=== PATIENT | male | born 1950 | race Caucasian/White ===

== ENCOUNTER 2019-12-18 10:17 | Outpatient (CLI) | payer MEDICARE, SELFPAY ==
[2019-12-18 10:37] LABS: Basophils Absolute Auto 0.04 K/mm3 (0.00-0.10); Basophils Percent Auto 0.6 % (0.0-1.0); Eosinophils Absolute Auto 0.19 K/mm3 (0.02-0.50); Eosinophils Percent Auto 2.9 % (1.0-6.0); Hemoglobin 15.1 g/dL (12.4-15.3); Immature Granulocyte Absolute 0.02 K/mm3 (0.00-0.00); Immature Granulocyte Percent A 0.3 % (0.0-0.0); Lymphocytes Absolute Auto 1.57 K/mm3 (1.10-4.50); Lymphocytes Percent Auto 23.9 % (18.0-42.0); Mean Corpuscular HGB Conc 32.1 g/dL (32.0-36.0); Mean Corpuscular Hemoglobin 28.7 pg (27.0-31.0); Mean Corpuscular Volume 89.4 fL (78.0-102.0); Mean Platelet Volume 9.9 fl (8.7-11.0); Monocytes Absolute Auto 0.43 K/mm3 (0.10-0.90); Monocytes Percent Auto 6.5 % (2.0-11.0); Neutrophils Absolute Auto 4.3 K/mm3 (1.7-7.2); Neutrophils Percent Auto 65.8 % (50.0-70.0); Platelet Count Result 201 K/mm3 (150-420); Red Blood Count 5.26 M/mm3 (4.70-6.10); Red Cell Distribution Width 13.5 % (11.6-14.4); White Blood Count 6.6 K/mm3 (4.8-10.8)
[2019-12-18 11:52] LABS: Alanine Aminotransferase 70 U/L (16-63); Albumin Level 3.4 g/dL (3.4-5.0); Alkaline Phosphatase 58 U/L (46-116); Aspartate Amino Transferase 35 U/L (15-37); Bilirubin Direct 0.2 mg/dL (0-0.2); Bilirubin,Total 0.3 mg/dL (0.00-1.00)
[2019-12-21 20:13] LABS: Vitamin D 25 Hydroxy 47 ng/mL (30-100)
[2019-12-23 05:35] LABS: Immunoglobulin A 375 mg/dL (70-320); Immunoglobulin G 1014 mg/dL (600-1540); Immunoglobulin M 75 mg/dL (50-300)
== END 2019-12-18 10:18 | disposition home or self-care (01) ==
PROVIDERS: PCP Nurse Practitioner Family
DX: G35 Multiple sclerosis (principal); Z79.899 Other long term (current) drug therapy
CPT/HCPCS: 36415; 80076; 82306; 82784; 85025; 86355

== ENCOUNTER 2019-12-27 10:41 | Emergency (ER) | payer MEDICARE, OTHER, SELFPAY ==
--- NOTE | ~2019-12-27 | XR_ITS ---
EXAMINATION: XR abdomen/kub 1V INDICATION: Abdominal cramping TECHNIQUE: Supine views of the abdomen were obtained on 2 radiographs. COMPARISON: None FINDINGS: The bowel gas pattern. No dilated there is no evidence of free gas the visualized lung base s are there is moderate osteoarthritis is IMPRESSION: 1. Unremarkable abdominal radiographs. Reviewed, dictated and finalized at location A.
--- NOTE | 2019-12-27 10:53 | ECG_ITS ---
Measurements Intervals [place] Rate: 71 P: 41 WV: 200 QRS: 12 QRSD: 114 T: 39 QT: 405 QTc: 442 Interpretive Statements SINUS RHYTHM BORDERLINE AV CONDUCTION DELAY INTRAVENTRICULAR CONDUCTION DELAY BASELINE WANDER- V6 BORDERLINE ECG Electronically Signed On 12-28-2019 7:07:20 CDT by Giovanny Lino D.O.
--- NOTE | 2019-12-27 11:03 | ED.ABDPAIN ---
HPI - Abdominal Pain General Chief Complaint: Chest Pain Stated Complaint: 69YO male w/ known h.o MS here c/o muscle spasm/cramping that started in his abd this morning. Patient admits to 5 episodes of cramping. HE called EMS and is transported into ED by EMS. Patient is currently asymptomatic. Denies N/V/D. Related Data Home Medications Medication Instructions Recorded Confirmed finasteride 5 mg tablet 5 mg PO DAILY 03/09/19 12/27/19 tamsulosin 0.4 mg capsule 0.4 mg PO DAILY 03/09/19 12/27/19 apixaban 10 mg PO BID 05/21/19 12/27/19 clonazepam 1 mg PO DIRECTED 05/21/19 12/27/19 metoprolol tartrate 25 mg PO BID 05/21/19 12/27/19 allopurinol 300 mg PO DAILY 12/27/19 12/27/19 amlodipine 10 mg PO DAILY 12/27/19 12/27/19 lisinopril 40 mg PO DAILY 12/27/19 12/27/19 Allergies Allergy/AdvReac Type Severity Reaction Status Date / Time diclofenac [Cataflam] Allergy Intermediate hypertensio Verified 10/13/19 13:03 n oseltamivir [Tamiflu] Allergy Intermediate Delusions Verified 10/13/19 13:03 Review of Systems Review of Systems: All systems reviewed & are unremarkable except as noted in HPI and below Constitutional: Constitutional: Reports as per HPI, Reports no additional constitutional complaints, Denies chills, Denies fever(s) and Reports weakness Eyes: Eyes: Reports as per HPI ENT: Reports system reviewed and no additional complaints, except as documented and Reports as per HPI Cardiovascular: Cardiovascular: Reports as per HPI and Reports no additional cardiovascular complaints Respiratory: Respiratory: Reports as per HPI and Reports no additional respiratory complaints Gastrointestinal: Gastrointestinal: Reports as per HPI and Reports no additional gastrointestinal complaints Genitourinary: Genitourinary: Reports no additional male genitourinary complaints and Reports as per HPI Musculoskeletal: Musculoskeletal: Reports no additional musculoskeletal complaints Integumentary/Breasts: Skin/Breast: Reports system reviewed and no additional complaints, except as docu Neurologic: Reports system reviewed and no additional complaints, except as documented Psychiatric: Psychiatric: Reports no additional psychiatric complaints Endocrine: Endocrine: Reports no additional endocrine complaints Hematologic/Lymphatic: Hematologic/Lymphatic: Reports no additional hematologic/lymphatic complaints [facility] Past Medical History Medical History Erectile dysfunction Foot pain ZENAIDA (generalized anxiety disorder) Generalized weakness History of pulmonary embolism HTN (hypertension) Insomnia Multiple sclerosis Surgical History Surgical History History of embolectomy Family History Family History Mother Hypertension Brother Hypertension Sister Hypertension Social History Social History Years smoked: 20 Smoking status: Former smoker Tobacco type: cigarettes Alcohol intake: former Substance use: never Gender identity (if verbalized by the patient): Male Spiritual care concerns: No Exam Const: General: no acute distress and alert; No confusion Nutritional Appearance: obese Orientation/consciousness: patient oriented x3 Limitations: No altered mental status HENMT: Head: normal to inspection Eyes: Conjunctivae: conjunctivae normal Pupils: Equal, round and reactive pupils present Neck: Neck: normal visual inspection Chest: Chest palpation & inspection: normal inspection of the chest Resp: Effort & Inspection: normal respiratory effort Auscultation: clear to auscultation bilaterally Cardio: Rate: regular rate Rhythm: regular rhythm GI: Inspection: non-distended GI Palp: Yes Soft to palpation, Yes Tenderness to palpation present (GI), No Guarding due to palpation
[2019-12-27 11:05] VITALS: BP 158/92; PULSE 72; RESP 17; TEMP 36.4; O2SAT 96
[2019-12-27 11:16] LABS: Basophils Absolute Auto 0.05 K/mm3 (0.00-0.10); Basophils Percent Auto 0.6 % (0.0-1.0); Eosinophils Absolute Auto 0.13 K/mm3 (0.02-0.50); Eosinophils Percent Auto 1.7 % (1.0-6.0); Hematocrit 45.1 % (37.0-46.0); Hemoglobin 14.6 g/dL (12.4-15.3); Immature Granulocyte Absolute 0.04 K/mm3 (0.00-0.00); Immature Granulocyte Percent A 0.5 % (0.0-0.0); Lymphocytes Absolute Auto 1.44 K/mm3 (1.10-4.50); Lymphocytes Percent Auto 18.6 % (18.0-42.0); Mean Corpuscular HGB Conc 32.4 g/dL (32.0-36.0); Mean Corpuscular Hemoglobin 28.8 pg (27.0-31.0); Mean Platelet Volume 9.9 fl (8.7-11.0); Monocytes Absolute Auto 0.49 K/mm3 (0.10-0.90); Monocytes Percent Auto 6.3 % (2.0-11.0); Neutrophils Absolute Auto 5.6 K/mm3 (1.7-7.2); Neutrophils Percent Auto 72.3 % (50.0-70.0); Platelet Count Result 195 K/mm3 (150-420); Red Blood Count 5.07 M/mm3 (4.70-6.10); Red Cell Distribution Width 13.4 % (11.6-14.4); White Blood Count 7.8 K/mm3 (4.8-10.8)
[2019-12-27 11:17] LABS: Add Urine Microscopic? NO; Appearance Urine Clear (Clear); Bilirubin Urine Negative (Negative); Blood Urine Negative (Negative); Color Urine Yellow (Yellow); Glucose Urine UA Negative (Negative); Ketones Urine Negative (Negative); Leukocyte Esterase Ur Negative LEU/UL (Negative); Nitrate Urine Negative (Negative); Protein Urine Negative (Negative); Specific Grav Ur 1.015 (1.010-1.020); Urobilinogen Urine 0.2 mg/dL (0.2-1.0)
[2019-12-27 11:30] LABS: INR 1.1
[2019-12-27 11:34] LABS: Alanine Aminotransferase 66 U/L (16-63); Albumin Level 3.2 g/dL (3.4-5.0); Alkaline Phosphatase 55 U/L (46-116); Anion Gap 8 mmol/L (8-16); Aspartate Amino Transferase 33 U/L (15-37); Bilirubin,Total 0.2 mg/dL (0.00-1.00); Blood Urea Nitrogen 13 mg/dL (7-18); Calcium 8.3 mg/dL (8.5-10.1); Carbon Dioxide 29 mmol/L (21-32); Chloride 104 mmol/L (98-108); Estimated Glomerular Filt Rate > 60; Glucose 121 mg/dL (70-99); Lipase 64 U/L (73-393); Osmolality Calculated 293 mOsm/kg (285-295); Potassium 3.8 mmol/L (3.5-5.1); Sodium 141 mmol/L (136-145); Troponin I < 0.02 ng/mL (0.00-0.056)
[2019-12-27 12:37] VITALS: BP 146/88; PULSE 67; RESP 17; O2SAT 98
== END 2019-12-27 12:50 | disposition home or self-care (01) ==
PROVIDERS: Emergency Provider Family Medicine; PCP Nurse Practitioner Family
DX: G35 Multiple sclerosis (principal); M62.838 Other muscle spasm; Z86.711 Personal history of pulmonary embolism; I10 Essential (primary) hypertension; Z87.891 Personal history of nicotine dependence; Z79.899 Other long term (current) drug therapy
CPT/HCPCS: 36415; 74018; 80053; 81003; 83690; 84484; 85025; 85610; 85730; 93005; 99283; 99284

== ENCOUNTER 2020-05-31 13:45 | Outpatient (CLI) | payer MEDICARE, SELFPAY ==
[2020-05-31 14:08] LABS: Basophils Absolute Auto 0.04 K/mm3 (0.00-0.10); Basophils Percent Auto 0.6 % (0.0-1.0); Eosinophils Absolute Auto 0.17 K/mm3 (0.02-0.50); Eosinophils Percent Auto 2.4 % (1.0-6.0); Hematocrit 46.8 % (37.0-46.0); Hemoglobin 15.2 g/dL (12.4-15.3); Immature Granulocyte Absolute 0.02 K/mm3 (0.00-0.00); Immature Granulocyte Percent A 0.3 % (0.0-0.0); Lymphocytes Absolute Auto 1.81 K/mm3 (1.10-4.50); Lymphocytes Percent Auto 25.2 % (18.0-42.0); Mean Corpuscular HGB Conc 32.5 g/dL (32.0-36.0); Mean Corpuscular Hemoglobin 28.7 pg (27.0-31.0); Mean Corpuscular Volume 88.3 fL (78.0-102.0); Mean Platelet Volume 9.5 fl (8.7-11.0); Neutrophils Absolute Auto 4.6 K/mm3 (1.7-7.2); Neutrophils Percent Auto 64.5 % (50.0-70.0); Platelet Count Result 213 K/mm3 (150-420); Red Cell Distribution Width 13.4 % (11.6-14.4); White Blood Count 7.2 K/mm3 (4.8-10.8)
[2020-05-31 15:07] LABS: Alanine Aminotransferase 55 U/L (16-63); Albumin Level 3.7 g/dL (3.4-5.0); Alkaline Phosphatase 67 U/L (46-116); Aspartate Amino Transferase 24 U/L (15-37); Bilirubin Direct 0.1 mg/dL (0-0.2); Bilirubin,Total 0.3 mg/dL (0.00-1.00); Total Protein 7.5 g/dL (6.4-8.2)
[2020-06-05 11:09] LABS: Immunoglobulin A 418 mg/dL (70-320); Immunoglobulin G 1086 mg/dL (600-1540); Immunoglobulin M 80 mg/dL (50-300)
[2020-06-08 13:01] LABS: Vitamin D 25 Hydroxy 39 ng/mL (30-100)
== END 2020-05-31 13:46 | disposition home or self-care (01) ==
LOC: CHSLAB 13:49
PROVIDERS: PCP Nurse Practitioner Family
DX: G35 Multiple sclerosis (principal); E55.9 Vitamin D deficiency, unspecified; D72.9 Disorder of white blood cells, unspecified
CPT/HCPCS: 36415; 80076; 82306; 82784; 85025; 86355

== ENCOUNTER 2020-06-13 16:14 | Outpatient (NON) | payer MEDICARE, SELFPAY | END 2020-06-13 16:15 | LOC: CHSLAB 16:16 | PROVIDERS: Visit Provider Nurse Practitioner Family | DX: R30.0 Dysuria (principal) | CPT/HCPCS: 87086; 87088 ==

== ENCOUNTER 2020-06-30 12:03 | Observation (INO) | payer MEDICARE, OTHER, SELFPAY ==
[2020-06-30] VITALS (10 sets, daily range): BP systolic 103–162; BP diastolic 68–98; PULSE 79–103; RESP 18–20; TEMP 36.9–38.6; O2SAT 91–93; BMI 47.9
--- NOTE | ~2020-06-30 | CT_ITS ---
EXAMINATION: CT brain wo con EXAM DATE: 06/30/2020 13:39 INDICATION: Head injury, fall yesterday with weakness post covid vaccine 3days ago. TECHNIQUE: Spiral CT of the head was performed without contrast. Axial, coronal and sagittal images were reviewed. The dose-length product (DLP) for this examination was 605.33 mGy-cm. The exposure w as tailored according to patient size, and iterative reconstruction (ASIR) was used as additional dos e reduction technique. Comparison is made to prior examination from 04/17/2017. FINDINGS: There is no acute intraparenchymal hemorrhage. No evidence of intraparenchymal brain mass lesion. No evidence of acute infarction. Please note that initial head CT has limited sensitivity f or small or acute infarctions. There is mild periventricular and subcortical hypodensity, nonspecific but probably related to small vessel ischemic disease. There is moderate prominence of the sulci a nd ventricles related to cerebral atrophy. There is intracranial carotid arteriosclerosis. There a re no extra-axial collections. There is no mass effect or midline shift. The orbits are unremarkabl e. Soft tissue is unremarkable. The visualized sinuses and mastoid air cells are well aerated. IMPRESSION: 1. No acute intracranial findings. 2. Chronic age related findings. Reviewed, dictated and finalized at location B. CIATE PROFESSOR OF ANTHROPOLOGY
--- NOTE | ~2020-06-30 | XR_ITS ---
XR chest 2V DATE: 06/30/2020 13:38 INDICATION: Weakness following Covid vaccination 3 days ago TECHNIQUE: AP and lateral views COMPARISON: 05/21/2019 portable AP chest FINDINGS: No pulmonary infiltrate or consolidation, pulmonary vascular congestion or pleural effusion . No pneumothorax. Mild aortic unfolding and calcification. IMPRESSION: No active disease Reviewed, dictated and finalized at location A. TESTBOARD WORKER IMPRESSION: No active disease
--- NOTE | 2020-06-30 12:48 | ECG_ITS ---
Measurements Intervals [place] Rate: 93 P: 44 AL: 190 QRS: 39 QRSD: 112 T: 44 QT: 399 QTc: 499 Interpretive Statements SINUS RHYTHM VENTRICULAR COUPLETS INTRAVENTRICULAR CONDUCTION DELAY NONSPECIFIC ST & T-WAVE ABNORMALITY- INF/LAT LEADS ABNORMAL ECG Electronically Signed On 06-30-2020 13:19:05 COSTUME RENTAL CLERK by Giovanny Lino D.O.
[2020-06-30 13:17] LABS: Basophils Absolute Auto 0.04 K/mm3 (0.00-0.10); Basophils Percent Auto 0.6 % (0.0-1.0); Eosinophils Absolute Auto 0.02 K/mm3 (0.02-0.50); Eosinophils Percent Auto 0.3 % (1.0-6.0); Hematocrit 45.9 % (37.0-46.0); Hemoglobin 15.2 g/dL (12.4-15.3); Immature Granulocyte Absolute 0.03 K/mm3 (0.00-0.00); Immature Granulocyte Percent A 0.5 % (0.0-0.0); Lymphocytes Absolute Auto 1.07 K/mm3 (1.10-4.50); Lymphocytes Percent Auto 17.1 % (18.0-42.0); Mean Corpuscular HGB Conc 33.1 g/dL (32.0-36.0); Mean Corpuscular Hemoglobin 28.6 pg (27.0-31.0); Mean Corpuscular Volume 86.4 fL (78.0-102.0); Mean Platelet Volume 9.8 fl (8.7-11.0); Monocytes Percent Auto 9.6 % (2.0-11.0); Neutrophils Absolute Auto 4.5 K/mm3 (1.7-7.2); Neutrophils Percent Auto 71.9 % (50.0-70.0); Platelet Count Result 165 K/mm3 (150-420); Red Blood Count 5.31 M/mm3 (4.70-6.10); Red Cell Distribution Width 13.6 % (11.6-14.4); White Blood Count 6.3 K/mm3 (4.8-10.8)
[2020-06-30] MEDS: SODIUM CHLORIDE 0.9% IV 1,000 ML 999 ML IV CONT (13:20)
[2020-06-30 13:32] LABS: INR 1.2; Partial Thromboplastin Time 37.1 SEC (23.90-30.70); Prothrombin Time 12.9 Seconds (9.50-12.10)
[2020-06-30 13:36] LABS: Alanine Aminotransferase 45 U/L (16-63); Albumin Level 3.1 g/dL (3.4-5.0); Alkaline Phosphatase 61 U/L (46-116); Anion Gap 10 mmol/L (8-16); Aspartate Amino Transferase 20 U/L (15-37); Bilirubin,Total 0.4 mg/dL (0.00-1.00); Blood Urea Nitrogen 10 mg/dL (7-18); Calcium 8.6 mg/dL (8.5-10.1); Carbon Dioxide 24 mmol/L (21-32); Chloride 102 mmol/L (98-108); Estimated CRCL calculation 82 ml/min; Estimated Glomerular Filt Rate > 60; Glucose 112 mg/dL (70-99); Lactic Acid Reflex 1.4 mmol/L (0.4-2.0); Magnesium 1.9 mg/dL (1.8-2.4); Osmolality Calculated 282 mOsm/kg (285-295); Potassium 3.7 mmol/L (3.5-5.1); Sodium 136 mmol/L (136-145); Total Protein 7.1 g/dL (6.4-8.2); Troponin I 8.5 ng/L (0.00-60.4)
[2020-06-30 13:38] LABS: BNP 64.7 pg/mL (0-100)
--- NOTE | 2020-06-30 14:20 | ED.SYNCOPE ---
HPI - Syncope General Chief Complaint: Syncope Stated Complaint: Ambulance Source: patient, family and EMS Mode of arrival: EMS Limitations: no limitations History of Present Illness HPI narrative: this is a 61-year-old gentleman presents via EMS after he has been feeling weak since he had a 2nd COVID vaccine on Saturday and earlier today he will forward striking his head with no loss of consciousness, the patient actually is not sure if he had any head injury but states that he fell forward and because of being on Eliquis the concern is that he hit his head. Otherwise no loss of consciousness the patient recalls this this event with no headaches no blurry vision no shortness of breath no fever or chills. The patient has a history of PE, history of stroke with right-sided weakness history of multiple sclerosis, hypertension and hyperlipidemia. complaint: felt faint and almost passed out Onset (ago): hour(s) Related Data Home Medications Medication Instructions Recorded Confirmed finasteride 5 mg tablet 5 mg PO DAILY 03/09/19 06/30/20 tamsulosin 0.4 mg capsule 0.4 mg PO DAILY 03/09/19 06/30/20 clonazepam 1 mg PO DIRECTED 05/21/19 06/30/20 tizanidine 4 mg capsule 4 mg PO DAILY PRN cap 12/28/19 06/30/20 allopurinol 300 mg PO DAILY 06/30/20 06/30/20 amlodipine 10 mg PO DAILY 06/30/20 06/30/20 apixaban [Eliquis] 10 mg PO BID 06/30/20 06/30/20 atorvastatin 20 mg PO DAILY 06/30/20 06/30/20 metoprolol tartrate 25 mg PO BID 06/30/20 06/30/20 Allergies Allergy/AdvReac Type Severity Reaction Status Date / Time diclofenac [Cataflam] Allergy Intermediate hypertensio Verified 06/30/20 12:46 n oseltamivir [Tamiflu] Allergy Intermediate Delusions Verified 06/30/20 12:46 Review of Systems Review of Systems: All systems reviewed & are unremarkable except as noted in HPI and below PMFSH Past Medical History Medical History (Updated 06/30/20 @ 14:28 by Rickie Maldonado MD) Erectile dysfunction Foot pain ZENAIDA (generalized anxiety disorder) Generalized weakness History of pulmonary embolism HTN (hypertension) Insomnia Multiple sclerosis Surgical History Surgical History History of embolectomy Family History Family History Mother Hypertension Brother Hypertension Sister Hypertension Social History Social History Years smoked: 20 Smoking status: Former smoker Tobacco type: cigarettes Alcohol intake: former Substance use: never Gender identity (if verbalized by the patient): Male Spiritual care concerns: No Exam Const: General: no acute distress and alert Orientation/consciousness: patient oriented x3 HENMT: Head: normal to inspection Eyes: Conjunctivae: conjunctivae normal Pupils: Equal, round and reactive pupils present Resp: Effort & Inspection: normal respiratory effort Auscultation: clear to auscultation bilaterally Cardio: Rate: regular rate Rhythm: regular rhythm Urinary Catheter: Urinary Catheter: patent and draining Back/Spine/Pelvis: Back: no CVA tenderness Skin: General skin exam: normal color Rashes: no rashes Extrem: General: normal to inspection Psych: Mental Status: mental status grossly normal Affect: normal affect Attitude: cooperative Course Course Emergency Course: Reassessment of patient continues to be comfortable with no acute pain no headaches no blurry vision but continues to feel weak. The patient received IV fluids and labs and CT and x-rays reviewed with patient and family and will admit patient for observation. Vital Signs Vital signs: Vital Signs Temperature 36.9 C 06/30/20 12:30 Pulse Rate 84 06/30/20 12:30 Respiratory Rate 20 06/30/20 12:30 Blood Pressure 103/68 06/30/20 12:30 Pulse Oximetry 91 06/30/20 12:30 Temperature 36.9 C 06/30/20 12:
[2020-06-30 15:47] LABS: Add Urine Microscopic? YES; Appearance Urine Clear (Clear); Bilirubin Urine Negative (Negative); Blood Urine Negative (Negative); Color Urine Yellow (Yellow); Glucose Urine UA Negative (Negative); Ketones Urine Trace (Negative); Leukocyte Esterase Ur 3+ (Negative); Nitrate Urine Negative (Negative); Protein Urine Negative (Negative); Specific Grav Ur 1.015 (1.010-1.020); Urobilinogen Urine 0.2 mg/dL (0.2-1.0)
[2020-06-30 16:43] LABS: WBC Clumps Urine Present /hpf; WBC Urine >75 /hpf (0-3)
[2020-06-30 16:44] LABS: Bacteria Urine 4+ /hpf
[2020-06-30] MEDS: APIXABAN 2.5 MG TABLET 10 MG BY MOUTH (20:29)
[2020-06-30] MEDS: clonazePAM (*CRX) 0.5 MG TABLET 2 MG PO (20:29)
[2020-06-30] MEDS: METOPROLOL TARTRATE 25 MG TABLET PO (20:30)
[2020-06-30] MEDS: LACTATED RINGERS 1,000 ML 100 ML IV CONT (20:47)
[2020-06-30] MEDS: ACETAMINOPHEN 325 MG TABLET 650 MG PO (23:40)
[2020-07-01 00:43] VITALS: TEMP 38.7
--- NOTE | 2020-07-01 01:53 | PC.NURSE ---
pt sleeping, iv fluids infusing per order, no evidence of distress noted at this time.
[2020-07-01 02:39] LABS: Basophils Absolute Auto 0.03 K/mm3 (0.00-0.10); Basophils Percent Auto 0.5 % (0.0-1.0); Eosinophils Absolute Auto 0.04 K/mm3 (0.02-0.50); Eosinophils Percent Auto 0.6 % (1.0-6.0); Hematocrit 43.4 % (37.0-46.0); Hemoglobin 14.4 g/dL (12.4-15.3); Immature Granulocyte Absolute 0.02 K/mm3 (0.00-0.00); Immature Granulocyte Percent A 0.3 % (0.0-0.0); Lymphocytes Absolute Auto 1.58 K/mm3 (1.10-4.50); Lymphocytes Percent Auto 24.4 % (18.0-42.0); Mean Corpuscular HGB Conc 33.2 g/dL (32.0-36.0); Mean Corpuscular Hemoglobin 28.9 pg (27.0-31.0); Mean Platelet Volume 9.8 fl (8.7-11.0); Monocytes Absolute Auto 0.83 K/mm3 (0.10-0.90); Monocytes Percent Auto 12.8 % (2.0-11.0); Neutrophils Percent Auto 61.4 % (50.0-70.0); Platelet Count Result 174 K/mm3 (150-420); Red Blood Count 4.99 M/mm3 (4.70-6.10); Red Cell Distribution Width 13.6 % (11.6-14.4); White Blood Count 6.5 K/mm3 (4.8-10.8)
[2020-07-01 03:13] LABS: Alanine Aminotransferase 35 U/L (16-63); Albumin Level 2.8 g/dL (3.4-5.0); Alkaline Phosphatase 52 U/L (46-116); Anion Gap 11 mmol/L (8-16); Aspartate Amino Transferase 19 U/L (15-37); Bilirubin,Total 0.3 mg/dL (0.00-1.00); Blood Urea Nitrogen 13 mg/dL (7-18); Calcium 7.9 mg/dL (8.5-10.1); Carbon Dioxide 23 mmol/L (21-32); Chloride 105 mmol/L (98-108); Estimated CRCL calculation 90 ml/min; Estimated Glomerular Filt Rate > 60; Glucose 137 mg/dL (70-99); Osmolality Calculated 290 mOsm/kg (285-295); Potassium 3.7 mmol/L (3.5-5.1); Sodium 139 mmol/L (136-145); Total Protein 6.3 g/dL (6.4-8.2)
[2020-07-01 04:00] VITALS: BP 98/69; PULSE 80; RESP 20; TEMP 37.3; O2SAT 90
[2020-07-01] MEDS: LACTATED RINGERS 1,000 ML 100 ML IV CONT (06:18)
[2020-07-01 08:00] VITALS: BP 119/82; PULSE 83; RESP 18; TEMP 36.9; O2SAT 92
--- NOTE | 2020-07-01 08:17 | PM.DS ---
DS: Summary Hospital Course Hospital Course: This is a 61-year-old male that presented to [facility] ED via EMS after generalized weakness post fall. Patient has a past medical history of erectile dysfunction, foot pain, ZENAIDA, general lysed weakness, history of PE, hypertension, insomnia and multiple sclerosis. According to patient a couple of weeks ago he presented to his primary care physician office and was found to have a urinary tract infection and given antibiotics that he had completed he also notes that he received his Covid vaccine on Saturday and afterwards he became very fatigued, with generalized weakness. Patient notes that he has been lying in bed since his Covid vaccine. While his was attempting to transfer him out of the wheelchair patient fell for he does deny hitting his head. Patient CT of his head negative for any infarcts or fractures patient chest x-ray unremarkable UA did indicate leukocytes, lactic acid negative. Patient was started on Rocephin. Patient was admitted for generalized weakness and urinary tract infection. Today patient states that his condition is much improved we will consult PT OT to see if he will need outpatient physical therapy/Occupational Therapy will also discharged with Bactrim to treat his urinary tract infection his UA culture is pending. The patient denies SOB, CP, palpitation, extremity numbness, headache, vertigo, double vision, visual disturbance, lightheadedness, dizziness, constipation, diarrhea, chills, or fever. Time Spent with Patient Time attestation: Total time spent providing and/or coordinating discharge services: DS: Data Data Completed and Pending Labs on day of discharge: Labs from last 24 hours 07/01/20 07/01/20 06/30/20 02:33 02:33 15:41 WBC 6.5 RBC 4.99 Hgb 14.4 Hct 43.4 MCV 87.0 MCH 28.9 MCHC 33.2 RDW 13.6 Plt Count 174 MPV 9.8 Immature Gran % (Auto) 0.3 H Neut % (Auto) 61.4 Lymph % (Auto) 24.4 Archer % (Auto) 12.8 H Eos % (Auto) 0.6 L Baso % (Auto) 0.5 Lymph # (Auto) 1.58 Archer # (Auto) 0.83 Eos # (Auto) 0.04 Baso # (Auto) 0.03 Abs Immat Gran (auto) 0.02 H Absolute Neuts (auto) 4.0 Absolute Nucleated RBC 0.00 Nucleated RBC % 0.0 PT INR APTT Sodium 139 Potassium 3.7 Chloride 105 Carbon Dioxide 23 Anion Gap 11 BUN 13 Creatinine 1.12 Estim Creat Clear Calc 90 Estimated GFR > 60 Glucose 137 H Calculated Osmolality 290 Lactic Acid Calcium 7.9 L Magnesium Total Bilirubin 0.3 AST 19 ALT 35 Alkaline Phosphatase 52 Troponin I B-Natriuretic Peptide Total Protein 6.3 L Albumin 2.8 L Urine Color Yellow Urine Appearance Clear Urine pH 7.0 Ur Specific Macy 1.015 Urine Protein Negative Urine Glucose (UA) Negative Urine Ketones Trace H Ur Blood (Man) Negative Urine Nitrate Negative Urine Bilirubin Negative Urine Urobilinogen 0.2 Ur Leukocyte Esterase 3+ H Urine WBC >75 H Urine WBC Clumps Present H Urine Bacteria 4+ H 06/30/20 06/30/20 06/30/20 13:12 13:12 13:12 WBC RBC Hgb Hct MCV MCH MCHC RDW Plt Count MPV Immature Gran % (Auto) Neut % (Auto) Lymph % (Auto) Archer % (Auto) Eos % (Auto) Baso % (Auto) Lymph # (Auto) Archer # (Auto) Eos # (Auto) Baso # (Auto) Abs Immat Gran (auto) Absolute Neuts (auto) Absolute Nucleated RBC Nucleated RBC % PT 12.9 H INR 1.2 APTT 37.1 H Sodium 136 Potassium 3.7 Chloride 102 Carbon Dioxide 24 Anion Gap 10 BUN 10 Creatinine 1.06 Estim Creat Clear Calc 82 Estimated GFR > 60 Glucose 112 H Calculated Osmolality 282 L Lactic Acid 1.4 Calcium 8.6 Magnesium 1.9 Total Bilirubin 0.4 AST 20 ALT 45 Alkaline Phosphatase 61 Troponin I 8.5 B-Natriuretic Peptide 64.7 Tot
[2020-07-01] MEDS: DULoxetine HCL 30 MG CAPSULE.DR 60 MG PO (08:46)
[2020-07-01] MEDS: APIXABAN 2.5 MG TABLET 10 MG BY MOUTH (08:46)
[2020-07-01] MEDS: ATORVASTATIN 10 MG TABLET 20 MG PO (08:47)
[2020-07-01] MEDS: FINASTERIDE 5 MG TABLET PO (08:47)
[2020-07-01] MEDS: lisinopriL 20 MG TABLET 40 MG PO (08:47)
[2020-07-01] MEDS: allopurinoL 300 MG TABLET PO (08:47)
[2020-07-01] MEDS: TAMSULOSIN HCL 0.4 MG CAPSULE PO (08:47)
[2020-07-01 08:48] VITALS: PULSE 83
[2020-07-01] MEDS: METOPROLOL TARTRATE 25 MG TABLET PO (08:48)
[2020-07-01] MEDS: amLODIPine BESYLATE 5 MG TABLET 10 MG PO (08:48)
--- NOTE | 2020-07-01 09:54 | PM.SD2 ---
Same Day Admit/Disch: HPI History of Present Illness Chief complaint: weakness dehydration <SONIYA Roe - Last Filed: 07/01/20 11:25> Narrative: This is a 61-year-old male that presented to [facility] ED via EMS after generalized weakness post fall. Patient has a past medical history of erectile dysfunction, foot pain, ZENAIDA, general lysed weakness, history of PE, hypertension, insomnia and multiple sclerosis. According to patient a couple of weeks ago he presented to his primary care physician office and was found to have a urinary tract infection and given antibiotics that he had completed he also notes that he received his Covid vaccine on Saturday and afterwards he became very fatigued, with generalized weakness. Patient notes that he has been lying in bed since his Covid vaccine. While his was attempting to transfer him out of the wheelchair patient fell for he does deny hitting his head. Patient CT of his head negative for any infarcts or fractures patient chest x-ray unremarkable UA did indicate leukocytes, lactic acid negative. Patient was started on Rocephin. Patient was admitted for generalized weakness and urinary tract infection. Today patient states that his condition is much improved we will consult PT OT to see if he will need outpatient physical therapy/Occupational Therapy will also discharged with Bactrim to treat his urinary tract infection his UA culture is pending. The patient denies SOB, CP, palpitation, extremity numbness, headache, vertigo, double vision, visual disturbance, lightheadedness, dizziness, constipation, diarrhea, chills, or fever. Disposition: Patient will discharge home with the [facility]pc and home health/PT OT Patient being treated for urinary tract infection and prostatitis he will take Bactrim for 4 weeks <SONIYA Roe - Last Filed: 07/01/20 11:25> PMF Past Medical History Medical History: Medical History (Updated 07/01/20 @ 11:23 by SONIYA Roe) Erectile dysfunction Foot pain ZENAIDA (generalized anxiety disorder) Generalized weakness History of pulmonary embolism HTN (hypertension) Insomnia Multiple sclerosis <SONIYA Roe - Last Filed: 07/01/20 11:25> Surgical History Surgical History: Surgical History History of embolectomy <SONIYA Roe - Last Filed: 07/01/20 11:25> Family History Family History: Family History Mother Hypertension Brother Hypertension Sister Hypertension <SONIYA Roe - Last Filed: 07/01/20 11:25> Social History Social History: Social History Years smoked: 20 Smoking status: Former smoker Tobacco type: cigarettes Alcohol intake: former Drinks per week: 12 Substance use: never Gender identity (if verbalized by the patient): Male Spiritual care concerns: No <SONIYA Roe - Last Filed: 07/01/20 11:25> Same Day Admit/Disch: Med Pre-admit Medications Home Medications: Home Medications Medication Instructions Recorded Confirmed Type finasteride 5 mg tablet 5 mg PO DAILY 03/09/19 06/30/20 History tamsulosin 0.4 mg capsule 0.4 mg PO DAILY 03/09/19 06/30/20 History clonazepam 1 mg PO DIRECTED 05/21/19 06/30/20 History tizanidine 4 mg capsule 4 mg PO DAILY PRN cap 12/28/19 06/30/20 History duloxetine 30 mg capsule,delayed 60 mg PO DAILY #180 cap 04/04/20 06/30/20 Rx release lidocaine 5 % topical patch See Rx Instructions .ROUTE 05/02/20 06/30/20 Rx .COMPLEX #30 patch lisinopril 40 mg tablet 40 mg PO DAILY #90 tablet 05/23/20 06/30/20 Rx Eliquis 10 mg PO BID 06/30/20 06/30/20 History allopurinol 300 mg PO DAILY 06/30/20 06/30/20 History amlodipine 10 mg PO DAILY 06/30/20 06/30/20 History atorvastatin 20 mg PO DAILY 06/30/20 06/30/20 History
[2020-07-01 12:00] VITALS: BP 108/84; PULSE 88; RESP 18; TEMP 36.9; O2SAT 91
[2020-07-01] MEDS: clonazePAM (*CRX) 0.5 MG TABLET 1 MG PO (12:04)
--- NOTE | 2020-07-01 14:31 | PC.NURSE ---
Patient left the floor via wheelchair. Patient discharged to home. Left with his . Discharge instruction given to patient. All personal belongings left with patient.
--- NOTE | 2020-07-05 14:14 | PC.NURSE ---
Pt states he received and understood his discharge instructions. Pt has no other comments.
== END 2020-07-01 13:25 | disposition home health service (06) ==
LOC: CHSED 14:28 → CHS2ND 14:45
PROVIDERS: Admitting Provider Emergency Medicine; Emergency Provider Emergency Medicine; PCP Nurse Practitioner Family; Visit Provider Emergency Medicine
DX: N39.0 Urinary tract infection, site not specified (principal); E86.0 Dehydration; N40.0 Benign prostatic hyperplasia without lower urinary tract symptoms; I69.351 Hemiplegia and hemiparesis following cerebral infarction affecting right dominant side; G35 Multiple sclerosis; I10 Essential (primary) hypertension; E78.5 Hyperlipidemia, unspecified; M19.90 Unspecified osteoarthritis, unspecified site; F41.1 Generalized anxiety disorder; Z86.711 Personal history of pulmonary embolism; Z79.02 Long term (current) use of antithrombotics/antiplatelets; Z87.891 Personal history of nicotine dependence
CPT/HCPCS: 36415; 70450; 71046; 80053; 81001; 83605; 83735; 83880; 84484; 85025; 85610; 85730; 87040; 87077; 87086; 87088; 87186; 93005; 96360; 96361; 96365; 96366; 97162; 97165; 99285; A9270; G0378; J0696; J7030; J7120

== ENCOUNTER 2020-11-24 20:44 | Emergency (ER) | payer MEDICARE, OTHER, SELFPAY ==
[2020-11-24 21:41] VITALS: BP 156/100; PULSE 101; RESP 20; TEMP 36.8; O2SAT 94
--- NOTE | 2020-11-24 22:08 | ED.ALCOHOL ---
HPI - Alcohol General Chief Complaint: Urogenital-Male Stated Complaint: possible UTI Time Seen by Provider: 11/24/20 21:43 Source: patient and RN notes reviewed Mode of arrival: wheelchair Limitations: no limitations History of Present Illness HPI narrative: urinary hesitancy which suggests a UTI from prior experience. Chronic alcohol use: No Recent trauma: No Associated symptoms: denies other symptoms Treatments prior to arrival: none Related Data Home Medications Medication Instructions Recorded Confirmed finasteride 5 mg tablet 5 mg PO DAILY 03/09/19 11/24/20 tamsulosin 0.4 mg capsule 0.4 mg PO DAILY 03/09/19 11/24/20 clonazepam 1 mg PO DIRECTED 05/21/19 11/24/20 tizanidine 4 mg capsule 4 mg PO DAILY PRN cap 12/28/19 11/24/20 Eliquis 10 mg PO BID 06/30/20 11/24/20 allopurinol 300 mg PO DAILY 06/30/20 11/24/20 atorvastatin 20 mg PO DAILY 06/30/20 11/24/20 metoprolol tartrate 25 mg PO BID 06/30/20 11/24/20 Allergies Allergy/AdvReac Type Severity Reaction Status Date / Time diclofenac [Cataflam] Allergy Intermediate hypertensio Verified 11/03/20 07:47 n oseltamivir [Tamiflu] Allergy Intermediate Delusions Verified 11/03/20 07:47 Review of Systems Review of Systems: All systems reviewed & are unremarkable except as noted in HPI and below Constitutional: Constitutional: Reports as per HPI and Reports no additional constitutional complaints Eyes: Eyes: Reports as per HPI and Reports no additional eye complaints ENT: Reports system reviewed and no additional complaints, except as documented and Reports as per HPI Cardiovascular: Cardiovascular: Reports as per HPI and Reports no additional cardiovascular complaints Respiratory: Respiratory: Reports as per HPI and Reports no additional respiratory complaints Gastrointestinal: Gastrointestinal: Reports as per HPI and Reports no additional gastrointestinal complaints Genitourinary: Genitourinary: Reports no additional male genitourinary complaints and Reports as per HPI Musculoskeletal: Musculoskeletal: Reports no additional musculoskeletal complaints and Reports as per HPI Comments: Pt has MS Integumentary/Breasts: Skin/Breast: Reports system reviewed and no additional complaints, except as docu and Reports as per HPI Neurologic: Reports system reviewed and no additional complaints, except as documented and Reports as per HPI Psychiatric: Psychiatric: Reports no additional psychiatric complaints and Reports as per HPI Endocrine: Endocrine: Reports no additional endocrine complaints and Reports as per HPI Hematologic/Lymphatic: Hematologic/Lymphatic: Reports no additional hematologic/lymphatic complaints and Reports as per HPI Allergic/Immunologic: Allergic/Immunologic: Reports no additional allergic/immunologic complaints and Reports as per HPI [facility] Past Medical History Medical History (Updated 11/24/20 @ 22:21 by Silvia Lazcano MD) Erectile dysfunction Foot pain ZENAIDA (generalized anxiety disorder) Generalized weakness History of pulmonary embolism HTN (hypertension) Insomnia Multiple sclerosis Surgical History Surgical History History of embolectomy Family History Family History Mother Hypertension Brother Hypertension Sister Hypertension Social History Social History Years smoked: 20 Smoking status: Never smoker Tobacco type: cigarettes Alcohol intake: former Drinks per week: 12 Substance use: never Gender identity (if verbalized by the patient): Male Spiritual care concerns: No Exam Const: General: no acute distress Orientation/consciousness: patient oriented x3 Limitations: no limitations HENMT: Head: normal to inspection Ears: external ears normal and TM's normal bilaterally General nose exam: Normal external nose present and [place]
[2020-11-24] MEDS: LIDOCAINE HCL 1% LOCAL INJ 20 ML VIAL (22:14)
[2020-11-24] MEDS: cefTRIAXone 1 GM VIAL IM (22:14)
[2020-11-24 22:17] LABS: Appearance Urine Cloudy (Clear); Bilirubin Urine Negative (Negative); Blood Urine 3+ (Negative); Glucose Urine UA Negative (Negative); Ketones Urine Negative (Negative); Leukocyte Esterase Ur Negative (Negative); Nitrate Urine Positive (Negative); Protein Urine 3+ (Negative); Specific Grav Ur 1.025 (1.010-1.020); Urobilinogen Urine 0.2 mg/dL (0.2-1.0)
[2020-11-24 22:23] LABS: Add Urine Microscopic? YES; Color Urine Light Red (Yellow)
[2020-11-24 22:24] LABS: Bacteria Urine 4+ /hpf; RBC Urine >75 /hpf (0-2); Squamous Epithelial Cell Urine None seen /hpf (Few); WBC Urine 0-3 /hpf (0-3)
[2020-11-24 22:40] VITALS: BP 150/98; PULSE 90; RESP 18; TEMP 36.3; O2SAT 100
== END 2020-11-24 22:42 | disposition home or self-care (01) ==
PROVIDERS: Emergency Provider Emergency Medicine; PCP Nurse Practitioner Family
DX: N30.00 Acute cystitis without hematuria (principal); I10 Essential (primary) hypertension; G35 Multiple sclerosis
CPT/HCPCS: 81001; 96372; 99283; J0696

== ENCOUNTER 2020-12-08 10:26 | Outpatient (NON) | payer MEDICARE, OTHER, SELFPAY | END 2020-12-08 10:27 | disposition home or self-care (01) | LOC: CHSLAB 10:27 | PROVIDERS: Visit Provider Nurse Practitioner Family | DX: R39.9 Unspecified symptoms and signs involving the genitourinary system (principal) | CPT/HCPCS: 87086; 87088 ==

== ENCOUNTER 2021-07-04 11:21 | Outpatient (NON) | payer MEDICARE, SELFPAY | END 2021-07-04 11:22 | disposition home or self-care (01) | LOC: CHSLAB 11:22 | PROVIDERS: Visit Provider Nurse Practitioner Family | DX: N39.0 Urinary tract infection, site not specified (principal) | CPT/HCPCS: 87086; 87088 ==

== ENCOUNTER 2021-12-02 10:19 | Emergency (ER) | payer MEDICARE, SELFPAY ==
[2021-12-02 10:19] VITALS: BP 135/91; PULSE 77; RESP 20; TEMP 36.5; O2SAT 97
--- NOTE | 2021-12-02 10:34 | ED.MALEGU ---
HPI - Male Genitourinary General Chief complaint: Urogenital-Male Stated complaint: abdomin pain Time Seen by Provider: 12/02/21 10:34 Source: patient and RN notes reviewed Mode of arrival: ambulatory Limitations: no limitations History of Present Illness Complaint: dysuria Onset (ago): day(s) (1) Duration: constant Severity: moderate Quality: burning Relieving factors: none Exacerbating factors: urination Associated symptoms: Reports denies other symptoms Related Data Home Medications Medication Instructions Recorded Confirmed finasteride 5 mg tablet 5 mg PO DAILY 03/09/19 11/24/20 tamsulosin 0.4 mg capsule (Flomax) 0.4 mg PO DAILY 03/09/19 11/24/20 clonazepam 1 mg tablet 1 mg PO DIRECTED 05/21/19 11/24/20 tizanidine 4 mg capsule 4 mg PO DAILY PRN Muscle Pain 12/28/19 11/24/20 Allergies Allergy/AdvReac Type Severity Reaction Status Date / Time diclofenac [Cataflam] Allergy Intermediate hypertensio Verified 04/04/21 08:35 n oseltamivir [Tamiflu] Allergy Intermediate Delusions Verified 04/04/21 08:35 Review of Systems Review of Systems: All systems reviewed & are unremarkable except as noted in HPI and below PMFSH Past Medical History Medical History (Updated 12/02/21 @ 11:15 by Otis Pelletier MD) Erectile dysfunction Foot pain ZENAIDA (generalized anxiety disorder) Generalized weakness History of pulmonary embolism HTN (hypertension) Insomnia Multiple sclerosis Surgical History Surgical History History of embolectomy Family History Family History Mother Hypertension Brother Hypertension Sister Hypertension Social History Social History Years smoked: 20 Smoking status: Never smoker Tobacco type: cigarettes Alcohol intake: former Drinks per week: 12 Substance use: never Gender identity (if verbalized by the patient): Male Sexual Orientation (if Verbalized by the Patient): Straight or Heterosexual Spiritual care concerns: No Exam Const: General: no acute distress, alert and ill appearing chronically Nutritional Appearance: well nourished and obese morbidly obese Limitations: no limitations HENMT: Head: normal to inspection Eyes: Conjunctivae: conjunctivae normal Pupils: Equal, round and reactive pupils present EOM: EOMs intact bilaterally Neck: Neck: normal visual inspection Resp: Effort & Inspection: normal respiratory effort Auscultation: clear to auscultation bilaterally Cardio: Rate: regular rate Rhythm: regular rhythm GI: GI Palp: Yes Soft to palpation and No Tenderness to palpation present (GI) Auscultation: normal bowel sounds Skin: General skin exam: normal color Neuro: General: patient oriented x3 Cranial nerves: Yes CN's II-XII intact bilaterally Speech: normal speech Other: Patient is wheelchair-bound. He is able to move his upper extremities without difficulty. Lower extremities are weak. Extrem: General: edema bilateral Psych: Mental Status: mental status grossly normal Affect: normal affect Attitude: cooperative Course Vital Signs Vital signs: Vital Signs Temperature 36.5 C 12/02/21 10:19 Pulse Rate 77 12/02/21 10:19 Respiratory Rate 20 12/02/21 10:19 Blood Pressure 135/91 H 12/02/21 10:19 Pulse Oximetry 97 12/02/21 10:19 Oxygen Delivery Room Air 12/02/21 10:19 Temperature 36.5 C 12/02/21 11:24 Pulse Rate 77 12/02/21 11:24 Respiratory Rate 20 12/02/21 11:24 Blood Pressure 137/86 12/02/21 11:24 Pulse Oximetry 97 12/02/21 11:24 Oxygen Delivery Room Air 12/02/21 11:24 MDM - Male Genitourinary Differential Diagnosis Differential diagnosis: Likely urinary tract infection, urethritis and acute retention of urine Lab Data Attestation: I reviewed the patient's lab results. Labs: Lab Results 12/02/21 Range/Unit
[2021-12-02 11:01] LABS: Add Urine Microscopic? YES; Appearance Urine Clear (Clear); Bilirubin Urine Negative (Negative); Blood Urine 3+ (Negative); Color Urine Yellow (Yellow); Glucose Urine UA Negative (Negative); Ketones Urine Negative (Negative); Leukocyte Esterase Ur Negative LEU/UL (Negative); Nitrate Urine Negative (Negative); Protein Urine 1+ (Negative); Specific Grav Ur 1.025 (1.010-1.020); Urobilinogen Urine 0.2 mg/dL (0.2-1.0)
[2021-12-02 11:06] LABS: Bacteria Urine Trace /hpf; RBC Urine >75 /hpf (0-2); Squamous Epithelial Cell Urine Rare /hpf (Few); WBC Urine None seen /hpf (0-3)
[2021-12-02 11:24] VITALS: BP 137/86; PULSE 77; RESP 20; TEMP 36.5; O2SAT 97
== END 2021-12-02 11:57 | disposition home or self-care (01) ==
PROVIDERS: Emergency Provider Emergency Medicine; PCP Nurse Practitioner Family
DX: N40.1 Benign prostatic hyperplasia with lower urinary tract symptoms (principal); I10 Essential (primary) hypertension; G35 Multiple sclerosis; Z87.891 Personal history of nicotine dependence
CPT/HCPCS: 81001; 99283

== ENCOUNTER 2021-12-04 07:28 | Observation (INO) | payer MEDICARE, SELFPAY ==
[2021-12-04] VITALS (14 sets, daily range): BP systolic 90–174; BP diastolic 60–89; PULSE 82–122; RESP 15–25; TEMP 37.2–38.1; O2SAT 90–95; BMI 40.8
--- NOTE | ~2021-12-04 | XR_ITS ---
EXAMINATION: XR chest 1V portable DATE: 12/04/2021 09:32 INDICATION: Fever. TECHNIQUE: A single frontal view of the chest was obtained. COMPARISON: Chest 2 views 06/30/2020, chest CT 06/19/2018 FINDINGS: The chest demonstrates clear lungs without pneumonia, pleural effusion, or pneumothorax. Th e heart size is normal. IMPRESSION: 1. No acute cardiopulmonary disease. Reviewed, dictated and finalized at location A.
--- NOTE | 2021-12-04 08:04 | ECG_ITS ---
Measurements Intervals [place] Rate: 120 P: 46 RI: 171 QRS: 37 QRSD: 112 T: 15 QT: 361 QTc: 510 Interpretive Statements SINUS TACHYCARDIA INCOMPLETE RIGHT BUNDLE BRANCH BLOCK ST & T-WAVE ABNORMALITY ANTEROLATERAL LEADS, CONSIDER MYOCARDIAL ISCHEMIA ABNORMAL ECG COMPARED TO ECG 06/30/2020 13:03:30 SINUS TACHYCARDIA NOW PRESENT INCOMPLETE RIGHT BUNDLE-BRANCH BLOCK NOW PRESENT Electronically Signed On 12-04-2021 16:34:05 CDT by Jay Conroy M.D.
[2021-12-04 08:30] LABS: Basophils Absolute Auto 0.03 K/mm3 (0.00-0.10); Basophils Percent Auto 0.5 % (0.0-1.0); Eosinophils Absolute Auto 0.03 K/mm3 (0.02-0.50); Eosinophils Percent Auto 0.5 % (1.0-6.0); Hematocrit 46.4 % (37.0-46.0); Hemoglobin 15.1 g/dL (12.4-15.3); Immature Granulocyte Absolute 0.03 K/mm3 (0.00-0.00); Immature Granulocyte Percent A 0.5 % (0.0-0.0); Lymphocytes Absolute Auto 0.86 K/mm3 (1.10-4.50); Mean Corpuscular HGB Conc 32.5 g/dL (32.0-36.0); Mean Corpuscular Hemoglobin 28.7 pg (27.0-31.0); Mean Platelet Volume 9.5 fl (8.7-11.0); Monocytes Percent Auto 9.1 % (2.0-11.0); Neutrophils Absolute Auto 5.1 K/mm3 (1.7-7.2); Neutrophils Percent Auto 76.4 % (50.0-70.0); Platelet Count Result 191 K/mm3 (150-420); Red Blood Count 5.27 M/mm3 (4.70-6.10); Red Cell Distribution Width 13.8 % (11.6-14.4); White Blood Count 6.6 K/mm3 (4.8-10.8)
[2021-12-04 08:39] LABS: Add Urine Microscopic? YES; Appearance Urine Clear (Clear); Bilirubin Urine Negative (Negative); Blood Urine Negative (Negative); Color Urine Yellow (Yellow); Glucose Urine UA Negative (Negative); Ketones Urine 1+ (Negative); Leukocyte Esterase Ur Negative LEU/UL (Negative); Nitrate Urine Negative (Negative); Protein Urine Negative (Negative); Urobilinogen Urine 0.2 mg/dL (0.2-1.0)
[2021-12-04 08:45] LABS: RBC Urine 0-2 /hpf (0-2)
[2021-12-04] MEDS: ACETAMINOPHEN 500 MG TABLET 1000 MG PO (08:45)
[2021-12-04 08:46] LABS: Amorphous Sediment Urine Moderate; Bacteria Urine Trace /hpf
[2021-12-04] MEDS: LACTATED RINGERS 2,000 ML 999 ML IV CONT (08:47)
[2021-12-04 08:48] LABS: INR 1.1; Partial Thromboplastin Time 36.8 SEC (23.90-30.70); Prothrombin Time 11.8 Seconds (9.50-12.10)
[2021-12-04 08:57] LABS: SARS-CoV-2 Ag Negative (Negative)
[2021-12-04 09:00] LABS: Alanine Aminotransferase 72 U/L (16-63); Albumin Level 3.7 g/dL (3.4-5.0); Alkaline Phosphatase 62 U/L (46-116); Anion Gap 12 mmol/L (8-16); Aspartate Amino Transferase 37 U/L (15-37); Bilirubin,Total 0.6 mg/dL (0.00-1.00); Blood Urea Nitrogen 10 mg/dL (7-18); Calcium 8.9 mg/dL (8.5-10.1); Carbon Dioxide 26 mmol/L (21-32); Chloride 100 mmol/L (98-108); Estimated CRCL calculation 87 ml/min; Estimated Glomerular Filt Rate > 60; Glucose 123 mg/dL (70-99); Lipase 55 U/L (73-393); Osmolality Calculated 286 mOsm/kg (285-295); Potassium 3.7 mmol/L (3.5-5.1); Sodium 138 mmol/L (136-145); Total Protein 8.3 g/dL (6.4-8.2)
[2021-12-04 09:02] LABS: NT Pro B Type Natriuretic Pept 91 pg/mL (0-125)
[2021-12-04 09:07] LABS: Lactic Acid Reflex 1.3 mmol/L (0.4-2.0)
--- NOTE | 2021-12-04 09:09 | ED.GENADULT ---
HPI - General Adult General Chief complaint: Weakness Stated complaint: AMBULANCE Source: patient Mode of arrival: EMS Limitations: no limitations History of Present Illness HPI narrative: is a 71-year-old male with multiple medical comorbidities presenting to ED with a chief weakness. Patient was seen here several days ago for flu-like symptoms. His workup was negative at that time including a negative COVID and urinary analysis. At this time the patient is complaining of a nonproductive cough, fever, generalized weakness and nausea. He chest pain, shortness of breath, abdominal pain, dysuria, urinary urgency or frequency, vomiting or diarrhea. He has had decreased oral intake over the last several days he has been too weak to eat. Related Data Home Medications Medication Instructions Recorded Confirmed finasteride 5 mg tablet 5 mg PO DAILY 03/09/19 12/04/21 tamsulosin 0.4 mg capsule (Flomax) 0.4 mg PO DAILY 03/09/19 12/04/21 clonazepam 1 mg tablet 1 mg PO DIRECTED 05/21/19 12/04/21 tizanidine 4 mg capsule 4 mg PO DAILY PRN Muscle Pain 12/28/19 12/04/21 Allergies Allergy/AdvReac Type Severity Reaction Status Date / Time diclofenac [Cataflam] Allergy Intermediate hypertensio Verified 04/04/21 08:35 n oseltamivir [Tamiflu] Allergy Intermediate Delusions Verified 04/04/21 08:35 Review of Systems Constitutional: Constitutional: Reports fatigue and Reports fever(s) Eyes: Eyes: Denies change in vision ENT: Denies dysphagia Cardiovascular: Cardiovascular: Denies chest pain Respiratory: Respiratory: Denies chest congestion and Reports cough Gastrointestinal: Gastrointestinal: Denies abdominal pain Genitourinary: Genitourinary: Denies hematuria Musculoskeletal: Musculoskeletal: Reports myalgias Integumentary/Breasts: Skin/Breast: Denies erythema Neurologic: Denies confusion Psychiatric: Psychiatric: Denies anxiety Endocrine: Endocrine: Denies excessive sweating Hematologic/Lymphatic: Hematologic/Lymphatic: Denies easy bleeding Allergic/Immunologic: Allergic/Immunologic: Denies lip swelling PMFSH Past Medical History Medical History (Updated 12/04/21 @ 09:55 by Estuardo Holbrook MD) Erectile dysfunction Foot pain ZENAIDA (generalized anxiety disorder) Generalized weakness History of pulmonary embolism HTN (hypertension) Insomnia Multiple sclerosis Surgical History Surgical History History of embolectomy Family History Family History Mother Hypertension Brother Hypertension Sister Hypertension Social History Social History Years smoked: 20 Smoking status: Never smoker Tobacco type: cigarettes Alcohol intake: former Drinks per week: 12 Substance use: never Gender identity (if verbalized by the patient): Male Sexual Orientation (if Verbalized by the Patient): Straight or Heterosexual Spiritual care concerns: No Exam Const: General: alert and ill appearing chronically Nutritional Appearance: obese Orientation/consciousness: patient oriented x3 HENMT: Head: normal to inspection Eyes: Conjunctivae: conjunctivae normal Pupils: Equal, round and reactive pupils present EOM: EOMs intact bilaterally Neck: Neck: normal visual inspection Chest: Chest palpation & inspection: normal inspection of the chest Resp: Auscultation: rhonchi right upper and right lower Cardio: Rate: regular rate Rhythm: regular rhythm GI: GI Palp: Yes Soft to palpation, No Tenderness to palpation present (GI) and No Guarding due to palpation present (GI) : General: Yes bladder normal to palpation Urinary Catheter: Urinary Catheter: urine clear Back/Spine/Pelvis: Back: No no CVA tenderness Skin: General skin exam: normal color Rashes: no rashes Neuro: General: patient oriented x3 Extrem: General: normal t
--- NOTE | 2021-12-04 09:55 | ED.GENADULT ---
HPI - General Adult General Chief complaint: Weakness Stated complaint: AMBULANCE Source: patient Mode of arrival: EMS Limitations: no limitations Related Data Home Medications Medication Instructions Recorded Confirmed finasteride 5 mg tablet 5 mg PO DAILY 03/09/19 12/06/21 tamsulosin 0.4 mg capsule (Flomax) 0.4 mg PO DAILY 03/09/19 12/06/21 clonazepam 1 mg tablet 1 mg PO DIRECTED 05/21/19 12/06/21 tizanidine 4 mg capsule 4 mg PO DAILY PRN Muscle Pain 12/28/19 12/06/21 duloxetine 30 mg capsule,delayed See Rx Instructions .Route .COMPLEX 12/06/21 12/06/21 release Allergies Allergy/AdvReac Type Severity Reaction Status Date / Time diclofenac [Cataflam] Allergy Intermediate hypertensio Verified 04/04/21 08:35 n oseltamivir [Tamiflu] Allergy Intermediate Delusions Verified 04/04/21 08:35 PMFSH Past Medical History Medical History (Updated 12/04/21 @ 09:55 by Estuardo Holbrook MD) Erectile dysfunction Foot pain ZENAIDA (generalized anxiety disorder) Generalized weakness History of pulmonary embolism HTN (hypertension) Insomnia Multiple sclerosis Surgical History Surgical History History of embolectomy Family History Family History Mother Hypertension Brother Hypertension Sister Hypertension Social History Social History Smoking packs per day: 0.5 Smoking cigarettes per day: 10.0 Years smoked: 15 Smoking pack-years: 7.50 Smoking status: Former smoker Tobacco type: cigarettes Second hand tobacco smoke exposure: Yes Smoking end date: 10/05/91 Alcohol intake: never Drinks per week: 12 Substance use: never Gender identity (if verbalized by the patient): Male Sexual Orientation (if Verbalized by the Patient): Straight or Heterosexual Spiritual care concerns: No Course Vital Signs Vital signs: Vital Signs Temperature 100.5 F H 12/04/21 07:49 Pulse Rate 122 H 12/04/21 07:49 Respiratory Rate 18 12/04/21 07:49 Blood Pressure 122/88 12/04/21 07:49 Pulse Oximetry 95 12/04/21 07:49 Oxygen Delivery Room Air 12/04/21 07:49 Temperature 97.2 F L 12/06/21 07:52 Pulse Rate 86 12/06/21 08:16 Respiratory Rate 16 12/06/21 04:00 Blood Pressure 141/75 H 12/06/21 07:52 Pulse Oximetry 92 12/06/21 07:52 Oxygen Delivery Nasal Cannula 12/06/21 07:52 Oxygen Flow Rate 2 12/06/21 07:52 Medical Decision Making Vital Signs Vital Signs: Vital Signs Temperature 100.5 F H 12/04/21 07:49 Pulse Rate 122 H 12/04/21 07:49 Respiratory Rate 18 12/04/21 07:49 Blood Pressure 122/88 12/04/21 07:49 Pulse Oximetry 95 12/04/21 07:49 Oxygen Delivery Room Air 12/04/21 07:49 Temperature 97.2 F L 12/06/21 07:52 Pulse Rate 86 12/06/21 08:16 Respiratory Rate 16 12/06/21 04:00 Blood Pressure 141/75 H 12/06/21 07:52 Pulse Oximetry 92 12/06/21 07:52 Oxygen Delivery Nasal Cannula 12/06/21 07:52 Oxygen Flow Rate 2 12/06/21 07:52 Lab Data Result diagrams: 12/06/21 05:02 12/06/21 05:02 Labs: Lab Results 12/04/21 12/04/21 12/04/21 Range/Units 08:24 08:24 08:24 WBC 6.6 (4.8-10.8) K/mm3 RBC 5.27 (4.70-6.10) M/mm3 Hgb 15.1 (12.4-15.3) g/dL Hct 46.4 H (37.0-46.0) % MCV 88.0 (78.0-102.0) fL MCH 28.7 (27.0-31.0) pg MCHC 32.5 (32.0-36.0) g/dL RDW 13.8 (11.6-14.4) % Plt Count 191 (150-420) K/mm3 MPV 9.5 (8.7-11.0) fl Immature Gran % (Auto) 0.5 H (0.0-0.0) % Neut % (Auto) 76.4 H (50.0-70.0) % Lymph % (Auto) 13.0 L (18.0-42.0) % [place] % (Auto) 9.1 (2.0-11.0) % Eos % (Auto) 0.5 L (1.0-6.0) % Baso % (Auto) 0.5 (0.0-1.0) % Lymph # (Auto) 0.86 L (1.10-4.50) K/mm3 [place] # (Auto) 0.60 (0.10-0.90) K/mm3 Eos # (Auto) 0.03 (0.02-0.50) K/mm3
--- NOTE | 2021-12-04 10:05 | PC.NURSE ---
Patient arrived to floor at 1005 from ER on stretcher, accompanied by ER staff and patient's . 4 assist and maxi slide used to transfer patient from stretcher to bed. Patient not in possession of valuable items at this time. Medications sent home with . 16 fr drew catheter inserted, with stabilization device. Patient tolerated well.
[2021-12-04 10:06] LABS: Influenza Control Valid (Valid)
[2021-12-04] MEDS: FLUTICASONE PROPIONATE 0.05% NA SPR 16 GM BTL (*BKC) 1 SPRAY NASAL (10:36)
[2021-12-04] MEDS: LIDOCAINE 5% PATCH 2 PATCH TRANSDERM (10:37)
[2021-12-04] MEDS: amLODIPine BESYLATE 5 MG TABLET 10 MG PO (10:40)
[2021-12-04] MEDS: DULoxetine HCL 30 MG CAPSULE.DR PO (10:40)
[2021-12-04] MEDS: TAMSULOSIN HCL 0.4 MG CAPSULE PO (10:41)
[2021-12-04] MEDS: guaiFENesin 12 HR 600 MG TABCR PO ×2 (10:41→21:06)
[2021-12-04] MEDS: BENZONATATE 100 MG CAPSULE 200 MG PO ×3 (10:42→16:48)
[2021-12-04] MEDS: ATORVASTATIN 10 MG TABLET 20 MG PO (10:42)
[2021-12-04] MEDS: METOPROLOL TARTRATE 25 MG TABLET PO ×2 (10:43→21:06)
[2021-12-04] MEDS: lisinopriL 20 MG TABLET 40 MG PO (10:43)
[2021-12-04] MEDS: FINASTERIDE 5 MG TABLET PO (10:43)
[2021-12-04] MEDS: allopurinoL 300 MG TABLET PO (10:44)
[2021-12-04] MEDS: SODIUM CHLORIDE 0.9% IV 1,000 ML 100 ML IV CONT ×2 (10:52→22:12)
[2021-12-04] MEDS: APIXABAN 2.5 MG TABLET 5 MG PO ×2 (11:52→21:05)
[2021-12-04] MEDS: DOCUSATE SODIUM 100 MG CAPSULE PO (16:48)
[2021-12-04] MEDS: ACETAMINOPHEN 325 MG TABLET 650 MG PO (21:04)
[2021-12-04] MEDS: traZODone HCL 50 MG TABLET PO (21:09)
[2021-12-05] VITALS (10 sets, daily range): BP systolic 101–148; BP diastolic 64–82; PULSE 72–99; RESP 14–18; TEMP 37.1–37.6; O2SAT 85–94
[2021-12-05 05:26] LABS: Hematocrit 40.8 % (37.0-46.0); Hemoglobin 13.4 g/dL (12.4-15.3); Mean Corpuscular HGB Conc 32.8 g/dL (32.0-36.0); Mean Corpuscular Volume 88.3 fL (78.0-102.0); Mean Platelet Volume 9.9 fl (8.7-11.0); Platelet Count Result 154 K/mm3 (150-420); Red Blood Count 4.62 M/mm3 (4.70-6.10); Red Cell Distribution Width 14.1 % (11.6-14.4); White Blood Count 5.5 K/mm3 (4.8-10.8)
[2021-12-05 05:42] LABS: Alanine Aminotransferase 57 U/L (16-63); Albumin Level 2.8 g/dL (3.4-5.0); Alkaline Phosphatase 45 U/L (46-116); Anion Gap 9 mmol/L (8-16); Aspartate Amino Transferase 32 U/L (15-37); Bilirubin,Total 0.3 mg/dL (0.00-1.00); Blood Urea Nitrogen 11 mg/dL (7-18); Calcium 8.1 mg/dL (8.5-10.1); Carbon Dioxide 26 mmol/L (21-32); Chloride 107 mmol/L (98-108); Estimated CRCL calculation 96 ml/min; Estimated Glomerular Filt Rate > 60; Glucose 100 mg/dL (70-99); Magnesium 1.8 mg/dL (1.8-2.4); Osmolality Calculated 293 mOsm/kg (285-295); Potassium 3.7 mmol/L (3.5-5.1); Sodium 142 mmol/L (136-145); Total Protein 6.4 g/dL (6.4-8.2)
[2021-12-05] MEDS: LIDOCAINE 5% PATCH 2 PATCH TRANSDERM (08:16)
[2021-12-05] MEDS: BENZONATATE 100 MG CAPSULE 200 MG PO ×3 (08:17→16:34)
[2021-12-05] MEDS: FLUTICASONE PROPIONATE 0.05% NA SPR 16 GM BTL (*BKC) 1 SPRAY NASAL (08:17)
[2021-12-05] MEDS: DULoxetine HCL 30 MG CAPSULE.DR PO (08:18)
[2021-12-05] MEDS: DOCUSATE SODIUM 100 MG CAPSULE PO ×2 (08:18→16:34)
[2021-12-05] MEDS: guaiFENesin 12 HR 600 MG TABCR PO ×2 (08:18→21:30)
[2021-12-05] MEDS: allopurinoL 300 MG TABLET PO (08:19)
[2021-12-05] MEDS: amLODIPine BESYLATE 5 MG TABLET 10 MG PO (08:19)
[2021-12-05] MEDS: APIXABAN 2.5 MG TABLET 5 MG PO ×2 (08:19→21:26)
[2021-12-05] MEDS: ATORVASTATIN 10 MG TABLET 20 MG PO (08:20)
[2021-12-05] MEDS: lisinopriL 20 MG TABLET 40 MG PO (08:21)
[2021-12-05] MEDS: TAMSULOSIN HCL 0.4 MG CAPSULE PO (08:21)
[2021-12-05] MEDS: METOPROLOL TARTRATE 25 MG TABLET PO ×2 (08:22→21:26)
[2021-12-05] MEDS: FINASTERIDE 5 MG TABLET PO (08:22)
--- NOTE | 2021-12-05 09:53 | PM.IMHP ---
H&P: HPI History of Present Illness Date/Time: 12/05/21 09:53 Chief Complaint: This is a 71-year-old male who presented to our emergency department on 12/02/2021 for abdominal pain believed to be due to urinary retention at that time his Bumex was increased to 0.4 twice daily and instructions to follow-up with urology. He 12/04/2021 for flulike symptoms. Patient has a past medical history of weakness, pulmonary embolism, hypertension, insomnia, MS and anxiety disorder. Patient also complained of a nonproductive cough fever generalized weakness and nausea. On admission patient's temperature was 100.1. Today vitals 99.5, 95, 18, 89% on room air, 148/82, patient will need a home O2 eval before discharge. Did receive report from nursing staff the patient desatted to 86% while laying down. WBC 6.6, hemoglobin 15.1, hematocrit 46.4, platelets 191, sodium 138, potassium 3.7, BUN 10, creatinine 1.01, lactic acid 1.3, AST 37, ALT 72, troponin 18.0, BUN 91, UA positive ketones influenza and COVID-negative chest x-ray unremarkable EKG sinus tach with a heart rate of 120. Patient was evaluated by physical therapy it was recommended the patient transition into our swing bed due to worsening weakness. Patient continues to have a nonproductive cough. He has no other complaints at this time. The patient denies CP, palpitation, extremity numbness, lightheadedness, dizziness, constipation, diarrhea, chills, or fever. Review of Systems Review of Systems: A 14 organ system Review of Systems was performed and pertinent positives included in the HPI, otherwise remaining ROS is negative. [facility] Past Medical History Medical History (Updated 12/04/21 @ 09:55 by Estuardo Holbrook MD) Erectile dysfunction Foot pain ZENAIDA (generalized anxiety disorder) Generalized weakness History of pulmonary embolism HTN (hypertension) Insomnia Multiple sclerosis Surgical History Surgical History History of embolectomy Family History Family History Mother Hypertension Brother Hypertension Sister Hypertension Social History Social History Smoking packs per day: 1 Smoking cigarettes per day: 20.0 Years smoked: 40 Smoking pack-years: 40.00 Smoking status: Former smoker Tobacco type: cigarettes Second hand tobacco smoke exposure: Yes Smoking end date: 10/05/91 Alcohol intake: never Drinks per week: 12 Substance use: never Gender identity (if verbalized by the patient): Male Sexual Orientation (if Verbalized by the Patient): Straight or Heterosexual Spiritual care concerns: No Meds Home Medications and Allergies Home Medications Medication Instructions Recorded Confirmed Type finasteride 5 mg tablet 5 mg PO DAILY 03/09/19 12/04/21 History tamsulosin 0.4 mg capsule (Flomax) 0.4 mg PO DAILY 03/09/19 12/04/21 History clonazepam 1 mg tablet 1 mg PO DIRECTED 05/21/19 12/04/21 History tizanidine 4 mg capsule 4 mg PO DAILY PRN Muscle Pain 12/28/19 12/04/21 History fluticasone propionate 50 See Rx Instructions .Route 12/07/20 12/04/21 Rx mcg/actuation nasal .COMPLEX #9.9 mL spray,suspension amlodipine 10 mg tablet See Rx Instructions .Route 05/08/21 12/04/21 Rx .COMPLEX #90 tabs duloxetine 30 mg capsule,delayed See Rx Instructions .Route 05/09/21 12/04/21 Rx release .COMPLEX #180 caps apixaban 5 mg tablet (Eliquis) 5 mg PO BID #180 tabs 05/30/21 12/04/21 Rx lisinopril 40 mg tablet See Rx Instructions .Route 05/31/21 12/04/21 Rx .COMPLEX #90 tabs atorvastatin 20 mg tablet 20 mg PO DAILY #90 tabs 06/19/21 12/04/21 Rx allopurinol 300 mg tablet See Rx Instructions .Route 07/17/21 12/04/21 Rx .COMPLEX #90 tabs metoprolol tartrate 25 mg tablet See Rx Instructions .Route 08/03/21 12/04/21 Rx .COMPLEX #180 tabs lidocaine 5 % topical patch See Rx Instructions
--- NOTE | 2021-12-05 11:21 | PM.DS ---
DS: Admitting Diagnosis Discharge Date 12/05/2021 Admitting Diagnosis Viral illness and tachycardia DS: Discharge Diagnosis Discharge Diagnosis (1) Multiple sclerosis: Code(s): G35 - Multiple sclerosis Status: Acute (2) Fever: Code(s): R50.9 - Fever, unspecified Status: Acute Assessment and Plan: On admission patient's temperature 100.1 currently 99.5 Believed to be viral WBCs lactic acid chest x-ray all within normal limits and unremarkable COVID and influenza negative Will treat symptoms (3) Hypertension: Code(s): I10 - Essential (primary) hypertension Status: Acute Assessment and Plan: Stable Continue home medication Vital signs as ordered Will adjust medication as needed (4) ZENAIDA (generalized anxiety disorder): Code(s): F41.1 - Generalized anxiety disorder Status: Acute Assessment and Plan: Ativan ordered (5) Weakness: Code(s): R53.1 - Weakness Status: Acute Assessment and Plan: ? Plans to transition to swing bed Exhibit tolerance during physical activity as evidenced by a normal fluctuation of vital signs during physical activity. ? Patient will be ability to perform required activities of daily living. ? Provide appropriate nutrition for healing and strength. ? Use appropriate to prevent falls. ? Continue physical therapy/occupational therapy. DS: Summary Hospital Course Reason for hospitalization: Tachycardia and febrile Hospital Course: This is a 71-year-old male who presented to our emergency department on 12/02/2021 for abdominal pain believed to be due to urinary retention at that time his Bumex was increased to 0.4 twice daily and instructions to follow-up with urology.? He 12/04/2021 for flulike symptoms.? Patient has a past medical history of weakness, pulmonary embolism, hypertension, insomnia, MS and anxiety disorder.? Patient also complained of a nonproductive cough fever generalized weakness and nausea.? On admission patient's temperature was 100.1.? Today vitals 99.5, 95, 18, 89% on room air, 148/82, patient will need a home O2 eval before discharge.? Did receive report from nursing staff the patient desatted to 86% while laying down.? WBC 6.6, hemoglobin 15.1, hematocrit 46.4, platelets 191, sodium 138, potassium 3.7, BUN 10, creatinine 1.01, lactic acid 1.3, AST 37, ALT 72, troponin 18.0, BUN 91, UA positive ketones influenza and COVID-negative chest x-ray unremarkable EKG sinus tach with a heart rate of 120.? Patient was evaluated by physical therapy it was recommended the patient transition into our swing bed due to worsening weakness.? Patient continues to have a nonproductive cough.? He has no other complaints at this time.? The patient denies CP, palpitation, extremity numbness, lightheadedness, dizziness, constipation, diarrhea, chills, or fever. Patient with transition to swing bed Time Spent with Patient Time attestation: Total time spent providing and/or coordinating discharge services: Exam Narrative: GENERAL: Obese this is a well-nourished, well-developed patient, in no apparent distress. HEAD: normocephalic, atraumatic. EYES: PERRL. Sclera clear/white. Vision is grossly intact. EARS: External ears normal, auditory canals clear and without drainage, TMs normal without perforation. Hearing grossly intact. NOSE: External nose normal with no obvious nasal discharge, nares without redness, no rhinorrhea. THROAT: Mucous membranes moist, posterior pharynx clear. NECK: Neck supple, non-tender without lymphadenopathy, masses or thyromegaly. CARDIOVASCULAR: Regular rate and rhythm without murmurs, gallops, or rubs. RESPIRATORY: Clear to auscultation. Breath sounds equal bilaterally. No wheezes, rales, or rhonchi. GASTROINTESTINAL: Abdomen soft, non-tender, nondistended. Bowel sounds are active. No hepato-splenomegaly, or palpable masses. No guarding. SKIN: warm, intact with no suspicious lesions or rash, good t
--- NOTE | 2021-12-05 12:40 | PC.NURSE ---
Staff x 3 attempted to use stanislaw steady to transfer patient from chair to BSC and were unsuccessful. Patient was unable to pull himself up with assist into the standing position. Staff used stanislaw steady plus to transfer patient with some difficulty d/t patient not locking his arms on arm rests of lift.
[2021-12-05] MEDS: traZODone HCL 50 MG TABLET PO (21:31)
[2021-12-05] MEDS: traMADol HCL (*CRX) 25 MG TABLET PO (21:43)
[2021-12-06] VITALS: BP 143/82; PULSE 82; PULSE 93; RESP 16; TEMP 37.1; O2SAT 82
[2021-12-06 04:00] VITALS: BP 135/75; PULSE 80; PULSE 82; RESP 16; TEMP 37; O2SAT 92
[2021-12-06 05:28] LABS: Hemoglobin 12.9 g/dL (12.4-15.3); Mean Corpuscular HGB Conc 32.3 g/dL (32.0-36.0); Mean Corpuscular Hemoglobin 28.9 pg (27.0-31.0); Mean Corpuscular Volume 89.5 fL (78.0-102.0); Mean Platelet Volume 10.2 fl (8.7-11.0); Platelet Count Result 157 K/mm3 (150-420); Red Blood Count 4.47 M/mm3 (4.70-6.10); Red Cell Distribution Width 14.1 % (11.6-14.4); White Blood Count 5.9 K/mm3 (4.8-10.8)
[2021-12-06 05:38] LABS: Anion Gap 7 mmol/L (8-16); Blood Urea Nitrogen 12 mg/dL (7-18); Calcium 8.2 mg/dL (8.5-10.1); Carbon Dioxide 28 mmol/L (21-32); Chloride 107 mmol/L (98-108); Estimated CRCL calculation 104 ml/min; Estimated Glomerular Filt Rate > 60; Glucose 107 mg/dL (70-99); Osmolality Calculated 293 mOsm/kg (285-295); Potassium 3.7 mmol/L (3.5-5.1); Sodium 142 mmol/L (136-145)
[2021-12-06 07:49] VITALS: PULSE 86
[2021-12-06 07:52] VITALS: BP 141/75; PULSE 89; TEMP 36.2; O2SAT 92
[2021-12-06] MEDS: FLUTICASONE PROPIONATE 0.05% NA SPR 16 GM BTL (*BKC) 1 SPRAY NASAL (08:14)
[2021-12-06] MEDS: BENZONATATE 100 MG CAPSULE 200 MG PO (08:15)
[2021-12-06 08:16] VITALS: PULSE 86
[2021-12-06] MEDS: TAMSULOSIN HCL 0.4 MG CAPSULE PO (08:16)
[2021-12-06] MEDS: guaiFENesin 12 HR 600 MG TABCR PO (08:16)
[2021-12-06] MEDS: allopurinoL 300 MG TABLET PO (08:16)
[2021-12-06] MEDS: lisinopriL 20 MG TABLET 40 MG PO (08:16)
[2021-12-06] MEDS: METOPROLOL TARTRATE 25 MG TABLET PO (08:16)
[2021-12-06] MEDS: FINASTERIDE 5 MG TABLET PO (08:16)
[2021-12-06] MEDS: ATORVASTATIN 10 MG TABLET 20 MG PO (08:16)
[2021-12-06] MEDS: amLODIPine BESYLATE 5 MG TABLET 10 MG PO (08:17)
[2021-12-06] MEDS: APIXABAN 2.5 MG TABLET 5 MG PO (08:17)
[2021-12-06] MEDS: DOCUSATE SODIUM 100 MG CAPSULE PO (08:17)
[2021-12-06] MEDS: DULoxetine HCL 30 MG CAPSULE.DR PO (08:17)
--- NOTE | 2021-12-06 09:09 | PC.NURSE ---
Patient being changed to skilled swing bed program. remains in same room and bed
--- NOTE | 2021-12-06 09:10 | PM.DS ---
DS: Admitting Diagnosis Discharge Date 12/06/2021 Admitting Diagnosis afib weakness DS: Discharge Diagnosis Discharge Diagnosis (1) Multiple sclerosis: Code(s): G35 - Multiple sclerosis Status: Acute (2) Fever: Code(s): R50.9 - Fever, unspecified Status: Acute Assessment and Plan: On admission patient's temperature 100.1 currently 99.5 Believed to be viral WBCs lactic acid chest x-ray all within normal limits and unremarkable COVID and influenza negative Will treat symptoms (3) Hypertension: Code(s): I10 - Essential (primary) hypertension Status: Acute Assessment and Plan: Stable Continue home medication Vital signs as ordered Will adjust medication as needed (4) ZENAIDA (generalized anxiety disorder): Code(s): F41.1 - Generalized anxiety disorder Status: Acute Assessment and Plan: Ativan ordered (5) Weakness: Code(s): R53.1 - Weakness Status: Acute Assessment and Plan: ? Plans to transition to swing bed Exhibit tolerance during physical activity as evidenced by a normal fluctuation of vital signs during physical activity. ? Patient will be ability to perform required activities of daily living. ? Provide appropriate nutrition for healing and strength. ? Use appropriate to prevent falls. ? Continue physical therapy/occupational therapy. DS: Summary Hospital Course Reason for hospitalization: Tachycardia and febrile Hospital Course: Patient was switched today and nothing has changed from yesterday Per discharge from yesterdayate/Time: 12/05/21? 09:53Chief Complaint:This is a 71-year-old male who presented to our emergency department on 12/02/2021 for abdominal pain believed to be due to urinary retention at that time his Bumex was increased to 0.4 twice daily and instructions to follow-up with urology.? He 12/04/2021 for flulike symptoms.? Patient has a past medical history of weakness, pulmonary embolism, hypertension, insomnia, MS and anxiety disorder.? Patient also complained of a nonproductive cough fever generalized weakness and nausea.? On admission patient's temperature was 100.1.? Today vitals 99.5, 95, 18, 89% on room air, 148/82, patient will need a home O2 eval before discharge.? Did receive report from nursing staff the patient desatted to 86% while laying down.? WBC 6.6, hemoglobin 15.1, hematocrit 46.4, platelets 191, sodium 138, potassium 3.7, BUN 10, creatinine 1.01, lactic acid 1.3, AST 37, ALT 72, troponin 18.0, BUN 91, UA positive ketones influenza and COVID-negative chest x-ray unremarkable EKG sinus tach with a heart rate of 120.? Patient was evaluated by physical therapy it was recommended the patient transition into our swing bed due to worsening weakness.? Patient continues to have a nonproductive cough.? He has no other complaints at this time.? The patient denies CP, palpitation, extremity numbness, lightheadedness, dizziness, constipation, diarrhea, chills, or fever. Time Spent with Patient Time attestation: Total time spent providing and/or coordinating discharge services: Exam Narrative: GENERAL: Obese this is a well-nourished, well-developed patient, in no apparent distress. HEAD: normocephalic, atraumatic. EYES: PERRL. Sclera clear/white. Vision is grossly intact. EARS: External ears normal, auditory canals clear and without drainage, TMs normal without perforation. Hearing grossly intact. NOSE: External nose normal with no obvious nasal discharge, nares without redness, no rhinorrhea. THROAT: Mucous membranes moist, posterior pharynx clear. NECK: Neck supple, non-tender without lymphadenopathy, masses or thyromegaly. CARDIOVASCULAR: Regular rate and rhythm without murmurs, gallops, or rubs. RESPIRATORY: Clear to auscultation. Breath sounds equal bilaterally. No wheezes, rales, or rhonchi. GASTROINTESTINAL: Abdomen soft, non-tender, nondistended. Bowel sounds are active. No hepato-splenomegaly, or palpable m
--- NOTE | 2021-12-07 09:28 | PM.EVENT ---
Event Note Event Note Event Note: Patient daughter tested positive for Covid his week and he was wandering if he should be tested patient was tested on 12/04 and was negative we will wait a few more days and retest then.
== END 2021-12-06 09:00 | disposition swing bed (61) ==
LOC: CHSED 07:33 → CHS2ND 09:30
PROVIDERS: Nurse Practitioner; Admitting Provider Internal Medicine; Emergency Provider Emergency Medicine; PCP Nurse Practitioner Family; Visit Provider Internal Medicine
DX: R50.9 Fever, unspecified (principal); E86.0 Dehydration; I10 Essential (primary) hypertension; G35 Multiple sclerosis; R53.1 Weakness; F41.1 Generalized anxiety disorder; Z20.822 Contact with and (suspected) exposure to COVID-19; Z86.711 Personal history of pulmonary embolism; Z87.891 Personal history of nicotine dependence
CPT/HCPCS: 51701; 36415; 71045; 80048; 80053; 81001; 83605; 83690; 83735; 83880; 84484; 85025; 85027; 85610; 85730; 87040; 87426; 87804; 93005; 96361; 96365; 96366; 96367; 97162; 97165; 97530; 97535; 99285; A9270; C9803; G0378; J0456; J0696; J7030; J7120

== ENCOUNTER 2021-12-06 09:01 | Inpatient (IN) | payer MEDICARE, SELFPAY ==
[2021-12-06 10:01] VITALS: BMI 42.0
--- NOTE | 2021-12-06 10:07 | PM.DS ---
DS: Admitting Diagnosis Discharge Date 12/06/2021 Admitting Diagnosis Patient was switched today and nothing has changed from yesterday Per discharge from yesterdayate/Time: 12/05/21? 09:53Chief Complaint:This is a 71-year-old male who presented to our emergency department on 12/02/2021 for abdominal pain believed to be due to urinary retention at that time his Bumex was increased to 0.4 twice daily and instructions to follow-up with urology.? He 12/04/2021 for flulike symptoms.? Patient has a past medical history of weakness, pulmonary embolism, hypertension, insomnia, MS and anxiety disorder.? Patient also complained of a nonproductive cough fever generalized weakness and nausea.? On admission patient's temperature was 100.1.? Today vitals 99.5, 95, 18, 89% on room air, 148/82, patient will need a home O2 eval before discharge.? Did receive report from nursing staff the patient desatted to 86% while laying down.? WBC 6.6, hemoglobin 15.1, hematocrit 46.4, platelets 191, sodium 138, potassium 3.7, BUN 10, creatinine 1.01, lactic acid 1.3, AST 37, ALT 72, troponin 18.0, BUN 91, UA positive ketones influenza and COVID-negative chest x-ray unremarkable EKG sinus tach with a heart rate of 120.? Patient was evaluated by physical therapy it was recommended the patient transition into our swing bed due to worsening weakness.? Patient continues to have a nonproductive cough.? He has no other complaints at this time.? The patient denies CP, palpitation, extremity numbness, lightheadedness, dizziness, constipation, diarrhea, chills, or fever. DS: Discharge Diagnosis Discharge Diagnosis (1) Multiple sclerosis: Code(s): G35 - Multiple sclerosis Status: Acute Assessment and Plan: continue on home medication PT/OT treat symptoms accordinglying (2) Fever: Code(s): R50.9 - Fever, unspecified Status: Acute Assessment and Plan: resolved (3) Hypertension: Code(s): I10 - Essential (primary) hypertension Status: Acute Assessment and Plan: continue to monitor blood pressre continue home medication Adjust accordingly (4) UTI (urinary tract infection): Code(s): N39.0 - Urinary tract infection, site not specified Status: Acute Assessment and Plan: Treat with Antibiotic drink plenty of fluids monitor for pending culture (5) Weakness: Code(s): R53.1 - Weakness Status: Acute Assessment and Plan: PT/OT Evaluate and treat DS: Summary Hospital Course Reason for hospitalization: Weakness, dehydration Hospital Course: No changes patient did not transition to swing until this dvzjelw99/02/22? 09:53Chief Complaint: This is a 71-year-old male who presented to our emergency department on 12/02/2021 for abdominal pain believed to be due to urinary retention at that time his Bumex was increased to 0.4 twice daily and instructions to follow-up with urology.? He 12/04/2021 for flulike symptoms.? Patient has a past medical history of weakness, pulmonary embolism, hypertension, insomnia, MS and anxiety disorder.? Patient also complained of a nonproductive cough fever generalized weakness and nausea.? On admission patient's temperature was 100.1.? Today vitals 99.5, 95, 18, 89% on room air, 148/82, patient will need a home O2 eval before discharge.? Did receive report from nursing staff the patient desatted to 86% while laying down.? WBC 6.6, hemoglobin 15.1, hematocrit 46.4, platelets 191, sodium 138, potassium 3.7, BUN 10, creatinine 1.01, lactic acid 1.3, AST 37, ALT 72, troponin 18.0, BUN 91, UA positive ketones influenza and COVID-negative chest x-ray unremarkable EKG sinus tach with a heart rate of 120.? Patient was evaluated by physical therapy it was recommended the patient transition into our swing bed due to worsening weakness.? Patient continues to have a nonproductive cough.? He has no other complaints at this time.? The patient denies CP, palpitation, extremity numbness
--- NOTE | 2021-12-06 10:15 | PM.IMHP ---
H&P: HPI History of Present Illness Date/Time: 12/06/21 10:15 Chief Complaint: Weakness and REhab Narrative: Patient insurance appoval did not come until this morning and HP was completed yesterday nothing has changed : This is a 71-year-old male who presented to our emergency department on 12/02/2021 for abdominal pain believed to be due to urinary retention at that time his Bumex was increased to 0.4 twice daily and instructions to follow-up with urology.? He 12/04/2021 for flulike symptoms.? Patient has a past medical history of weakness, pulmonary embolism, hypertension, insomnia, MS and anxiety disorder.? Patient also complained of a nonproductive cough fever generalized weakness and nausea.? On admission patient's temperature was 100.1.? Today vitals 99.5, 95, 18, 89% on room air, 148/82, patient will need a home O2 eval before discharge.? Did receive report from nursing staff the patient desatted to 86% while laying down.? WBC 6.6, hemoglobin 15.1, hematocrit 46.4, platelets 191, sodium 138, potassium 3.7, BUN 10, creatinine 1.01, lactic acid 1.3, AST 37, ALT 72, troponin 18.0, BUN 91, UA positive ketones influenza and COVID-negative chest x-ray unremarkable EKG sinus tach with a heart rate of 120.? Patient was evaluated by physical therapy it was recommended the patient transition into our swing bed due to worsening weakness.? Patient continues to have a nonproductive cough.? He has no other complaints at this time.? The patient denies CP, palpitation, extremity numbness, lightheadedness, dizziness, constipation, diarrhea, chills, or fever. Review of Systems Review of Systems: Weakness, All systems reviewed & are unremarkable except as noted in HPI and below PMFSH Past Medical History Medical History (Updated 12/04/21 @ 09:55 by Estuardo Holbrook MD) Erectile dysfunction Foot pain ZENAIDA (generalized anxiety disorder) Generalized weakness History of pulmonary embolism HTN (hypertension) Insomnia Multiple sclerosis Surgical History Surgical History History of embolectomy Family History Family History Mother Hypertension Brother Hypertension Sister Hypertension Social History Social History Smoking packs per day: 0.5 Smoking cigarettes per day: 10.0 Years smoked: 15 Smoking pack-years: 7.50 Smoking status: Former smoker Tobacco type: cigarettes Second hand tobacco smoke exposure: Yes Smoking end date: 10/05/91 Alcohol intake: never Drinks per week: 12 Substance use: never Gender identity (if verbalized by the patient): Male Sexual Orientation (if Verbalized by the Patient): Straight or Heterosexual Spiritual care concerns: No Meds Home Medications and Allergies Home Medications Medication Instructions Recorded Confirmed Type finasteride 5 mg tablet 5 mg PO DAILY 03/09/19 12/06/21 History tamsulosin 0.4 mg capsule (Flomax) 0.4 mg PO DAILY 03/09/19 12/06/21 History clonazepam 1 mg tablet 1 mg PO DIRECTED 05/21/19 12/06/21 History tizanidine 4 mg capsule 4 mg PO DAILY PRN Muscle Pain 12/28/19 12/06/21 History fluticasone propionate 50 See Rx Instructions .Route 12/07/20 12/06/21 Rx mcg/actuation nasal .COMPLEX #9.9 mL spray,suspension amlodipine 10 mg tablet See Rx Instructions .Route 05/08/21 12/06/21 Rx .COMPLEX #90 tabs apixaban 5 mg tablet (Eliquis) 5 mg PO BID #180 tabs 05/30/21 12/06/21 Rx lisinopril 40 mg tablet See Rx Instructions .Route 05/31/21 12/06/21 Rx .COMPLEX #90 tabs atorvastatin 20 mg tablet 20 mg PO DAILY #90 tabs 06/19/21 12/06/21 Rx allopurinol 300 mg tablet See Rx Instructions .Route 07/17/21 12/06/21 Rx .COMPLEX #90 tabs metoprolol tartrate 25 mg tablet See Rx Instructions .Route 08/03/21 12/06/21 Rx .COMPLEX #180 tabs lidocaine 5 % topical patch See Rx Instructions .Route
[2021-12-06 10:18] VITALS: BP 138/79; PULSE 85; RESP 16; TEMP 36.3; O2SAT 93
[2021-12-06] MEDS: AZITHROMYCIN 250 MG TABLET 500 MG PO (13:10)
[2021-12-06 15:57] VITALS: BP 129/76; PULSE 85; RESP 16; TEMP 36.6; O2SAT 93
[2021-12-06] MEDS: APIXABAN 2.5 MG TABLET 5 MG BY MOUTH (20:21)
[2021-12-06 20:22] VITALS: PULSE 85
[2021-12-06] MEDS: METOPROLOL TARTRATE 25 MG TABLET BY MOUTH (20:22)
[2021-12-06 23:48] VITALS: BP 181/91; PULSE 85; RESP 20; TEMP 35.5; O2SAT 91
[2021-12-07 07:50] VITALS: BP 134/85; PULSE 84; RESP 18; TEMP 36.5; O2SAT 93
[2021-12-07] MEDS: LIDOCAINE 5% PATCH 2 PATCH TOPICAL (09:16)
[2021-12-07] MEDS: ATORVASTATIN 10 MG TABLET 20 MG PO (09:16)
[2021-12-07] MEDS: TAMSULOSIN HCL 0.4 MG CAPSULE PO (09:16)
[2021-12-07] MEDS: FLUTICASONE PROPIONATE 0.05% NA SPR 16 GM BTL (*BKC) 1 SPRAY NASAL (09:16)
[2021-12-07] MEDS: APIXABAN 2.5 MG TABLET 5 MG BY MOUTH ×2 (09:16→20:39)
[2021-12-07 09:17] VITALS: PULSE 84
[2021-12-07] MEDS: METOPROLOL TARTRATE 25 MG TABLET BY MOUTH ×2 (09:17→20:38)
[2021-12-07] MEDS: amLODIPine BESYLATE 5 MG TABLET PO (09:17)
[2021-12-07] MEDS: lisinopriL 20 MG TABLET 40 MG BY MOUTH (09:17)
[2021-12-07] MEDS: FINASTERIDE 5 MG TABLET PO (09:17)
[2021-12-07] MEDS: AZITHROMYCIN 250 MG TABLET 500 MG PO (09:17)
[2021-12-07] MEDS: allopurinoL 300 MG TABLET PO (09:18)
[2021-12-07] MEDS: DULoxetine HCL 30 MG CAPSULE.DR PO (09:18)
[2021-12-07 16:45] VITALS: BP 130/76; PULSE 94; RESP 18; TEMP 35.9; O2SAT 100
[2021-12-07 20:38] VITALS: PULSE 78
[2021-12-07 23:02] VITALS: BP 147/90; PULSE 78; RESP 21; TEMP 36.1; O2SAT 92
[2021-12-08 07:50] VITALS: BP 136/82; PULSE 97; RESP 18; TEMP 36.1; O2SAT 93
[2021-12-08] MEDS: LIDOCAINE 5% PATCH 2 PATCH TOPICAL (09:00)
[2021-12-08 09:01] VITALS: PULSE 97
[2021-12-08] MEDS: lisinopriL 20 MG TABLET 40 MG BY MOUTH (09:01)
[2021-12-08] MEDS: DULoxetine HCL 30 MG CAPSULE.DR PO (09:01)
[2021-12-08] MEDS: METOPROLOL TARTRATE 25 MG TABLET BY MOUTH ×2 (09:01→20:30)
[2021-12-08] MEDS: FLUTICASONE PROPIONATE 0.05% NA SPR 16 GM BTL (*BKC) 1 SPRAY NASAL (09:01)
[2021-12-08] MEDS: APIXABAN 2.5 MG TABLET 5 MG BY MOUTH ×2 (09:02→20:30)
[2021-12-08] MEDS: allopurinoL 300 MG TABLET PO (09:02)
[2021-12-08] MEDS: FINASTERIDE 5 MG TABLET PO (09:02)
[2021-12-08] MEDS: AZITHROMYCIN 250 MG TABLET 500 MG PO (09:02)
[2021-12-08] MEDS: amLODIPine BESYLATE 5 MG TABLET PO (09:03)
[2021-12-08] MEDS: TAMSULOSIN HCL 0.4 MG CAPSULE PO (09:03)
[2021-12-08] MEDS: ATORVASTATIN 10 MG TABLET 20 MG PO (09:03)
[2021-12-08 16:35] VITALS: BP 111/70; PULSE 83; RESP 18; TEMP 35.9; O2SAT 91
[2021-12-08 20:30] VITALS: PULSE 77
[2021-12-08 23:36] VITALS: BP 100/68; PULSE 77; RESP 18; TEMP 36.1; O2SAT 94
[2021-12-09 08:00] VITALS: BP 154/89; PULSE 77; RESP 18; TEMP 35.6; O2SAT 90
[2021-12-09] MEDS: FLUTICASONE PROPIONATE 0.05% NA SPR 16 GM BTL (*BKC) 1 SPRAY NASAL (08:16)
[2021-12-09] MEDS: LIDOCAINE 5% PATCH 2 PATCH TOPICAL (08:17)
[2021-12-09] MEDS: ATORVASTATIN 10 MG TABLET 20 MG PO (08:17)
[2021-12-09] MEDS: DULoxetine HCL 30 MG CAPSULE.DR PO (08:17)
[2021-12-09] MEDS: AZITHROMYCIN 250 MG TABLET 500 MG PO (08:18)
[2021-12-09] MEDS: APIXABAN 2.5 MG TABLET 5 MG BY MOUTH ×2 (08:18→20:31)
[2021-12-09] MEDS: FINASTERIDE 5 MG TABLET PO (08:19)
[2021-12-09] MEDS: lisinopriL 20 MG TABLET 40 MG BY MOUTH (08:19)
[2021-12-09] MEDS: TAMSULOSIN HCL 0.4 MG CAPSULE PO (08:19)
[2021-12-09] MEDS: allopurinoL 300 MG TABLET PO (08:19)
[2021-12-09 08:20] VITALS: PULSE 70
[2021-12-09] MEDS: amLODIPine BESYLATE 5 MG TABLET PO (08:20)
[2021-12-09] MEDS: METOPROLOL TARTRATE 25 MG TABLET BY MOUTH ×2 (08:20→20:30)
[2021-12-09 16:00] VITALS: BP 132/77; PULSE 77; RESP 16; TEMP 36.3; O2SAT 93
[2021-12-09 20:30] VITALS: PULSE 69
--- NOTE | 2021-12-09 22:41 | PC.NURSE ---
Lilo is unable to document progress on care goals directly. Therefore charge nurse charted, with Lilo providing the information regarding each patient.
[2021-12-10] VITALS: BP 143/68; PULSE 69; RESP 20; TEMP 35.5; O2SAT 93
[2021-12-10 08:00] VITALS: BP 196/96; PULSE 85; RESP 16; TEMP 36.2; O2SAT 92
[2021-12-10] MEDS: FLUTICASONE PROPIONATE 0.05% NA SPR 16 GM BTL (*BKC) 1 SPRAY NASAL (08:16)
[2021-12-10] MEDS: LIDOCAINE 5% PATCH 2 PATCH TOPICAL (08:16)
[2021-12-10 08:17] VITALS: PULSE 67
[2021-12-10] MEDS: METOPROLOL TARTRATE 25 MG TABLET BY MOUTH ×2 (08:17→20:56)
[2021-12-10] MEDS: DULoxetine HCL 30 MG CAPSULE.DR PO (08:17)
[2021-12-10] MEDS: ATORVASTATIN 10 MG TABLET 20 MG PO (08:17)
[2021-12-10] MEDS: lisinopriL 20 MG TABLET 40 MG BY MOUTH (08:17)
[2021-12-10] MEDS: amLODIPine BESYLATE 5 MG TABLET PO (08:18)
[2021-12-10] MEDS: TAMSULOSIN HCL 0.4 MG CAPSULE PO (08:18)
[2021-12-10] MEDS: APIXABAN 2.5 MG TABLET 5 MG BY MOUTH ×2 (08:18→20:56)
[2021-12-10] MEDS: FINASTERIDE 5 MG TABLET PO (08:18)
[2021-12-10] MEDS: AZITHROMYCIN 250 MG TABLET 500 MG PO (08:19)
[2021-12-10] MEDS: allopurinoL 300 MG TABLET PO (08:19)
--- NOTE | 2021-12-10 09:10 | PC.NURSE ---
BP 126/73 post medications
[2021-12-10 16:00] VITALS: BP 130/82; PULSE 73; RESP 16; TEMP 36.3; O2SAT 92
[2021-12-10 20:56] VITALS: PULSE 72
[2021-12-11] VITALS: BP 136/81; PULSE 72; RESP 18; TEMP 35.6; O2SAT 93
--- NOTE | 2021-12-11 00:47 | PC.NURSE ---
Lilo is unable to chart on educational goals. Therefore, the charge nurse completes the charting that Lilo reports.
[2021-12-11 07:45] VITALS: BP 152/85; PULSE 84; RESP 16; TEMP 36.8; O2SAT 95
[2021-12-11 09:11] VITALS: PULSE 84
[2021-12-11] MEDS: METOPROLOL TARTRATE 25 MG TABLET BY MOUTH ×2 (09:11→20:48)
[2021-12-11] MEDS: allopurinoL 300 MG TABLET PO (09:11)
[2021-12-11] MEDS: FINASTERIDE 5 MG TABLET PO (09:11)
[2021-12-11] MEDS: LIDOCAINE 5% PATCH 2 PATCH TOPICAL (09:11)
[2021-12-11] MEDS: TAMSULOSIN HCL 0.4 MG CAPSULE PO (09:11)
[2021-12-11] MEDS: DULoxetine HCL 30 MG CAPSULE.DR PO (09:11)
[2021-12-11] MEDS: APIXABAN 2.5 MG TABLET 5 MG BY MOUTH ×2 (09:12→20:47)
[2021-12-11] MEDS: ATORVASTATIN 10 MG TABLET 20 MG PO (09:12)
[2021-12-11] MEDS: lisinopriL 20 MG TABLET 40 MG BY MOUTH (09:12)
[2021-12-11] MEDS: FLUTICASONE PROPIONATE 0.05% NA SPR 16 GM BTL (*BKC) 1 SPRAY NASAL (09:12)
[2021-12-11] MEDS: amLODIPine BESYLATE 5 MG TABLET PO (09:12)
[2021-12-11 16:00] VITALS: BP 101/73; PULSE 89; RESP 18; TEMP 35.7; O2SAT 91
[2021-12-11 20:48] VITALS: PULSE 80
[2021-12-11] MEDS: MELATONIN 5 MG TABLET PO (20:52)
[2021-12-12] VITALS: BP 138/80; PULSE 72; RESP 16; O2SAT 91
[2021-12-12 05:26] LABS: Basophils Absolute Auto 0.04 K/mm3 (0.00-0.10); Basophils Percent Auto 0.6 % (0.0-1.0); Eosinophils Absolute Auto 0.26 K/mm3 (0.02-0.50); Eosinophils Percent Auto 3.9 % (1.0-6.0); Hematocrit 39.2 % (37.0-46.0); Hemoglobin 12.6 g/dL (12.4-15.3); Immature Granulocyte Absolute 0.05 K/mm3 (0.00-0.00); Immature Granulocyte Percent A 0.7 % (0.0-0.0); Lymphocytes Absolute Auto 2.38 K/mm3 (1.10-4.50); Lymphocytes Percent Auto 35.4 % (18.0-42.0); Mean Corpuscular HGB Conc 32.1 g/dL (32.0-36.0); Mean Corpuscular Hemoglobin 28.4 pg (27.0-31.0); Mean Corpuscular Volume 88.5 fL (78.0-102.0); Mean Platelet Volume 10.2 fl (8.7-11.0); Monocytes Absolute Auto 0.59 K/mm3 (0.10-0.90); Monocytes Percent Auto 8.8 % (2.0-11.0); Neutrophils Absolute Auto 3.4 K/mm3 (1.7-7.2); Neutrophils Percent Auto 50.6 % (50.0-70.0); Platelet Count Result 225 K/mm3 (150-420); Red Blood Count 4.43 M/mm3 (4.70-6.10); Red Cell Distribution Width 13.5 % (11.6-14.4); White Blood Count 6.7 K/mm3 (4.8-10.8)
[2021-12-12 05:44] LABS: Alanine Aminotransferase 72 U/L (16-63); Albumin Level 2.7 g/dL (3.4-5.0); Alkaline Phosphatase 43 U/L (46-116); Anion Gap 10 mmol/L (8-16); Aspartate Amino Transferase 30 U/L (15-37); Bilirubin,Total 0.3 mg/dL (0.00-1.00); Blood Urea Nitrogen 15 mg/dL (7-18); Calcium 8.4 mg/dL (8.5-10.1); Carbon Dioxide 25 mmol/L (21-32); Chloride 107 mmol/L (98-108); Estimated CRCL calculation 98 ml/min; Estimated Glomerular Filt Rate > 60; Glucose 88 mg/dL (70-99); Osmolality Calculated 293 mOsm/kg (285-295); Sodium 142 mmol/L (136-145); Total Protein 6.2 g/dL (6.4-8.2)
[2021-12-12 07:35] VITALS: BP 155/76; PULSE 78; RESP 18; TEMP 36.4; O2SAT 92
[2021-12-12] MEDS: DULoxetine HCL 30 MG CAPSULE.DR PO (09:23)
[2021-12-12] MEDS: TAMSULOSIN HCL 0.4 MG CAPSULE PO (09:23)
[2021-12-12] MEDS: allopurinoL 300 MG TABLET PO (09:23)
[2021-12-12] MEDS: ATORVASTATIN 10 MG TABLET 20 MG PO (09:23)
[2021-12-12] MEDS: FLUTICASONE PROPIONATE 0.05% NA SPR 16 GM BTL (*BKC) 1 SPRAY NASAL (09:23)
[2021-12-12] MEDS: APIXABAN 2.5 MG TABLET 5 MG BY MOUTH ×2 (09:23→20:40)
[2021-12-12 09:24] VITALS: PULSE 78
[2021-12-12] MEDS: lisinopriL 20 MG TABLET 40 MG BY MOUTH (09:24)
[2021-12-12] MEDS: LIDOCAINE 5% PATCH 2 PATCH TOPICAL (09:24)
[2021-12-12] MEDS: METOPROLOL TARTRATE 25 MG TABLET BY MOUTH ×2 (09:24→20:40)
[2021-12-12] MEDS: amLODIPine BESYLATE 5 MG TABLET PO (09:24)
[2021-12-12] MEDS: FINASTERIDE 5 MG TABLET PO (09:24)
[2021-12-12 15:35] VITALS: BP 137/55; PULSE 78; RESP 16; TEMP 36.7; O2SAT 96
[2021-12-12 20:40] VITALS: PULSE 78
[2021-12-13] VITALS: BP 104/50; PULSE 82; RESP 20; TEMP 36.4; O2SAT 95
[2021-12-13 08:00] VITALS: BP 138/85; PULSE 77; RESP 16; TEMP 36.4; O2SAT 92
[2021-12-13] MEDS: ATORVASTATIN 10 MG TABLET 20 MG PO (08:40)
[2021-12-13] MEDS: TAMSULOSIN HCL 0.4 MG CAPSULE PO (08:41)
[2021-12-13] MEDS: LIDOCAINE 5% PATCH 2 PATCH TOPICAL (08:41)
[2021-12-13] MEDS: allopurinoL 300 MG TABLET PO (08:41)
[2021-12-13] MEDS: DULoxetine HCL 30 MG CAPSULE.DR PO (08:41)
[2021-12-13 08:42] VITALS: PULSE 68
[2021-12-13] MEDS: APIXABAN 2.5 MG TABLET 5 MG BY MOUTH ×2 (08:42→20:51)
[2021-12-13] MEDS: lisinopriL 20 MG TABLET 40 MG BY MOUTH (08:42)
[2021-12-13] MEDS: FINASTERIDE 5 MG TABLET PO (08:42)
[2021-12-13] MEDS: METOPROLOL TARTRATE 25 MG TABLET BY MOUTH ×2 (08:42→20:51)
[2021-12-13] MEDS: amLODIPine BESYLATE 5 MG TABLET PO (08:43)
[2021-12-13] MEDS: FLUTICASONE PROPIONATE 0.05% NA SPR 16 GM BTL (*BKC) 1 SPRAY NASAL (08:43)
[2021-12-13 16:00] VITALS: BP 140/74; PULSE 87; RESP 20; TEMP 36.6; O2SAT 90
[2021-12-13 20:51] VITALS: PULSE 87
[2021-12-13] MEDS: MELATONIN 5 MG TABLET PO (20:52)
[2021-12-13 23:43] VITALS: BP 140/67; PULSE 66; RESP 18; TEMP 36.3; O2SAT 93
[2021-12-14 08:00] VITALS: BP 144/84; PULSE 92; RESP 20; TEMP 36.1; O2SAT 94
[2021-12-14] MEDS: LIDOCAINE 5% PATCH 2 PATCH TOPICAL (08:39)
[2021-12-14] MEDS: ATORVASTATIN 10 MG TABLET 20 MG PO (08:43)
[2021-12-14] MEDS: FINASTERIDE 5 MG TABLET PO (08:44)
[2021-12-14] MEDS: DULoxetine HCL 30 MG CAPSULE.DR PO (08:44)
[2021-12-14] MEDS: allopurinoL 300 MG TABLET PO (08:44)
[2021-12-14] MEDS: lisinopriL 20 MG TABLET 40 MG BY MOUTH (08:44)
[2021-12-14] MEDS: amLODIPine BESYLATE 5 MG TABLET PO (08:44)
[2021-12-14] MEDS: APIXABAN 2.5 MG TABLET 5 MG BY MOUTH ×2 (08:44→20:39)
[2021-12-14 08:45] VITALS: PULSE 74
[2021-12-14] MEDS: FLUTICASONE PROPIONATE 0.05% NA SPR 16 GM BTL (*BKC) 1 SPRAY NASAL (08:45)
[2021-12-14] MEDS: METOPROLOL TARTRATE 25 MG TABLET BY MOUTH ×2 (08:45→20:39)
[2021-12-14] MEDS: TAMSULOSIN HCL 0.4 MG CAPSULE PO (08:45)
--- NOTE | 2021-12-14 09:21 | WPDPN ---
Progress Note: A&P Assessment and Plan (1) Multiple sclerosis: Code(s): G35 - Multiple sclerosis Status: Acute Assessment and Plan: continue on home medication PT/OT treat symptoms accordinglying (2) Fever: Code(s): R50.9 - Fever, unspecified Status: Acute Assessment and Plan: resolved (3) Hypertension: Code(s): I10 - Essential (primary) hypertension Status: Acute Assessment and Plan: continue to monitor blood pressre continue home medication Adjust accordingly (4) UTI (urinary tract infection): Code(s): N39.0 - Urinary tract infection, site not specified Status: Acute Assessment and Plan: Urine culture with no growth Antibiotic treatment complete (5) Weakness: Code(s): R53.1 - Weakness Status: Acute Assessment and Plan: PT/OT Evaluate and treat Subjective Date/time seen: 12/14/21 09:21 Interval history: Patient notes that his physical therapy is going well his pain is controlled and he is sleeping well overnight. Patient only concern is Lantigua placement he is requesting that Lantigua be discontinued. We will put a order in for quality to be discontinued he did not come here with a Lantigua in place. Patient notes that he is ready for discharge on Saturday. The patient denies SOB, CP, palpitation, extremity numbness, lightheadedness, dizziness, constipation, diarrhea, chills, or fever. Review of Systems Review of Systems: All systems reviewed & are unremarkable except as noted in HPI and below Exam Narrative: GENERAL: Obese this is a well-nourished, well-developed patient, in no apparent distress. HEAD: normocephalic, atraumatic. EYES: PERRL. Sclera clear/white. Vision is grossly intact. EARS: External ears normal, auditory canals clear and without drainage, TMs normal without perforation. Hearing grossly intact. NOSE: External nose normal with no obvious nasal discharge, nares without redness, no rhinorrhea. THROAT: Mucous membranes moist, posterior pharynx clear. NECK: Neck supple, non-tender without lymphadenopathy, masses or thyromegaly. CARDIOVASCULAR: Regular rate and rhythm without murmurs, gallops, or rubs. RESPIRATORY: Clear to auscultation. Breath sounds equal bilaterally. No wheezes, rales, or rhonchi.? GASTROINTESTINAL: Abdomen soft, non-tender, nondistended. Bowel sounds are active. No hepato-splenomegaly, or palpable masses. No guarding. SKIN: warm, intact with no suspicious lesions or rash, good texture and turgor. NEURO: awake, alert, and oriented to person, place and time. There were no obvious focal neurologic abnormalities.? Patient is bedbound EXTREMITIES: ? trace edema. No calf tenderness. Negative Homans sign bilaterally. Objective Data Vital Signs Vital Signs: Vital Signs - 24 hr 12/13/21 16:00 12/13/21 20:51 12/13/21 23:43 Temperature 97.8 F 97.3 F L Pulse Rate 87 87 66 Respiratory Rate 20 18 Blood Pressure 140/74 140/67 Pulse Oximetry 90 93 Oxygen Delivery Room Air Room Air 12/14/21 08:45 Temperature Pulse Rate 74 Respiratory Rate Blood Pressure Pulse Oximetry Oxygen Delivery Intake/Output Intake/Output: Intake & Output 12/11/21 12/12/21 12/13/21 12/14/21 23:59 23:59 23:59 23:59 Intake Total 2110 1980 1080 360 Output Total 1850 2075 1800 950 Balance 260 -95 -720 -590 Meds/Results Medications: Active Medications Generic Name Dose Route Start Last Admin Trade Name Freq PRN Reason Stop Dose Admin Allopurinol 300 mg 12/07/21 08:00 12/14/21 08:44 Allopurinol 300 Mg Tablet PO 300 mg DAILY@0800 OLIVIA Administration Amlodipine Besylate 5 mg 12/07/21 09:00 12/14/21 08:44 Amlodipine Besylate 5 Mg Tablet PO 5 mg QAM OLIVIA Administration Apixaban 5 mg 12/06/21 21:00 12/14/21 08:44 Apixaban 2.5 Mg Tablet BY MOUTH 5 mg Q12HR OLIVIA Administration Atorvastatin Calcium 20 mg 12/07/21 09:00 12/14/21 08:43 Atorvasta
[2021-12-14 15:45] VITALS: BP 118/74; PULSE 84; RESP 18; O2SAT 94
[2021-12-14 20:00] VITALS: PULSE 78; RESP 18; O2SAT 94
[2021-12-14 20:39] VITALS: PULSE 78
[2021-12-14] MEDS: MELATONIN 5 MG TABLET PO (20:39)
[2021-12-15] VITALS: BP 127/81; PULSE 78; RESP 18; TEMP 36.2; O2SAT 93
[2021-12-15 07:48] VITALS: BP 129/77; PULSE 74; RESP 18; TEMP 36.2; O2SAT 93
[2021-12-15] MEDS: FINASTERIDE 5 MG TABLET PO (09:04)
[2021-12-15] MEDS: ATORVASTATIN 10 MG TABLET 20 MG PO (09:04)
[2021-12-15] MEDS: DULoxetine HCL 30 MG CAPSULE.DR PO (09:04)
[2021-12-15] MEDS: FLUTICASONE PROPIONATE 0.05% NA SPR 16 GM BTL (*BKC) 1 SPRAY NASAL (09:04)
[2021-12-15] MEDS: METOPROLOL TARTRATE 25 MG TABLET BY MOUTH ×2 (09:04→20:11)
[2021-12-15] MEDS: APIXABAN 2.5 MG TABLET 5 MG BY MOUTH ×2 (09:04→20:11)
[2021-12-15] MEDS: allopurinoL 300 MG TABLET PO (09:05)
[2021-12-15] MEDS: LIDOCAINE 5% PATCH 2 PATCH TOPICAL (09:05)
[2021-12-15] MEDS: lisinopriL 20 MG TABLET 40 MG BY MOUTH (09:05)
[2021-12-15] MEDS: TAMSULOSIN HCL 0.4 MG CAPSULE PO (09:05)
[2021-12-15] MEDS: amLODIPine BESYLATE 5 MG TABLET PO (09:05)
[2021-12-15 15:30] VITALS: BP 130/68; PULSE 78; RESP 18; TEMP 36.4; O2SAT 95
--- NOTE | 2021-12-15 17:00 | PC.NURSE ---
Pt is A&O x3, pt assistd c use of stanislaw steady and x2 nurses to sit in chair for dinner. Pt tolerated well, pt setup for for dinner and feeds self s difficulty. Call bowden at pt side.
[2021-12-15 20:11] VITALS: PULSE 70
[2021-12-15 23:04] VITALS: BP 132/82; PULSE 78; RESP 16; TEMP 36.2; O2SAT 93
[2021-12-16 08:00] VITALS: BP 135/80; PULSE 80; RESP 16; TEMP 36.8; O2SAT 98
[2021-12-16] MEDS: allopurinoL 300 MG TABLET PO (08:07)
[2021-12-16] MEDS: lisinopriL 20 MG TABLET 40 MG BY MOUTH (09:05)
[2021-12-16] MEDS: LIDOCAINE 5% PATCH 2 PATCH TOPICAL (09:05)
[2021-12-16] MEDS: FLUTICASONE PROPIONATE 0.05% NA SPR 16 GM BTL (*BKC) 1 SPRAY NASAL (09:05)
[2021-12-16] MEDS: DULoxetine HCL 30 MG CAPSULE.DR PO (09:06)
--- NOTE | 2021-12-16 09:06 | PM.DS ---
DS: Admitting Diagnosis Discharge Date 12/16/2021 Admitting Diagnosis rehab weakness DS: Discharge Diagnosis Discharge Diagnosis (1) Multiple sclerosis: Code(s): G35 - Multiple sclerosis Status: Acute Assessment and Plan: continue on home medication (2) Fever: Code(s): R50.9 - Fever, unspecified Status: Acute Assessment and Plan: resolved (3) Hypertension: Code(s): I10 - Essential (primary) hypertension Status: Acute Assessment and Plan: continue to monitor blood pressre continue home medication (4) UTI (urinary tract infection): Code(s): N39.0 - Urinary tract infection, site not specified Status: Acute Assessment and Plan: Urine culture with no growth Antibiotic treatment complete (5) Weakness: Code(s): R53.1 - Weakness Status: Acute Assessment and Plan: Completed PT OT patient is at baseline. DS: Summary Hospital Course Reason for hospitalization: Weakness, dehydration Hospital Course: This is a 71-year-old male who presented to our emergency department on 12/02/2021 for abdominal pain believed to be due to urinary retention at that time his Bumex was increased to 0.4 twice daily and instructions to follow-up with urology.? On 12/04/2021 he presented to the ED with flulike symptoms.? Patient has a past medical history of weakness, pulmonary embolism, hypertension, insomnia, MS and anxiety disorder.? Patient transition into our swing bed. He will discharge today he is at baseline. Discharge instructions reviewed with patient, as well as provided in writing per nursing staff. The instructions also include specific and strict return/GO TO THE ER as well as f/u information. All questions have been answered, and the patient and/or family deny any further questions with discharge and discharge plan. Time Spent with Patient Time attestation: Total time spent providing and/or coordinating discharge services: Exam Narrative: GENERAL: Obese this is a well-nourished, well-developed patient, in no apparent distress. HEAD: normocephalic, atraumatic. EYES: PERRL. Sclera clear/white. Vision is grossly intact. EARS: External ears normal, auditory canals clear and without drainage, TMs normal without perforation. Hearing grossly intact. NOSE: External nose normal with no obvious nasal discharge, nares without redness, no rhinorrhea. THROAT: Mucous membranes moist, posterior pharynx clear. NECK: Neck supple, non-tender without lymphadenopathy, masses or thyromegaly. CARDIOVASCULAR: Regular rate and rhythm without murmurs, gallops, or rubs. RESPIRATORY: Clear to auscultation. Breath sounds equal bilaterally. No wheezes, rales, or rhonchi.? GASTROINTESTINAL: Abdomen soft, non-tender, nondistended. Bowel sounds are active. No hepato-splenomegaly, or palpable masses. No guarding. SKIN: warm, intact with no suspicious lesions or rash, good texture and turgor. NEURO: awake, alert, and oriented to person, place and time. There were no obvious focal neurologic abnormalities.? Patient is bedbound EXTREMITIES: ? trace edema. No calf tenderness. Negative Homans sign bilaterally. Discharge Plan Discharge Attending physician on discharge: Santiago Myrick Discharging Clinician: Nga Contreras Anticipated Discharge Date/Time: 12/16/21 09:02 Patient Disposition: Home Health Service Activity: as tolerated Diet: heart healthy Discharge Instructions: Follow up with primary care physician within 1-2 weeks Notify your physician of any sign and symptoms of infection Take medication as prescribed Call your provider or seek immediate medical attention if you experience any difficulty breathing, chest pain, heaviness or tightness, chills or fever over 101 degree, persistent nausea and vomiting Per Care Coordination: [facility] will follow pt at home with nursing, PT and OT. RN to call [facility] when pt is disch
[2021-12-16] MEDS: FINASTERIDE 5 MG TABLET PO (09:07)
[2021-12-16] MEDS: ATORVASTATIN 10 MG TABLET 20 MG PO (09:07)
[2021-12-16] MEDS: APIXABAN 2.5 MG TABLET 5 MG BY MOUTH (09:08)
[2021-12-16] MEDS: amLODIPine BESYLATE 5 MG TABLET PO (09:08)
[2021-12-16 09:09] VITALS: PULSE 70
[2021-12-16] MEDS: METOPROLOL TARTRATE 25 MG TABLET BY MOUTH (09:09)
[2021-12-16] MEDS: TAMSULOSIN HCL 0.4 MG CAPSULE PO (09:09)
--- NOTE | 2021-12-16 12:56 | PC.NURSE ---
Pt discharged to home with VSS. Pt instructed regarding home medications, follow up doctor appointment, Home health to call Saturday. RN transported pt to family car via and helped him in.
--- NOTE | 2021-12-18 11:32 | PC.NURSE ---
Pt states he received and understood the discharge instructions. Pt also states the care was very good .
== END 2021-12-16 11:30 | disposition home health service (06) | DRG 948 ==
PROVIDERS: Nurse Practitioner; Admitting Provider Internal Medicine; PCP Nurse Practitioner Family; Visit Provider Internal Medicine
DX: R53.1 Weakness (principal); N39.0 Urinary tract infection, site not specified; I10 Essential (primary) hypertension; G35 Multiple sclerosis; F41.9 Anxiety disorder, unspecified; Z86.711 Personal history of pulmonary embolism; Z79.01 Long term (current) use of anticoagulants; Z87.891 Personal history of nicotine dependence
CPT/HCPCS: 36415; 80053; 85025; 97110; 97161; 97165; 97530; 97535; A9270

== ENCOUNTER 2021-12-26 11:07 | Outpatient (NON) | payer MEDICARE, SELFPAY ==
[2021-12-26 11:40] LABS: Prostate Specific Antigen 0.6 ng/mL (< OR = 4.0)
== END 2021-12-26 11:08 | disposition home or self-care (01) ==
LOC: CHSHH 11:09
PROVIDERS: Visit Provider Nurse Practitioner Adult Health
DX: Z12.5 Encounter for screening for malignant neoplasm of prostate (principal)
CPT/HCPCS: 36415; 84153; G0103

== ENCOUNTER 2022-04-08 13:01 | Emergency (ER) | payer MEDICARE, SELFPAY ==
--- NOTE | ~2022-04-08 | CT_ITS ---
EXAMINATION: CT brain wo con DATE: 04/08/2022 14:05 INDICATION: Status post fall. Head injury. TECHNIQUE: Computed tomography (CT) of the head was performed without intravenous contrast. The dose- length product was 756.67 mGy-cm. Automated exposure control and iterative reconstruction technique w ere employed. COMPARISON: CT dated 06/30/2020 FINDINGS: There is prominent CSF space posterior to the cerebellum which may represent an arachnoid c yst or cisterna magna. Generalized atrophy. There are scattered mild periventricular and subcortical white matter changes, most likely related to small vessel ischemic disease (microangiopathy). No acut e intracranial hemorrhage, infarction, mass or mass effect. There is intracranial atherosclerosis. Pa ranasal sinuses and mastoids are pneumatized. No depressed skull fractures. IMPRESSION: 1. No acute intracranial abnormality. 2: Chronic age-related findings. Reviewed, dictated and finalized at location A. UNT DEVELOPER
--- NOTE | ~2022-04-08 | CT_ITS ---
EXAMINATION: CT cervical spine wo con DATE: 04/08/2022 14:06 INDICATION: Neck pain after fall TECHNIQUE: Computed tomography (CT) of the cervical spine was performed without intravenous contrast. The dose-length product was 543 mGy-cm. Automated exposure control and iterative reconstruction tech [id number] were employed. COMPARISON: CT dated 06/06/2016 FINDINGS: There is degenerative disc disease at C4-5, C5-6 and C6-7 with marginal osteophytes. No sig nificant change from prior study. Odontoid process is normal. Craniovertebral junction within normal limits. No evidence for perched facet. Spinous processes are normal. No acute fracture or traumatic m alalignment. There is multilevel uncinate hypertrophy. Lateral masses are normally aligned. Mild dext rocurvature of the cervical spine. No significant paraspinal soft tissue abnormality. Lung apices are unremarkable. IMPRESSION: 1. No acute abnormality of the cervical spine. 2: Moderate cervical spondylosis. Reviewed, dictated and finalized at location A. CHAIN MAKER
--- NOTE | ~2022-04-08 | XR_ITS ---
EXAMINATION: XR chest 1V portable 04/08/2022 14:04 INDICATION: Chest pain PROCEDURE: AP portable chest COMPARISON: Comparison to multiple prior studies sequentially, with oldest reviewed study dated 12/22. FINDINGS: The lungs are clear. The cardiomediastinal silhouette is within normal limits. There are no pleural effusions. There is no pneumothorax suspected. IMPRESSION: 1: NO ACUTE CARDIOPULMONARY DISEASE. Reviewed, dictated and finalized at location A. OUS EXCEPTIONALITIES TEACHER
[2022-04-08 13:05] VITALS: BP 129/73; PULSE 76; RESP 18; TEMP 36.3; O2SAT 96
--- NOTE | 2022-04-08 13:25 | ECG_ITS ---
Measurements Intervals [place] Rate: 61 P: 30 MI: 208 QRS: 3 QRSD: 114 T: 67 QT: 433 QTc: 437 Interpretive Statements SINUS RHYTHM INCOMPLETE RIGHT BUNDLE BRANCH BLOCK NONSPECIFIC T-WAVE ABNORMALITY BORDERLINE ECG COMPARED TO ECG 12/04/2021 08:47:21 HEART RATE HAS DECREASED ANTEROLATERAL ST ABNORMALITIES NO LONGER APPRECIATED Electronically Signed On 04-09-2022 14:45:13 SHIFT BOSS by Jay Conroy M.D.
--- NOTE | 2022-04-08 13:29 | ED.HEATRA ---
HPI - Head Injury General Chief complaint: Head Injury Stated complaint: hit head Time Seen by Provider: 04/08/22 13:05 Source: patient and RN notes reviewed Mode of arrival: wheelchair Limitations: no limitations History of Present Illness Complaint: head injury and fall (fell backwards onto the bed and hit occiput. no LOC.) Onset (ago): hour(s) (1) Mechanism of Injury: fall Place: home Loss of Consciousness: no Location of injury: occipital Severity: mild Severity scale (1-10): 2 Quality: dull and aching Radiation: none Context: other anticoagulant use Related Data Home Medications Medication Instructions Recorded Confirmed finasteride 5 mg tablet 8 mg PO DAILY 03/09/19 04/08/22 tamsulosin 0.4 mg capsule (Flomax) 0.4 mg PO DAILY 03/09/19 04/08/22 clonazepam 1 mg tablet 1 mg PO DIRECTED 05/21/19 04/08/22 tizanidine 4 mg capsule 4 mg PO DAILY PRN Muscle Pain 12/28/19 04/08/22 Allergies Allergy/AdvReac Type Severity Reaction Status Date / Time diclofenac [Cataflam] Allergy Intermediate hypertensio Verified 04/08/22 13:12 n oseltamivir [Tamiflu] Allergy Intermediate Delusions Verified 04/08/22 13:12 Review of Systems Review of Systems: All systems reviewed & are unremarkable except as noted in HPI and below Constitutional: Constitutional: Reports no additional constitutional complaints Eyes: Eyes: Reports no additional eye complaints ENT: Reports system reviewed and no additional complaints, except as documented Cardiovascular: Cardiovascular: Reports no additional cardiovascular complaints Respiratory: Respiratory: Reports no additional respiratory complaints Gastrointestinal: Gastrointestinal: Reports no additional gastrointestinal complaints Musculoskeletal: Musculoskeletal: Reports no additional musculoskeletal complaints Integumentary/Breasts: Skin/Breast: Reports system reviewed and no additional complaints, except as docu Neurologic: Reports system reviewed and no additional complaints, except as documented and Reports headache(s) Psychiatric: Psychiatric: Reports no additional psychiatric complaints Endocrine: Endocrine: Reports no additional endocrine complaints Hematologic/Lymphatic: Hematologic/Lymphatic: Reports no additional hematologic/lymphatic complaints Allergic/Immunologic: Allergic/Immunologic: Reports no additional allergic/immunologic complaints PMFSH Past Medical History Medical History Erectile dysfunction Fall Foot pain ZENAIDA (generalized anxiety disorder) Generalized weakness Head injury History of pulmonary embolism HTN (hypertension) Insomnia Multiple sclerosis Surgical History Surgical History History of embolectomy Family History Family History Mother Hypertension Brother Hypertension Sister Hypertension Social History Social History Smoking packs per day: 0.5 Smoking cigarettes per day: 10.0 Years smoked: 15 Smoking pack-years: 7.50 Smoking status: Former smoker Tobacco type: cigarettes Second hand tobacco smoke exposure: Yes Smoking end date: 10/05/91 Alcohol intake: never Drinks per week: 12 Substance use: never Gender identity (if verbalized by the patient): Male Sexual Orientation (if Verbalized by the Patient): Straight or Heterosexual Spiritual care concerns: No Exam Const: General: healthy appearing, no acute distress and well nourished Nutritional Appearance: well nourished Orientation/consciousness: patient oriented x3 Limitations: no limitations HENMT: Head: normal to inspection Ears: external ears normal, TM's normal bilaterally and EAC's normal Face/Nose/Sinus: Normal external nose present, Normal nares present, normal facial exam and sinuses nontender Face and sinus: nor
[2022-04-08] MEDS: ACETAMINOPHEN 325 MG TABLET 650 MG PO (14:01)
[2022-04-08] MEDS: SODIUM CHLORIDE 0.9% IV 500 ML 999 ML IV CONT (14:03)
[2022-04-08 14:51] LABS: INR 1.1; Partial Thromboplastin Time 33.9 SEC (23.90-30.70); Prothrombin Time 12.3 Seconds (9.50-12.10)
[2022-04-08 14:52] LABS: Creatine Kinase 83 U/L (39-308)
[2022-04-08 14:55] LABS: Lactic Acid Reflex 1.3 mmol/L (0.4-2.0)
[2022-04-08 15:26] VITALS: BP 144/77; PULSE 63; RESP 16; TEMP 36.7; O2SAT 97
== END 2022-04-08 15:51 | disposition home or self-care (01) ==
PROVIDERS: Emergency Provider Emergency Medicine; PCP Nurse Practitioner Family
DX: S09.90XA Unspecified injury of head, initial encounter (principal); W19.XXXA Unspecified fall, initial encounter; I10 Essential (primary) hypertension; Z86.711 Personal history of pulmonary embolism; G35 Multiple sclerosis; Z87.891 Personal history of nicotine dependence
CPT/HCPCS: 36415; 70450; 71045; 72125; 82550; 83605; 85610; 85730; 93005; 99284; A9270; J7040

== ENCOUNTER 2023-03-24 14:40 | Emergency (ER) | payer MEDICARE, SELFPAY ==
[2023-03-24] VITALS (12 sets, daily range): BP systolic 111–140; BP diastolic 51–79; PULSE 63–87; RESP 15–20; TEMP 36.3–36.6; O2SAT 89–97
--- NOTE | 2023-03-24 14:47 | ED.WEAKNESS ---
HPI - Weakness General Chief complaint: Weakness Stated complaint: weakness Time Seen by Provider: 03/24/23 14:46 Source: patient and RN notes reviewed Mode of arrival: ambulatory Limitations: no limitations History of Present Illness HPI Narrative: Patient states that he has been having diarrhea for approximately a week. His PCP called and medics and for the diarrhea some FiberCon. Today he was on the Krissy lift getting off the stool when he suddenly felt flushed began breathing more rapidly. He felt overall weak. When EMS arrived they put him on some oxygen he said he immediately felt better on arrival he said he feels back to his baseline but still feeling a little bit weak. Complaint: generalized weakness Onset (ago): day(s) (today) Duration: improved Location: generalized Migration: none Severity: moderate Relieving factors: none Exacerbating factors: none Associated symptoms: other ( Diarrhea for 1 week) Related Data Home Medications Medication Instructions Recorded Confirmed finasteride 5 mg tablet 8 mg PO DAILY 03/09/19 03/24/23 clonazepam 1 mg tablet 1 mg PO DIRECTED 05/21/19 03/24/23 tamsulosin 0.4 mg capsule (Flomax) 0.8 mg PO DAILY 05/14/22 03/24/23 Allergies Allergy/AdvReac Type Severity Reaction Status Date / Time diclofenac [Cataflam] Allergy Intermediate hypertensio Verified 03/24/23 14:52 n oseltamivir [Tamiflu] Allergy Intermediate Delusions Verified 03/24/23 14:52 Review of Systems Review of Systems: All systems reviewed & are unremarkable except as noted in HPI and below PMFSH Past Medical History Medical History Erectile dysfunction Fall Foot pain ZENAIDA (generalized anxiety disorder) Generalized weakness Head injury History of pulmonary embolism HTN (hypertension) Insomnia Multiple sclerosis Surgical History Surgical History History of embolectomy Family History Family History Mother Hypertension Brother Hypertension Sister Hypertension Social History Social History Smoking packs per day: 0.5 Smoking cigarettes per day: 10.0 Years smoked: 15 Smoking pack-years: 7.50 Smoking status: Former smoker Tobacco type: cigarettes Second hand tobacco smoke exposure: Yes Smoking end date: 10/05/91 Alcohol intake: never Drinks per week: 12 Substance use: never Living arrangements: with family Occupation/Education: retired Gender identity (if verbalized by the patient): Male Sexual Orientation (if Verbalized by the Patient): Straight or Heterosexual Spiritual care concerns: No Exam Const: General: no acute distress, alert and ill appearing chronically Nutritional Appearance: obese morbidly obese Orientation/consciousness: patient oriented x3 Limitations: no limitations HENMT: Head: normal to inspection Ears: external ears normal Face/Nose/Sinus: Normal external nose present Face and sinus: normal facial exam Mouth: Yes moist mucous membranes Eyes: Conjunctivae: conjunctivae normal Pupils: Equal, round and reactive pupils present EOM: EOMs intact bilaterally Neck: Neck: normal visual inspection Resp: Effort & Inspection: normal respiratory effort Auscultation: clear to auscultation bilaterally Cardio: Rate: regular rate Rhythm: regular rhythm GI: GI Palp: Yes Soft to palpation and No Tenderness to palpation present (GI) Auscultation: normal bowel sounds Back/Spine/Pelvis: Cervical Spine: cervical ROM normal Skin: General skin exam: normal color Rashes: no rashes Neuro: General: patient oriented x3, moves all extremities, no focal motor deficits and CN's II-XI intact bilaterally Speech: normal speech Extrem: General: edema bilateral (brawny) Psych: Mental Status: mental status grossly normal Affect:
[2023-03-24 16:10] LABS: Basophils Absolute Auto 0.05 K/mm3 (0.00-0.10); Basophils Percent Auto 0.9 % (0.0-1.0); Eosinophils Absolute Auto 0.26 K/mm3 (0.02-0.50); Eosinophils Percent Auto 4.5 % (1.0-6.0); Hematocrit 45.8 % (37.0-46.0); Hemoglobin 14.6 g/dL (12.4-15.3); Immature Granulocyte Absolute 0.03 K/mm3 (0.00-0.00); Immature Granulocyte Percent A 0.5 % (0.0-0.0); Lymphocytes Absolute Auto 1.55 K/mm3 (1.10-4.50); Lymphocytes Percent Auto 26.6 % (18.0-42.0); Mean Corpuscular HGB Conc 31.9 g/dL (32.0-36.0); Mean Corpuscular Hemoglobin 28.2 pg (27.0-31.0); Mean Corpuscular Volume 88.4 fL (78.0-102.0); Mean Platelet Volume 10.1 fl (8.7-11.0); Monocytes Absolute Auto 0.58 K/mm3 (0.10-0.90); Monocytes Percent Auto 9.9 % (2.0-11.0); Neutrophils Absolute Auto 3.4 K/mm3 (1.7-7.2); Neutrophils Percent Auto 57.6 % (50.0-70.0); Platelet Count Result 238 K/mm3 (150-420); Red Blood Count 5.18 M/mm3 (4.70-6.10); Red Cell Distribution Width 14.2 % (11.6-14.4); White Blood Count 5.8 K/mm3 (4.8-10.8)
[2023-03-24 16:21] LABS: Alanine Aminotransferase 105 U/L (16-63); Albumin Level 3.2 g/dL (3.4-5.0); Alkaline Phosphatase 55 U/L (46-116); Anion Gap 6 mmol/L (8-16); Aspartate Amino Transferase 44 U/L (15-37); Bilirubin,Total 0.4 mg/dL (0.00-1.00); Blood Urea Nitrogen 16 mg/dL (7-18); CRP 1.5 mg/dL (0.0-0.9); Calcium 9.1 mg/dL (8.5-10.1); Carbon Dioxide 34 mmol/L (21-32); Chloride 102 mmol/L (98-108); Estimated CRCL calculation 74 ml/min; Estimated Glomerular Filt Rate > 60; Glucose 102 mg/dL (70-99); Osmolality Calculated 295 mOsm/kg (285-295); Sodium 142 mmol/L (136-145); Total Protein 7.8 g/dL (6.4-8.2)
[2023-03-24 16:30] LABS: Lactic Acid Reflex 1.4 mmol/L (0.4-2.0)
--- NOTE | 2023-03-24 17:43 | PC.NURSE ---
Pt placed in w/c c aleks lift and assist of family and FARZANA Wolff. Pt instructed on diet, fluids and food replacement for diarrhea. Pt stated understanding.
== END 2023-03-24 17:44 | disposition home or self-care (01) ==
PROVIDERS: Emergency Provider Emergency Medicine; PCP Nurse Practitioner Family
DX: R55 Syncope and collapse (principal); I10 Essential (primary) hypertension; G35 Multiple sclerosis; Z79.899 Other long term (current) drug therapy; Z87.891 Personal history of nicotine dependence
CPT/HCPCS: 36415; 80053; 83605; 83735; 85025; 86140; 99283

== ENCOUNTER 2023-04-01 15:14 | Outpatient (CLI) | payer MEDICARE, SELFPAY ==
--- NOTE | ~2023-04-01 | XR_ITS ---
EXAMINATION: XR elbow LT min 3V DATE: 04/01/2023 15:40 INDICATION: Chronic left elbow pain TECHNIQUE: 6 views of the left elbow were obtained. COMPARISON: None. FINDINGS: Alignment is normal. No fracture or joint effusion. Osteoarthritis with mild joint space narrowing wi th small to moderate size marginal osteophytes in all 3 compartments of the left elbow. Small loose o steochondral body at the olecranon fossa. There is also a moderate-sized enthesophyte at the tip of t he olecranon. Soft tissues are unremarkable. IMPRESSION: 1. 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 No acute osseous abnormality. Reviewed, dictated and finalized at location A. HIATRIC SOCIAL WORKER SUPERVISOR
== END 2023-04-01 15:15 | disposition home or self-care (01) ==
PROVIDERS: PCP Nurse Practitioner Family; Visit Provider Nurse Practitioner Family
DX: M19.022 Primary osteoarthritis, left elbow (principal); M79.602 Pain in left arm
CPT/HCPCS: 73080

== ENCOUNTER 2023-07-16 11:08 | Outpatient (CLI) | payer MEDICARE, SELFPAY ==
[2023-07-16 13:17] LABS: Appearance Urine Slightly Cloudy (Clear); Bilirubin Urine Negative (Negative); Blood Urine 2+ (Negative); Color Urine Light Yellow (Yellow); Glucose Urine UA Negative (Negative); Ketones Urine Negative (Negative); Leukocyte Esterase Ur 1+ LEU/UL (Negative); Nitrate Urine Positive (Negative); Protein Urine Trace (Negative); Urobilinogen Urine 0.2 mg/dL (0.2-1.0)
[2023-07-16 13:31] LABS: Add Urine Microscopic? YES; Bacteria Urine 3+ /hpf; WBC Urine 31-50 /hpf (0-3)
== END 2023-07-16 11:09 | disposition home or self-care (01) ==
LOC: CHSLAB 11:09
PROVIDERS: PCP Nurse Practitioner Family; Visit Provider Nurse Practitioner Family
DX: N39.0 Urinary tract infection, site not specified (principal)
CPT/HCPCS: 81001; 87077; 87086; 87088; 87186

== ENCOUNTER 2023-07-29 10:02 | Outpatient (CLI) | payer MEDICARE, SELFPAY ==
[2023-07-29 10:32] LABS: Appearance Urine Clear (Clear); Bilirubin Urine Negative (Negative); Blood Urine Negative (Negative); Color Urine Light Yellow (Yellow); Glucose Urine UA Negative (Negative); Ketones Urine Negative (Negative); Leukocyte Esterase Ur Negative LEU/UL (Negative); Nitrate Urine Negative (Negative); Protein Urine Negative (Negative); Urobilinogen Urine 0.2 mg/dL (0.2-1.0); pH Urine 5.5 (5.0-8.0)
[2023-07-29 10:39] LABS: Add Urine Microscopic? NO
== END 2023-07-29 10:03 | disposition home or self-care (01) ==
PROVIDERS: PCP Nurse Practitioner Family; Visit Provider Nurse Practitioner Family
DX: Z87.898 Personal history of other specified conditions (principal)
CPT/HCPCS: 81003

== ENCOUNTER 2023-08-15 15:03 | Outpatient (NON) | payer MEDICARE, SELFPAY ==
[2023-08-15 15:37] LABS: Basophils Absolute Auto 0.05 K/mm3 (0.00-0.10); Basophils Percent Auto 0.7 % (0.0-1.0); Eosinophils Absolute Auto 0.23 K/mm3 (0.02-0.50); Eosinophils Percent Auto 3.2 % (1.0-6.0); Hematocrit 47.1 % (37.0-46.0); Hemoglobin 14.7 g/dL (12.4-15.3); Immature Granulocyte Absolute 0.02 K/mm3 (0.00-0.00); Immature Granulocyte Percent A 0.3 % (0.0-0.0); Lymphocytes Absolute Auto 2.42 K/mm3 (1.10-4.50); Lymphocytes Percent Auto 34.1 % (18.0-42.0); Mean Corpuscular HGB Conc 31.2 g/dL (32-36); Mean Corpuscular Hemoglobin 27.4 pg (27.0-31.0); Mean Corpuscular Volume 87.7 fL (78.0-102.0); Monocytes Absolute Auto 0.51 K/mm3 (0.10-0.90); Monocytes Percent Auto 7.2 % (2.0-11.0); Neutrophils Absolute Auto 3.87 K/mm3 (1.70-7.20); Neutrophils Percent Auto 54.5 % (50.0-70.0); Platelet Count Result 224 K/mm3 (150-420); Red Blood Count 5.37 M/mm3 (4.70-6.10); Red Cell Distribution Width 14.8 % (11.6-14.4); White Blood Count 7.1 K/mm3 (4.8-10.8)
[2023-08-15 15:46] LABS: Hemoglobin A1C 6.1 % (<5.7)
[2023-08-15 15:52] LABS: Alanine Aminotransferase 68 U/L (16-63); Albumin Level 3.4 g/dL (3.4-5.0); Alkaline Phosphatase 77 U/L (46-116); Anion Gap 7 mmol/L (4-12); Aspartate Amino Transferase 33 U/L (15-37); Bilirubin,Total 0.3 mg/dL (0.00-1.00); Blood Urea Nitrogen 12 mg/dL (7-18); Carbon Dioxide 33 mmol/L (21-32); Chloride 104 mmol/L (98-108); Cholesterol 123 mg/dL (0-200); Estimated Glomerular Filt Rate > 60; Glucose 84 mg/dL (70-99); HDL Direct 37 mg/dL (40-60); LDL Cholesterol Calculated 72 mg/dL (<130); Magnesium 1.8 mg/dL (1.8-2.4); Osmolality Calculated 296 mOsm/kg (285-295); Potassium 4.3 mmol/L (3.5-5.1); Sodium 144 mmol/L (136-145); Total Protein 7.4 g/dL (6.4-8.2); Triglycerides 72 mg/dL (0-150)
[2023-08-17 00:36] LABS: Vitamin D 25 Hydroxy 66 ng/mL (30-100)
== END 2023-08-15 15:04 | disposition home or self-care (01) ==
LOC: CHSLAB 15:04
PROVIDERS: Visit Provider Nurse Practitioner Family
DX: R73.09 Other abnormal glucose (principal); I10 Essential (primary) hypertension; Z13.6 Encounter for screening for cardiovascular disorders; Z79.899 Other long term (current) drug therapy
CPT/HCPCS: 36415; 80053; 80061; 82306; 83036; 83735; 85025

== ENCOUNTER 2023-09-25 11:19 | Outpatient (NON) | payer MEDICARE, SELFPAY ==
[2023-09-25 12:26] LABS: Color Urine Yellow (Yellow)
[2023-09-25 12:27] LABS: Appearance Urine Turbid (Clear); Bilirubin Urine Negative (Negative); Blood Urine 3+ (Negative); Glucose Urine UA Negative (Negative); Ketones Urine Negative (Negative); Nitrate Urine Positive (Negative); Protein Urine 3+ (Negative); Specific Grav Ur 1.015 (1.010-1.020); Urobilinogen Urine 0.2 mg/dL (0.2-1.0); pH Urine 6.5 (5.0-8.0)
[2023-09-25 12:28] LABS: Add Urine Microscopic? YES; Bacteria Urine 4+ /hpf; Leukocyte Esterase Ur 3+ LEU/UL (Negative); Squamous Epithelial Cell Urine Rare /hpf (Few); WBC Urine >75 /hpf (0-3)
== END 2023-09-25 11:20 | disposition home or self-care (01) ==
LOC: CHSLAB 11:20
PROVIDERS: Visit Provider Nurse Practitioner Family
DX: R39.9 Unspecified symptoms and signs involving the genitourinary system (principal); R82.90 Unspecified abnormal findings in urine
CPT/HCPCS: 81001; 87077; 87086; 87088; 87186

== ENCOUNTER 2023-11-18 13:11 | Observation (INO) | payer MEDICARE, SELFPAY ==
[2023-10-23 10:44] VITALS: BMI 39.6
--- NOTE | 2023-10-23 11:26 | PC.NURSE ---
Patient and Selma reviewed medications and health history. We went over his instructions for arrival on 11/18/2023 at 1200 to registration in the front of the hospital for direct admission. Reviewed process after admission and procedure on 11/19/2023. He knows to be on a clear liquid diet starting 11/18/2023 and nothing red or purple. Informed if there is any questions prior to 11/18/2023 or concerns to please call me at [phone].
[2023-11-18 12:30] VITALS: BP 131/82; PULSE 65; RESP 18; TEMP 36.2; O2SAT 96
[2023-11-18 12:44] VITALS: BMI 38.9
--- NOTE | 2023-11-18 12:50 | ADMGEN ---
This patient, Jag Retana, was admitted to [facility] Surg Room 326-01. Patient/family oriented to hospital policies and general routines including ID bracelet, bed and alarms, visiting hours, pain management, procedures, bathroom and other care routines, personal items, smoking policy, room service/diet, and visiting hours. Information on how to activate the Rapid Response Team has been discussed. Patient/Family are encouraged to report perceived risks to care and to ask questions if they do not understand what they are told or what they should do.
--- NOTE | 2023-11-18 13:25 | PM.IMHP ---
H&P: HPI History of Present Illness Date/Time: 11/18/23 13:25 Chief Complaint: Positive immunochemical test. Narrative: This is a pleasant 73-year-old male with multiple sclerosis, hypertension, hyperlipidemia, prediabetes, pulmonary embolism on chronic anticoagulation, gout, benign prostatic hyperplasia, and anxiety who is being directly admitted for colon prep in anticipation of colonoscopy tomorrow. Last February he had a change in bowel habits with increasing diarrhea and episodes of fecal incontinence. Metamucil has not been of much help; dicyclomine seemed to help somewhat. He was referred to GI and his fecal immunochemical test came back positive. He is being admitted for colon prep as he and his would be unable to do so safely at home as he is wheelchair-bound and lift dependent. He has been off of his apixaban since Saturday. At the time my evaluation he has taken the bowel prep but has yet to have a stool. He has no current complaints and denies fever, chills, sweats, chest pain, shortness a breath, abdominal pain, nausea, and vomiting. He has not noticed any blood in the stool. Weight has been stable. Review of Systems Review of Systems: 12 systems were reviewed and are negative except for as per HPI. [facility] Past Medical History Medical History (Updated 11/18/23 @ 20:29 by Michelle Garcia PA-C) Anxiety Benign prostatic hyperplasia Cerebrovascular accident Chronic anticoagulation Erectile dysfunction Hypertension Multiple sclerosis Prediabetes Pulmonary embolism Surgical History Surgical History History of embolectomy Family History Family History (Updated 11/18/23 @ 13:28 by Michelle Garcia PA-C) Mother Hypertension Brother Hypertension Sister Hypertension Father Malignant neoplasm of prostate Social History Social History (Updated 11/18/23 @ 20:30 by Michelle Garcia PA-C) Social History: Surrogate medical decision maker: Yolis Retana, spouse. Code status: Full code. Smoking packs per day: 0.5 Smoking cigarettes per day: 10.0 Years smoked: 15 Smoking pack-years: 7.50 Smoking status: Former smoker Tobacco type: cigarettes Second hand tobacco smoke exposure: Yes Smoking end date: 10/05/91 Alcohol intake: former Drinks per week: 12 Substance use: never Substance use type: does not use Do You Feel Safe in your Home?: Yes Lack of Transportation: No Lack of Food: Never True Current Housing: I Have Housing Concerned About Future Housing: No Difficulty Paying Gas/Electric Bills: No Difficulty Paying for Meds: No Currently Unemployed: No Education: Master's Degree or Higher Difficulty w/ Childcare or Family Care: No Living arrangements: with family Additional living arrangements comments: Lives with spouse in [place]. 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 Spiritual care concerns: No Meds Home Medications and Allergies Home Medications Medication Instructions Recorded Confirmed Type clonazepam 1 mg tablet 1 mg PO DIRECTED 05/21/19 11/18/23 History tamsulosin 0.4 mg capsule (Flomax) 0.4 mg PO DAILY 05/14/22 10/23/23 History psyllium husk 0.4 gram capsule 0.4 g PO DAILY PRN loose stools 08/15/23 10/23/23 Rx (Metamucil) #30 caps diphenoxylate-atropine 2.5 1 tablet PO TID PRN diarrhea #90 09/18/23 10/23/23 Rx mg-0.025 mg tablet (Lomotil) tabs tirzepatide 7.5 mg/0.5 mL 7.5 mg (0.5 mL) subcut WEEKLY #6 mL 09/23/23 11/18/23 Rx subcutaneous pen injector (Mounjaro) dutasteride 0.5 mg capsule 0.5 mg PO DAILY 10/23/23 11/18/23 History dicyclomine 20 mg tablet 20 mg PO QID PRN loose stools #360 10/28/23 11/18/23 Rx tabs allopurinol 300 mg tablet 300 mg PO DAILY 11/18/23 11/18/23 History amlodipine 10 mg tablet 10 mg PO DAILY 11/18/23 11/18/23 History apixaban 5 mg tablet (Eliquis) 5 mg PO Q12H
[2023-11-18] MEDS: BISACODYL 5 MG TABLET EC 20 MG PO (13:37)
[2023-11-18 14:34] LABS: Alanine Aminotransferase 42 U/L (6-50); Albumin Level 4.2 g/dL (3.5-5.1); Alkaline Phosphatase 71 U/L (38-126); Anion Gap 12 mmol/L (4-12); Aspartate Amino Transferase 33 U/L (17-59); Bilirubin,Total 0.5 mg/dL (0.2-1.3); Blood Urea Nitrogen 14 mg/dL (9-20); Calcium 9.1 mg/dL (8.4-10.2); Carbon Dioxide 25 mmol/L (22-30); Chloride 102 mmol/L (98-107); Estimated CRCL calculation 104 ml/min; Estimated Glomerular Filt Rate > 60; Glucose 87 mg/dL (65-110); Magnesium 2.1 mg/dL (1.6-2.3); Potassium 4.2 mmol/L (3.4-5.0); Sodium 139 mmol/L (137-145)
[2023-11-18] MEDS: clonazePAM (*CRX) 0.5 MG TABLET 1 MG PO (15:58)
[2023-11-18] MEDS: polyethylene glycoL 3350 238 GM BOTTLE PO (15:58)
[2023-11-18 18:10] LABS: Glucose Point of Care 243 mg/dl (65-105)
[2023-11-18] MEDS: INSULIN ASPART (*BKC) 100 UNITS/ML SUB-Q (18:24)
[2023-11-18 20:00] VITALS: PULSE 65; RESP 18; O2SAT 96
[2023-11-18] MEDS: METOPROLOL TARTRATE 25 MG TABLET PO (20:54)
[2023-11-18] MEDS: clonazePAM (*CRX) 0.5 MG TABLET 2 MG PO (20:55)
[2023-11-18 21:46] VITALS: BP 166/102; PULSE 99; RESP 18; TEMP 36.3; O2SAT 93
[2023-11-19] VITALS (8 sets, daily range): BP systolic 95–178; BP diastolic 42–96; PULSE 71–89; RESP 16–27; TEMP 36.1–36.6; O2SAT 94–95
[2023-11-19] MEDS: MAGNESIUM CITRATE 300 ML BTL PO ×2 (02:11→08:00)
[2023-11-19 06:51] LABS: Basophils Absolute Auto 0.1 K/mm3 (0.0-0.1); Basophils Percent Auto 0.7 % (0.2-1.2); Eosinophils Absolute Auto 0.2 K/mm3 (0-0.3); Eosinophils Percent Auto 2.5 % (0-4.4); Hematocrit 46.3 % (42.0-52.0); Hemoglobin 14.7 g/dL (14.0-18.0); Immature Granulocyte Absolute 0.04 K/mm3 (0.00-0.031); Immature Granulocyte Percent A 0.4 % (0-0.5); Lymphocytes Absolute Auto 2.29 K/mm3 (0.9-3.2); Lymphocytes Percent Auto 24.8 % (18.3-44.2); Mean Corpuscular HGB Conc 31.7 g/dl (32-36); Mean Corpuscular Hemoglobin 28.1 pg (26-34); Mean Corpuscular Volume 88.5 fl (80-100); Mean Platelet Volume 10.3 fl (7.4-10.4); Monocytes Absolute Auto 0.7 K/mm3 (0.1-0.6); Monocytes Percent Auto 7.4 % (2.6-8.5); Neutrophils Absolute Auto 5.9 K/mm3 (1.3-6.7); Neutrophils Percent Auto 64.2 % (45.5-73.1); Platelet Count Result 204 k/mm3 (150-375); Red Blood Count 5.23 M/mm3 (4.6-6.20); Red Cell Distribution Width 14.7 % (11.5-14.5); White Blood Count 9.2 K/mm3 (4.5-10.0)
[2023-11-19 06:59] LABS: Anion Gap 10 mmol/L (4-12); Blood Urea Nitrogen 11 mg/dL (9-20); Calcium 8.6 mg/dL (8.4-10.2); Carbon Dioxide 25 mmol/L (22-30); Chloride 103 mmol/L (98-107); Estimated CRCL calculation 104 ml/min; Estimated Glomerular Filt Rate > 60; Glucose 106 mg/dL (65-110); Potassium 3.6 mmol/L (3.4-5.0); Sodium 138 mmol/L (137-145)
--- NOTE | 2023-11-19 07:46 | SUR.PREOP ---
Called the nurse on the floor Wilson RN at 630 regarding pt's prep status. Nurse said he was having soft to liquid brown stools. Instructed Nurse that I would talk with Dr. Randall and call pt's nurse back around 730 with update. [address] Randall regarding's pt's bowel prep results. ordered an additional bottle of Mg Citrate to be given this am. Plans to proceed with colonoscopy this afternoon. 0734 Spoke with Lela Snider RN relayed message on additional bottle of Mg Citrate to be given this am. Mg Citrate order has been placed.
[2023-11-19] MEDS: LIDOCAINE 5% PATCH 1 PATCH TOPICAL (08:00)
[2023-11-19] MEDS: LACTATED RINGERS 1,000 ML 150 ML IV CONT (10:50)
[2023-11-19 10:52] LABS: Glucose Point of Care 110 mg/dl (65-105)
--- NOTE | 2023-11-19 11:00 | WPDANESEPPF ---
Anes - Initial Pre Proc Eval Procedure: Operation Date: 11/19/23 14:00 Proposed Procedures p Colonoscopy - Marc Smallwood MD Date/Time: 11/19/23 11:00 Surgeon: Tammy Ramsey APRN Pre Op Diagnosis: Positive FIT Test/Colon Prep Patient Data Age: 73 Gender: M Height: 1.85 m Weight: 134 kg Last Vital Signs Temp 97.5 F L 11/19/23 10:48 Pulse 85 11/19/23 10:48 Resp 20 11/19/23 10:48 BP 133/65 11/19/23 10:48 Pulse Ox 95 11/19/23 10:48 O2 Del Method Room Air 11/19/23 10:48 Allergies Allergy/AdvReac Type Severity Reaction Status Date / Time diclofenac [Cataflam] Allergy Intermediate hypertensio Verified 11/19/23 10:44 n oseltamivir [Tamiflu] Allergy Intermediate Delusions Verified 11/19/23 10:44 Home Medications Medication Instructions Recorded Confirmed Type clonazepam 1 mg tablet 1 mg PO DIRECTED 05/21/19 11/18/23 History tamsulosin 0.4 mg capsule (Flomax) 0.4 mg PO DAILY 05/14/22 10/23/23 History psyllium husk 0.4 gram capsule 0.4 g PO DAILY PRN loose stools 08/15/23 10/23/23 Rx (Metamucil) #30 caps diphenoxylate-atropine 2.5 1 tablet PO TID PRN diarrhea #90 09/18/23 10/23/23 Rx mg-0.025 mg tablet (Lomotil) tabs tirzepatide 7.5 mg/0.5 mL 7.5 mg (0.5 mL) subcut WEEKLY #6 mL 09/23/23 11/18/23 Rx subcutaneous pen injector (Mounjaro) dutasteride 0.5 mg capsule 0.5 mg PO DAILY 10/23/23 11/18/23 History dicyclomine 20 mg tablet 20 mg PO QID PRN loose stools #360 10/28/23 11/18/23 Rx tabs allopurinol 300 mg tablet 300 mg PO DAILY 11/18/23 11/18/23 History amlodipine 10 mg tablet 10 mg PO DAILY 11/18/23 11/18/23 History apixaban 5 mg tablet (Eliquis) 5 mg PO Q12H 11/18/23 11/18/23 History atorvastatin 20 mg tablet 20 mg PO DAILY 11/18/23 11/18/23 History duloxetine 30 mg capsule,delayed 30 mg PO DAILY 11/18/23 11/18/23 History release lidocaine 5 % topical patch 1 patch topical DAILY 11/18/23 11/18/23 History lisinopril 40 mg tablet 40 mg PO DAILY 11/18/23 11/18/23 History metoprolol tartrate 25 mg tablet 25 mg PO Q12H 11/18/23 11/18/23 History Laboratory Tests 11/18/23 11/18/23 11/19/23 13:44 18:07 06:05 WBC 9.2 K/mm3 (4.5-10.0) RBC 5.23 M/mm3 (4.6-6.20) Hgb 14.7 g/dL (14.0-18.0) Hct 46.3 % (42.0-52.0) MCV 88.5 fl (80-100) MCH 28.1 pg (26-34) MCHC 31.7 L g/dl (32-36) RDW 14.7 H % (11.5-14.5) Plt Count 204 k/mm3 (150-375) MPV 10.3 fl (7.4-10.4) Immature Gran % (Auto) 0.4 % (0-0.5) Neut % (Auto) 64.2 % (45.5-73.1) Lymph % (Auto) 24.8 % (18.3-44.2) [place] % (Auto) 7.4 % (2.6-8.5) Eos % (Auto) 2.5 % (0-4.4) Baso % (Auto) 0.7 % (0.2-1.2) Lymph # (Auto) 2.29 K/mm3 (0.9-3.2) [place] # (Auto) 0.7 H K/mm3 (0.1-0.6) Eos # (Auto) 0.2 K/mm3 (0-0.3) Baso # (Auto) 0.1 K/mm3 (0.0-0.1) Abs Immat Gran (auto) 0.04 H K/mm3 (0.00-0.031) Absolute Neuts (auto) 5.9 K/mm3 (1.3-6.7) Absolute Nucleated RBC 0.000 K/mm3 (0.0-0.012) Nucleated RBC % 0.0 % (0.0-0.2) Sodium 139 mmol/L 138 mmol/L (137-145) (137-145) Potassium 4.2 mmol/L 3.6 mmol/L (3.4-5.0) (3.4-5.0) Chloride 102 mmol/L 103 mmol/L (98-107) (98-107) Carbon Dioxide 25 mmol/L 25 mmol/L (22-30) (22-30) Anion Gap 12 mmol/L 10 mmol/L (4-12) (4-12) BUN 14 mg/dL 11 mg/dL (9-20) (9-20) Creatinine 0.80 mg/dL 0.80 mg/dL (0.7-1.3) (0.7-1.3) Estim Creat Clear Calc 104 ml/min 104 ml/min Estimated GFR > 60 > 60 (59 - ) (59 - ) Glucose 87 mg/dL 106 mg/dL (65-110) (65-110) POC Capillary Glucose 243 H mg/dl (65-105) Hemoglobin A1c 6.0 H % (<5.7) Calcium 9.1 mg/dL 8.6 mg/dL (8.4-10.2) (8.4-10.2) Magn
--- NOTE | 2023-11-19 11:23 | WPDGICN ---
Assessment and Plan Assessment and plan (1) Positive fecal immunochemical test: Code(s): R19.5 - Other fecal abnormalities Status: Acute Assessment and Plan: already completed bowel prep, will proceed with colonoscopy today (2) Type 2 diabetes mellitus: Code(s): E11.9 - Type 2 diabetes mellitus without complications Status: Acute (3) Chronic anticoagulation: Code(s): Z79.01 - terminal make up operator (current) use of anticoagulants Status: Acute Assessment and Plan: rachel has been on hold in preparation for colonoscopy (4) Multiple sclerosis: Code(s): G35 - Multiple sclerosis Status: Acute Assessment and Plan: needs full care (5) HTN (hypertension): Qualifiers: Hypertension type: essential hypertension Qualified Code(s): I10 - Essential (primary) hypertension Code(s): I10 - Essential (primary) hypertension Status: Acute GI Consult Note Consult date/time: 11/19/23 11:23 Reason for consult: FIT + HPI: Jag Retana is a 73 year old male with multiple sclerosis, hypertension, hyperlipidemia, prediabetes, pulmonary embolism on chronic anticoagulation, gout, benign prostatic hyperplasia, and anxiety who is was directly admitted for colon prep in anticipation of colonoscopy, he never had one. Last February had change in bowel habits with increasing diarrhea and episodes of fecal incontinence, metamucil did not help, he also tried bentyl, finally had + FIT and now is here for colonoscopy, he is wheelchair-bound and lift dependent therefore admitted to complete his bowel prep here. Review of Systems Constitutional: Comments: chronic weakness Eyes: Eyes: Denies blurry vision ENT: Reports Normal hearing present Cardiovascular: Cardiovascular: Denies chest pain Respiratory: Respiratory: Denies cough Gastrointestinal: Gastrointestinal: Denies abdominal pain Musculoskeletal: Musculoskeletal: Denies neck pain Integumentary/Breasts: Skin/Breast: Denies rash Neurologic: Comments: h/o MS Psychiatric: Psychiatric: Denies behavioral changes [facility] Past Medical History Medical History Anxiety Benign prostatic hyperplasia Cerebrovascular accident Chronic anticoagulation Erectile dysfunction Hypertension Multiple sclerosis Prediabetes Pulmonary embolism Surgical History Surgical History History of embolectomy Family History Family History Mother Hypertension Brother Hypertension Sister Hypertension Father Malignant neoplasm of prostate Social History Social History Social History: Surrogate medical decision maker: Yolis Retana, spouse. Code status: Full code. Smoking packs per day: 0.5 Smoking cigarettes per day: 10.0 Years smoked: 15 Smoking pack-years: 7.50 Smoking status: Former smoker Tobacco type: cigarettes Second hand tobacco smoke exposure: Yes Smoking end date: 10/05/91 Alcohol intake: former Drinks per week: 12 Substance use: never Substance use type: does not use Do You Feel Safe in your Home?: Yes Lack of Transportation: No Lack of Food: Never True Current Housing: I Have Housing Concerned About Future Housing: No Difficulty Paying Gas/Electric Bills: No Difficulty Paying for Meds: No Currently Unemployed: No Education: Master's Degree or Higher Difficulty w/ Childcare or Family Care: No Living arrangements: with family Additional living arrangements comments: Lives with spouse in [place]. 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 Spiritual care concerns: No Meds Home Medications and Allergies Home Medications Medication Instruction
--- NOTE | 2023-11-19 12:41 | PM.IMPN ---
Progress Note: A&P Assessment and Plan (1) Positive fecal immunochemical test: Code(s): R19.5 - Other fecal abnormalities Status: Acute Assessment and Plan: 11/19/23: GI consulted Colonoscopy today revealed a single polyp that was removed and sent for cytology Plan for discharge in 20 (2) Change in bowel habit: Code(s): R19.4 - Change in bowel habit Status: Acute Assessment and Plan: see above (3) Multiple sclerosis: Code(s): G35 - Multiple sclerosis Status: Acute Assessment and Plan: 11/21/23: Wheelchair bound (4) Hypertension: Code(s): I10 - Essential (primary) hypertension Status: Acute Assessment and Plan: 11/19/23: Home meds restarted (5) Anxiety: Code(s): F41.9 - Anxiety disorder, unspecified Status: Acute Assessment and Plan: 11/19/23: Restarted home meds (6) Benign prostatic hyperplasia: Code(s): N40.0 - Benign prostatic hyperplasia without lower urinary tract symptoms Status: Acute Assessment and Plan: 11/19/23: Restarted home meds Subjective Date/time seen: 11/19/23 12:41 Interval history: This is a 73-year-old male who presented to the hospital with positive immunochemical test and was directly admitted for colon prep and colonoscopy. Colonoscopy was performed today and showed 1 polyp that was removed and sent off for cytology. He denies any fever, chills, nausea, vomiting, diarrhea, abdominal pain, chest pain, shortness a breath. He has not had any bloody stools or bloody emesis. Review of Systems Review of Systems: 12 systems were reviewed and are negative except for as per HPI. All systems reviewed & are unremarkable except as noted in HPI and below Constitutional: Constitutional: Reports as per HPI and Reports no additional constitutional complaints Eyes: Eyes: Reports as per HPI and Reports no additional eye complaints ENT: Reports system reviewed and no additional complaints, except as documented and Reports as per HPI Cardiovascular: Cardiovascular: Reports as per HPI and Reports no additional cardiovascular complaints Respiratory: Respiratory: Reports as per HPI and Reports no additional respiratory complaints Gastrointestinal: Gastrointestinal: Reports as per HPI and Reports no additional gastrointestinal complaints Genitourinary: Genitourinary: Reports no additional male genitourinary complaints and Reports as per HPI Musculoskeletal: Musculoskeletal: Reports no additional musculoskeletal complaints and Reports as per HPI Integumentary/Breasts: Skin/Breast: Reports system reviewed and no additional complaints, except as docu and Reports as per HPI Neurologic: Reports system reviewed and no additional complaints, except as documented and Reports as per HPI Psychiatric: Psychiatric: Reports no additional psychiatric complaints and Reports as per HPI Exam Narrative: General: In no acute distress, well nourished Head: atraumatic, no encephalopathy Eyes: EOMI, PERRLA, sclera clear ENT: moist mucous membranes, nasal passages clear Neck: supple, no JVD, no adenopathy, trachea midline Cardiac: Normal S1 and S2. murmur noted, no gallops or friction rubs, peripheral pulses intact. Respiratory: Lungs clear to auscultation, no adventitious lung sounds, currently on room air Gastrointestinal: soft, non-distended, non-tender, normoactive bowel sounds. : voiding without difficulty. Extremities: moves all extremities well, mild edema BLE Skin: clean, dry, intact. No wounds or lesions. Neuro: Alert and oriented x4, cranial nerves intact, no neuro deficits. Psych: normal mood, normal affect, interactive Objective Data Vital Signs Vital Signs: Vital Signs - 24 hr 11/18/23 14:00 11/18/23 20:00 11/18/23 21:46 Temperature 97.3 F L Pulse Rate 65 99 Respiratory Rate 18 18 Blood Pressure 166/102 H Pulse Oximetry 96 93 Oxygen Delivery Room Air Room
[2023-11-19 12:53] LABS: Glucose Point of Care 101 mg/dl (65-105)
[2023-11-19] MEDS: DUTASTERIDE 0.5 MG CAPSULE PO (13:14)
[2023-11-19] MEDS: ATORVASTATIN 20 MG TABLET PO (13:14)
[2023-11-19] MEDS: lisinopriL 20 MG TABLET 40 MG PO (13:14)
[2023-11-19] MEDS: allopurinoL 300 MG TABLET PO (13:15)
[2023-11-19] MEDS: METOPROLOL TARTRATE 25 MG TABLET PO ×2 (13:15→20:04)
[2023-11-19] MEDS: amLODIPine BESYLATE 10 MG TABLET PO (13:15)
[2023-11-19] MEDS: DULoxetine HCL 30 MG CAPSULE.DR PO (13:15)
[2023-11-19] MEDS: TAMSULOSIN HCL 0.4 MG CAPSULE PO (13:16)
[2023-11-19] MEDS: clonazePAM (*CRX) 0.5 MG TABLET 2 MG PO (20:05)
[2023-11-19 21:06] LABS: Glucose Point of Care 127 mg/dl (65-105)
[2023-11-20 06:00] VITALS: BP 128/76; PULSE 71; RESP 18; TEMP 37.1; O2SAT 92
[2023-11-20] MEDS: ATORVASTATIN 20 MG TABLET PO (08:43)
[2023-11-20] MEDS: TAMSULOSIN HCL 0.4 MG CAPSULE PO (08:43)
[2023-11-20] MEDS: DUTASTERIDE 0.5 MG CAPSULE PO (08:43)
[2023-11-20] MEDS: lisinopriL 20 MG TABLET 40 MG PO (08:43)
[2023-11-20 08:44] VITALS: PULSE 80
[2023-11-20] MEDS: METOPROLOL TARTRATE 25 MG TABLET PO (08:44)
[2023-11-20] MEDS: amLODIPine BESYLATE 10 MG TABLET PO (08:44)
[2023-11-20] MEDS: LIDOCAINE 5% PATCH 1 PATCH TOPICAL (08:44)
[2023-11-20] MEDS: allopurinoL 300 MG TABLET PO (08:44)
[2023-11-20] MEDS: DULoxetine HCL 30 MG CAPSULE.DR PO (08:44)
--- NOTE | 2023-11-20 11:09 | PM.DS ---
DS: Admitting Diagnosis Discharge Date 11/20/23: Admitting Diagnosis Positive fecal immunochemical test Change in bowel habits Multiple sclerosis Hypertension Chronic anticoagulation Anxiety BPH DS: Discharge Diagnosis Discharge Diagnosis (1) Positive fecal immunochemical test: Code(s): R19.5 - Other fecal abnormalities Status: Acute (2) Change in bowel habit: Code(s): R19.4 - Change in bowel habit Status: Acute (3) Multiple sclerosis: Code(s): G35 - Multiple sclerosis Status: Acute (4) Hypertension: Code(s): I10 - Essential (primary) hypertension Status: Acute (5) Anxiety: Code(s): F41.9 - Anxiety disorder, unspecified Status: Acute (6) Benign prostatic hyperplasia: Code(s): N40.0 - Benign prostatic hyperplasia without lower urinary tract symptoms Status: Acute DS: Summary Hospital Course Reason for hospitalization: Positive fecal immunochemical test Change in bowel habits Multiple sclerosis Hypertension Chronic anticoagulation Anxiety BPH Hospital Course: This is a 73-year-old male who presented to the hospital with positive immunochemical test and was directly admitted for colon prep and colonoscopy. Colonoscopy was performed today and showed 1 polyp that was removed and sent off for cytology. He denies any fever, chills, nausea, vomiting, diarrhea, abdominal pain, chest pain, shortness a breath. He has not had any bloody stools or bloody emesis. Today vital signs are stable, he is currently on room air, he is afebrile. He is stable for discharge at this time. He will need to follow up with GI in 2 weeks. Final diagnosis: Positive fecal immunochemical test Status at Discharge Cognitive/behavioral status at discharge: Alert oriented x3 Functional status at discharge: wheelchair bound Overall status at discharge: patient is progressing back to baseline Time Spent with Patient Time attestation: Total time spent providing and/or coordinating discharge services: Time spent: Greater than 30 minutes Exam Narrative: General: In no acute distress, well nourished Cardiac: Normal S1 and S2. murmur noted, no gallops or friction rubs, peripheral pulses intact. Respiratory: Lungs clear to auscultation, no adventitious lung sounds, currently on room air Gastrointestinal: soft, non-distended, non-tender, normoactive bowel sounds. Neuro: Alert and oriented x4 DS: Data Data Completed and Pending Completed studies during hospitalization: Pending at discharge 11/19/23 12:00 Surgical [PTH] Routine Pending studies at discharge: None Labs on day of discharge: Labs from last 24 hours 11/19/23 11/19/23 20:22 12:50 POC Capillary Glucose 127 H 101 Procedures/Treatments: Colonoscopy Discharge Plan Discharge Attending physician on discharge: Nava Garcia Consulting providers: Tammy Ramsey Discharging Clinician: Tammy Ramsey Anticipated Discharge Date/Time: 11/20/23 11:07 Patient Disposition: Home, Self-Care Activity: as tolerated Diet: as tolerated Discharge Instructions: Follow up with GI in 2 weeks. Patient Language: Nepali Stand Alone Forms: General Discharge Information Follow-up/Referrals: Kiara Ann APRN [Advanced Practice Nurse] - 2 Weeks Discharge Medications: Continued clonazepam 1 mg tablet 1 mg PO DIRECTED Rx Instructions: 1 MG MID DAY AND 2 MG HS psyllium husk [Metamucil] 0.4 gram capsule 0.4 g PO DAILY PRN (Reason: loose stools) Qty: 30 0RF tamsulosin [Flomax] 0.4 mg capsule 0.4 mg PO DAILY diphenoxylate-atropine [Lomotil] 2.5-0.025 mg tablet 1 tablet PO TID PRN (Reason: diarrhea) Qty: 90 5RF dutasteride 0.5 mg capsule 0.5 mg PO DAILY atorvastatin 20 mg tablet 20 mg PO DAILY amlodipine 10 mg tablet 10 mg PO DAILY lidocaine 5 % adhesive patch,medicated 1 patch topical DAILY
[2023-11-20 11:48] LABS: Glucose Point of Care 90 mg/dl (65-105)
[2023-11-20] MEDS: clonazePAM (*CRX) 0.5 MG TABLET 1 MG PO (12:33)
[2023-11-20 14:00] VITALS: BP 108/52; PULSE 76; RESP 20; TEMP 36.1; O2SAT 93
== END 2023-11-20 14:55 | disposition home or self-care (01) ==
PROVIDERS: Internal Medicine Gastroenterology; Physician Assistant; Absent Provider Internal Medicine; Admitting Provider Internal Medicine; PCP Nurse Practitioner Family; Referring Provider Nurse Practitioner; Visit Provider Nurse Practitioner Acute Care
PROC: 0DJD8ZZ Inspection of Lower Intestinal Tract, Via Natural or Artificial Opening Endoscopic (ICD-10-PCS; CPT 45378; principal; 2023-11-19 14:00)
DX: D12.2 Benign neoplasm of ascending colon (principal); K57.30 Diverticulosis of large intestine without perforation or abscess without bleeding; G35 Multiple sclerosis; I10 Essential (primary) hypertension; E78.5 Hyperlipidemia, unspecified; R73.03 Prediabetes; M10.9 Gout, unspecified; N40.0 Benign prostatic hyperplasia without lower urinary tract symptoms; F41.9 Anxiety disorder, unspecified; Z86.711 Personal history of pulmonary embolism; Z86.73 Personal history of transient ischemic attack (TIA), and cerebral infarction without residual deficits; Z87.891 Personal history of nicotine dependence; Z79.85 Long-term (current) use of injectable non-insulin antidiabetic drugs; Z79.01 Long term (current) use of anticoagulants
CPT/HCPCS: 45385; 36415; 80048; 80053; 82948; 83036; 83735; 85025; 88305; A9270; G0378; G0379; J1815; J2704; J7120

== ENCOUNTER 2024-02-06 16:20 | Emergency (ER) | payer MEDICARE, SELFPAY ==
--- NOTE | ~2024-02-06 | XR_ITS ---
EXAMINATION: XR chest 1V portable DATE: 02/06/2024 17:28 INDICATION: Cough and congestion. TECHNIQUE: A single frontal view of the chest was obtained on 2 radiographs. COMPARISON: Chest single view 04/08/2022, chest CT 06/19/2018 FINDINGS: There is mild atelectasis in the mid and lower lung zones. No pleural effusion or pneumotho rax. The heart size is normal. IMPRESSION: 1. Mild atelectasis in right mid and lower lung zones. Reviewed, dictated and finalized at location A.
[2024-02-06 16:28] VITALS: BP 133/60; PULSE 90; RESP 20; TEMP 37.2; O2SAT 92
[2024-02-06 16:33] VITALS: O2SAT 90
--- NOTE | 2024-02-06 17:07 | PC.NURSE ---
arnel Pinzon, administered covid test and sent to lab
[2024-02-06 17:10] VITALS: PULSE 84; RESP 20; O2SAT 93
[2024-02-06] MEDS: IPRATROPIUM 0.5 MG/ALBUTEROL SULFATE 2.5 MG AMPUL.NEB 3 ML INHALATION (17:12)
[2024-02-06 17:15] LABS: Basophils Absolute Auto 0.03 K/mm3 (0.00-0.10); Basophils Percent Auto 0.4 % (0.0-1.0); Eosinophils Absolute Auto 0.04 K/mm3 (0.02-0.50); Eosinophils Percent Auto 0.5 % (1.0-6.0); Hemoglobin 14.6 g/dL (12.4-15.3); Immature Granulocyte Absolute 0.04 K/mm3 (0.00-0.00); Immature Granulocyte Percent A 0.5 % (0.0-0.0); Lymphocytes Absolute Auto 0.81 K/mm3 (1.10-4.50); Lymphocytes Percent Auto 10.8 % (18.0-42.0); Mean Corpuscular HGB Conc 33.2 g/dL (32-36); Mean Corpuscular Hemoglobin 28.6 pg (27.0-31.0); Mean Corpuscular Volume 86.3 fL (78.0-102.0); Mean Platelet Volume 9.5 fl (8.7-11.0); Monocytes Absolute Auto 0.51 K/mm3 (0.10-0.90); Monocytes Percent Auto 6.8 % (2.0-11.0); Neutrophils Absolute Auto 6.09 K/mm3 (1.70-7.20); Platelet Count Result 182 K/mm3 (150-420); Red Cell Distribution Width 14.2 % (11.6-14.4); White Blood Count 7.5 K/mm3 (4.8-10.8)
[2024-02-06 17:16] VITALS: PULSE 84; RESP 20; O2SAT 93
[2024-02-06 17:32] LABS: Alanine Aminotransferase 25 U/L (16-63); Alkaline Phosphatase 74 U/L (46-116); Anion Gap 7 mmol/L (4-12); Aspartate Amino Transferase 21 U/L (15-37); Bilirubin,Total 0.5 mg/dL (0.00-1.00); Blood Urea Nitrogen 13 mg/dL (7-18); Calcium 8.7 mg/dL (8.5-10.1); Carbon Dioxide 29 mmol/L (21-32); Chloride 101 mmol/L (98-108); Estimated CRCL calculation 86 ml/min; Estimated Glomerular Filt Rate > 60; Glucose 107 mg/dL (70-99); Osmolality Calculated 284 mOsm/kg (285-295); Sodium 137 mmol/L (136-145); Total Protein 7.3 g/dL (6.4-8.2)
[2024-02-06 17:55] LABS: Influenza A QL RT-PCR Negative (Negative); Influenza B QL RT-PCR Negative (Negative); RSV RNA, RT-PCR Negative (Negative); SARS-CoV-2 RNA PCR Positive (Negative)
--- NOTE | 2024-02-06 18:08 | ED.URI ---
HPI - URI/Sore Throat General Chief Complaint: Upper Respiratory Infection Stated Complaint: generalized weakness; sickness Source: patient and family Mode of arrival: EMS Limitations: no limitations History of Present Illness HPI Narrative: this is a 73-year-old male brought in by EMS with some cough congestion no fever chills has a history of MS. Patient called EMS because having generalized weakness, has a history of stroke with right-sided residual cough is productive yellow white sputum with no sore throat no abdominal pain no nausea vomiting. MD elicited complaint: cough, rhinorrhea and nasal congestion Onset (ago): day(s) Consistency: constant Severity: mild Related Data Home Medications Medication Instructions Recorded Confirmed clonazepam 1 mg tablet 1 mg PO DIRECTED 05/21/19 11/18/23 tamsulosin 0.4 mg capsule (Flomax) 0.4 mg PO DAILY 05/14/22 10/23/23 dutasteride 0.5 mg capsule 0.5 mg PO DAILY 10/23/23 11/18/23 allopurinol 300 mg tablet 300 mg PO DAILY 11/18/23 11/18/23 amlodipine 10 mg tablet 10 mg PO DAILY 11/18/23 11/18/23 apixaban 5 mg tablet (Eliquis) 5 mg PO Q12H 11/18/23 11/18/23 atorvastatin 20 mg tablet 20 mg PO DAILY 11/18/23 11/18/23 duloxetine 30 mg capsule,delayed 30 mg PO DAILY 11/18/23 11/18/23 release lisinopril 40 mg tablet 40 mg PO DAILY 11/18/23 11/18/23 metoprolol tartrate 25 mg tablet 25 mg PO Q12H 11/18/23 11/18/23 Allergies Allergy/AdvReac Type Severity Reaction Status Date / Time diclofenac [Cataflam] Allergy Intermediate hypertensio Verified 11/19/23 10:44 n oseltamivir [Tamiflu] Allergy Intermediate Delusions Verified 11/19/23 10:44 Review of Systems Review of Systems: All systems reviewed & are unremarkable except as noted in HPI and below PMFSH Past Medical History Medical History Anxiety Benign prostatic hyperplasia Cerebrovascular accident Chronic anticoagulation Erectile dysfunction Hypertension Multiple sclerosis Prediabetes Pulmonary embolism Surgical History Surgical History History of embolectomy Family History Family History Mother Hypertension Brother Hypertension Sister Hypertension Father Malignant neoplasm of prostate Social History Social History Social History: Surrogate medical decision maker: Yolis Retana, spouse. Code status: Full code. Smoking packs per day: 0.5 Smoking cigarettes per day: 10.0 Years smoked: 15 Smoking pack-years: 7.50 Smoking status: Former smoker Tobacco type: cigarettes Second hand tobacco smoke exposure: Yes Smoking end date: 10/05/91 Alcohol intake: former Drinks per week: 12 Substance use: never Substance use type: does not use Do You Feel Safe in your Home?: Yes Lack of Transportation: No Lack of Food: Never True Current Housing: I Have Housing Concerned About Future Housing: No Difficulty Paying Gas/Electric Bills: No Difficulty Paying for Meds: No Currently Unemployed: No Education: Master's Degree or Higher Difficulty w/ Childcare or Family Care: No Living arrangements: with family Additional living arrangements comments: Lives with spouse in [place]. 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 Spiritual care concerns: No Exam Const: General: healthy appearing, no acute distress and alert Nutritional Appearance: well nourished Limitations: no limitations HENMT: Head: normal to inspection Eyes: Conjunctivae: conjunctivae normal Neck: Neck: normal visual inspection, no lymphadenopathy and no meningeal signs Resp: Effort & Inspection: normal respiratory effort Cardio: Rate: regular rate Rhythm: regular rhythm GI: GI Palp: Yes Soft to palpation Auscultation: n
[2024-02-06 18:59] VITALS: BP 169/81; PULSE 80; RESP 20; TEMP 37.3; O2SAT 93
== END 2024-02-06 19:15 | disposition home or self-care (01) ==
PROVIDERS: Emergency Provider Emergency Medicine; PCP Nurse Practitioner Family
DX: U07.1 COVID-19 (principal); I10 Essential (primary) hypertension; G35 Multiple sclerosis; Z87.891 Personal history of nicotine dependence
CPT/HCPCS: 36415; 71045; 80053; 85025; 87637; 94640; 99283

== ENCOUNTER 2024-02-27 08:24 | Outpatient (NON) | payer MEDICARE, SELFPAY ==
[2024-02-27 08:31] LABS: Add Urine Microscopic? YES; Appearance Urine Sl Cloudy (Clear); Bilirubin Urine Negative (Negative); Blood Urine Negative (Negative); Color Urine Light Yellow (Yellow); Glucose Urine UA Negative (Negative); Ketones Urine Negative (Negative); Leukocyte Esterase Ur Negative LEU/UL (Negative); Nitrate Urine Negative (Negative); Protein Urine Trace (Negative); Urobilinogen Urine 0.2 mg/dL (0.2-1.0); pH Urine 6.5 (5.0-8.0)
[2024-02-27 08:48] LABS: Bacteria Urine 2+ /hpf; RBC Urine 0-2 /hpf (0-2); Squamous Epithelial Cell Urine Few /hpf (Few)
== END 2024-02-27 08:25 | disposition home or self-care (01) ==
LOC: CHSLAB 08:24
PROVIDERS: PCP Nurse Practitioner Family; Visit Provider Nurse Practitioner Family
DX: Z87.898 Personal history of other specified conditions (principal)
CPT/HCPCS: 81001

== ENCOUNTER 2024-12-09 16:00 | Outpatient (CLI) | payer MEDICARE, SELFPAY ==
--- OUTSIDE RECORDS SUMMARY | 2024-12-09 16:04 | XMS_ITS ---
Author Organization [facility] Address [address] [place], [place] [id number] Care Team Providers Care Hog Trader Name Role Phone DERIC BARKSDALE Unavailable [phone] Winnie Turner Unavailable Unavailable MARY MURDOCK Unavailable [phone] REASON FOR VISIT *General care Encounters Encounter Location Date Provider Diagnosis [address] [id number] 09/10/2024 MARY MURDOCK Plan Of Treatment Next Appt Details Provider Name:MARY CAMARILLO, 12/24/2024 01:10:00 PM, [address] [place] [address], [id number], Progress Notes * CARINA NICHOLAS MDOB: 2 (74 yo M)Acc No.[id number]:09/10/2024 Patient: CARINA PANDYA Provider: Phuong MURDOCK :1950 A ge:74 Y S ex:Male Date:09/10/2024 Address:[address] [place], [place] [id number] Subjective: * Chief Complaints: * 1 . *General care. * Medical History: Objective: * Vitals: Assessment: Plan: * Treatment: * Billing Information: * Visit Code: * Procedure Codes: * Electronic signature of ZACARIAS MURDOCK DPM on 12/09/2024 at 04:03 PM CDT Sign off status: Pending * Provider: Phuong MURDOCK Date: 0 09/10/2024 Generated for Cornelia russ/Bam/Daphne on: 0 12/09/2024 04:03 PM CDT
--- OUTSIDE RECORDS SUMMARY | 2024-12-09 16:04 | XMS_ITS | Clinical Summary ---
Author Organization [facility] Address [address] [place] [address] Care Team Providers Care Jewelry Department Supervisor Name Role Phone Vish Rodriguez MD Unavailable [phone] Winnie Turner ASSOCIATE PROFESSOR OF MEDICINE Primary Care Provider [phone] Allergies Active Allergy Reactions Criticality Noted Date Comments Bee Venom Swelling 06/20/2018 Carbamazepine Unknown 06/20/2018 Diclofenac Other (see comment) 10/20/2024 Hypertension Oseltamivir Hallucinations 06/20/2018 Medications allopurinol 300 MG tablet Take 300 mg by mouth daily. 1 9 Active apixaban 5 MG tablet Take 2 tablets (10 mg total) by mouth 2 (two) times daily. 60 tablet 9 Active Additional Information Patient taking differently: 5 mgOral 2 times daily, Reported on 10/20/2024 finasteride 5 MG tablet Take 1 tablet (5 mg total) by mouth daily. 30 tablet 9 Active tamsulosin 0.4 MG Cap Take 1 capsule (0.4 mg total) by mouth daily. 30 capsule 9 Active Cholecalciferol (VITAMIN D) 2000 units Tab Take 2,000 Units by mouth. Active Glucosa-Chondr- Na Chondr-MSM (GLUCOSAMINE-CH ONDROITIN-MSM) 812-736-114-83 MG Tab Take 1 tablet by mouth. Active multivitamin tablet Take 1 tablet by mouth. Active metoprolol tartrate 25 MG tablet TAKE 1 TABLET BY MOUTH TWICE A DAY FOR 90 DAYS 1 Active tiZANidine 4 MG tablet TAKE 1 TABLET BY MOUTH EVERY 8 HOURS NEEDED FOR MUSCLE SPASMS 1 Active clonazePAM 1 MG tablet TAKE 1 TABLET BY MOUTH DAILY AFTER LUNCH AND 2 TABLETS NIGHTLY. 1 Active sulfamethoxazol e-trimethoprim 800-160 MG tablet TAKE ONE TABLET BY MOUTH EVERY 12 HOURS FOR 30 DAYS 1 Active lisinopril 40 MG tablet Take 40 mg by mouth daily. 1 Active lidocaine 5 % APPLY 1 PATCH TOPICAL DAILY 1 Active DULoxetine 30 MG capsule Take 1 capsule (30 mg total) by mouth daily. 1 Active atorvastatin 20 MG tablet Take 20 mg by mouth daily. 1 Active amLODIPine 10 MG tablet Take 1 tablet (10 mg total) by mouth daily. 1 Active acetaminophen (TYLENOL) 500 MG tablet Take 1,000 mg by mouth every 6 (six) hours as needed for Pain. Active Artificial Saliva (THERABREATH DRY MOUTH) Lozenge As directed Active [place]-3 Fatty Acids (EQL OMEGA 3 FISH OIL) 1200 MG Cap Take 2 capsules by mouth daily. Active CALCIUM-VITAMIN D OR Take 2 capsules by mouth daily. Active Active Problems Problem Noted Date Diagnosed Date Snoring 11/17/2024 Class 2 obesity due to exces s calories without serious comorbidity with body mass index (BMI) of 39.0 to 39.9 in adult 11/17/2024 History of deep vein thrombosis 07/30/2018 Essential hypertension 07/30/2018 Pulmonary embolism ([facility]) 06/20/2018 Acute massive pulmonary embolism ([facility]/ C) 06/20/2018 Multiple sclerosis ([facility]) 11/21/2010 Encounters Date Type Department Care Team Description 11/20/2024 Telephone [facility] [place] [address] [place] [address] Vish Rodriguez MD Schedule Test 11/17/2024 3:45 PM CDT [facility] [address] [place] [address] Vish Rodriguez MD Coronary Artery Disease 11/17/2024 3:12 PM CDT - 11/17/2024 11:59 PM CDT Hospital Encounter [facility] [address] [place] [address] Vish Rodriguez MD Discharge Disposition: Home or Self Care (Routine Discharge) 11/17/2024 Travel 11/16/2024 Telephone [facility] [address] [place] [address] Vish Rodriguez MD Appointment Reminder 11/05/2024 Orders Only [facility] [address] [place] [address] Vish Rodriguez MD 10/20/2024 Abstract [facility] [address] [place] [address] Abstract, Doc Pccl 10/19/2024 Telephone [facility] [address] [place] [address] Vish Rodriguez MD Appointment Request from Last 3 Months Family History Medical History Relation Comments Hypertension Brother Clotting Disorder Father Prostate Cancer Father Heart Disease Mother Hypertension Mother Hypertension Sister Relation Status Comments Brother Father Mother Alive Sister Social History Tobacco Use Types Packs/Day Years Used Date Smoking Tobacco: Former Smokeless Tobacco: Never Alcohol Use Standard Drinks/Week Comments No 0 (1 standard drink = 0.6 oz pur e alcohol) AUDIT-C Answer Date Recorded Frequency of Alcohol Consumption Never 06/20/2018 Average Number of Drinks Not on file 019 Frequency of Binge Drinking Not on file 06/06 Sex and Gender Information Value Date Recorded Sex Assigned at Male 06/20/2018 4:03 AM UTILIZATION MANAGER Legal Sex Male 12:24 AM UTILIZATION MANAGER Gender Identity Male 06/20/2018 4:03 AM UTILIZATION MANAGER Sexual Orientation Straight 06/20/2018 4: 03 AM UTILIZATION MANAGER Last Filed Vital Signs Vital Sign Reading Time Taken Comments Blood Pressure 125/86 11/17/2024 3:43 PM CDT Pulse 72 11/17/2024 3:43 PM CDT Temperature 36.6 C (97.9 F) 06/25/2018 12:50 PM UTILIZATION MANAGER Respiratory Rate 18 11/17/2024 3:43 PM CDT Oxygen Saturation 96% 11/17/2024 3:43 PM CDT Inhaled Oxygen Concentration - - Weight 136.1 kg (300 lb) 11/17/2024 3:43 PM CDT Height 185.4 cm (6' 1) 11/17/2024 3:43 PM CDT Body Mass Index 39.58 11/17/2024 3:43 PM CDT Plan of Treatment Upcoming Encounters Date Type Department Care Team (Late st Contact Info) Description 12/18/2024 3:[address] [facility] [address] [place] [address] Vish Rodriguez MD [address] [facility] [address] [place] [address] Health Maintenance Due Date Last Done Comments Colorectal Cancer Screening Colonoscopy (10 Years) 1950 Hepatitis C 08/28/1969 DTaP, Tdap and Td Vaccines ( 1 - Tdap) 08/28/1970 Pneumococcal Vaccine: 50+ Years (1 of 2 - PCV) 08/28/1970 RSV Immunization or 60+ Years (1 - Risk 60-74 years 1-dose series) 2011 Annual Medicare Wellness Visit 08/28/2016 Zoster Vaccines (2 of 2) 09/27/2017 08/02/2017 COVID-19 Vaccine (3 - 2023-2 5 season) 2024 06/28/2020, 06/07/2020 AAA SCREENING Completed 06/23/2018, 04/03/2017 Meningococcal B Vaccine Aged Out No l onger eligible based on patient's age to complete this topic Meningococcal Vaccine Aged Out No john abimbola eligible based on patient's age to complete this topic RSV Immunizations Under 20 Months Aged Out No longer eligible b ased on patient's age to complete this topic Procedures Procedure Name Priority Date/Time Associated Diagnosis Comments ECG 12-LEAD Routine 11/17/2024 3:27 PM CDT Essential hypertension Encounter to establish care with new doctor CTA CHEST Today 06/23/2018 3:11 PM UTILIZATION MANAGER from Last 3 Months or Most Recently Relevant to Health Maintenance Results * ECG 12 lead (HOSPITAL PERFORMED ONLY) (11/17/2024 3:27 PM CDT) 11/17/2024 3:27 PM CDT Narrative [facility] - 11/18/2024 9:49 AM CDT [address] [place] [address] Test Date: 2024-11-17 Pat Name: JAG FLAHERTYELIDIA Department: 3 Room: Gender: Male Kiln Stoker: : 1950 Requested By: VISH RODRIGUEZ Order Number: [id number] Reading MD: Vish Rodriguez Measurements Intervals [place] Rate: 68 P: 50 NV: 206 QRS: 63 QRSD: 109 T: 7 QT: 431 QTc: 459 Interpretive Statements SINUS RHYTHM LOW QRS VOLTAGE IN PRECORDIAL LEADS INCOMPLETE RIGHT BUNDLE BRANCH BLOCK NONSPECIFIC ST & T-WAVE ABNORMALITY Procedure Note Vish Rodriguez MD - 11/18/[address] [place] [place] [address] Test Date: 2024-11-17 Pat Name: JAG RETANA Department: 3 Room: Gender: Male Kiln Stoker: : 1950 Requested By: VISH RODRIGUEZ Order Number: [id number] Reading MD: Vish Rodriguez Measurements Intervals [place] Rate: 68 P: 50 NV: 206 QRS: 63 QRSD: 109 T: 7 QT: 431 QTc: 459 Interpretive Statements SINUS RHYTHM LOW QRS VOLTAGE IN PRECORDIAL LEADS INCOMPLETE RIGHT BUNDLE BRANCH BLOCK NONSPECIFIC ST & T-WAVE ABNORMALITY us Vish Rodriguez MD ECG ORDERABLES Final Result [facility] * CTA CHEST (06/23/2018 3:11 PM UTILIZATION MANAGER) Anatomical Region Laterality Modality Chest Computed Tomogra phy 06/23/2018 6:09 PM UTILIZATION MANAGER Impressions 06/23/2018 6:21 PM UTILIZATION MANAGER Impression: Substantial reduction in pulmonary embolic burden as compared to 06/19/2018 with normalization of the RV: LV ratio suggesting improvement in acute right heart strain. Embolic filling defects are now seen in the right lower lobar artery and otherwise in the more distal segmental and subsegmental branches as detailed above. Findings were discussed with Dr. Davenport at 6:15 PM, 06/23/2018. Interpreted By: Vega De La Fuente MD, 06/23/2018 6:09 PM Narrative 06/23/2018 6:[address] Chest with contrast, pulmonary embolus protocol: 06/23/2018 6:09 PM INDICATION: Recurrent pulmonary embolism, history of multiple sclerosis. Status post transcatheter embolectomy. TECHNIQUE: After the administration of 50mL Isovue 370, intravenously, multidetector CT of the chest with contrast is performed. Multiplanar and MIP images are created and reviewed. A dose lowering technique was used for this procedure, which may include, but is not limited to, dose reduction techniques, automated exposure control, the use of a iterative reconstruction, and ALARA (as low as reasonably achievable)/image gently techniques. COMPARISON: 06/19/2018, [facility]. FINDINGS: Chest: There is adequate opacification of the pulmonary arteries only to the proximal subsegmental level. The more distal vessels are incompletely opacified due to dilution of the contrast bolus. As compared to 06/19/2018, there has been marked reduction in pulmonary embolic burden. Clot previously identified in the main pulmonary artery and right and left pulmonary arteries has resolved. There is residual embolic material in the distal right lower lobe pulmonary artery and in the segmental and subsegmental branches of both lower lobes, the right middle lobe, and the lingular artery. Equivocal very small residual emboli are identified in several of the subsegmental right upper lobe branches. Right ventricle has decreased in size, with normalization of the artery: LV ratio. The aorta is mildly ectatic, measuring up to 3.8 cm diameter. There is no mediastinal or hilar adenopathy. A new, small layering right pleural effusion is present with adjacent passive right basilar atelectasis. Milder atelectasis is seen in the left base.There is no focal pulmonary consolidation. No convincing pulmonary infarct is identified. In the upper abdomen, diffuse hypoattenuation of the liver is noted, consistent with steatosis. No destructive osseous lesion is identified. Procedure Note Vega De La Fuente MD - 06/23/2018 CT Chest with contrast, pulmonary embolus protocol: 06/23/2018 6:09 PM INDICATION: Recurrent pulmonary embolism, history of multiple sclerosis. Status post transcatheter embolectomy. TECHNIQUE: After the administration of 50mL Isovue 370, intravenously, multidetector CT of the chest with contrast is performed. Multiplanarand MIP images are created and reviewed. A dose lowering technique was usedfor this procedure, which may include, but is not limited to, dose reduction techniques, automated exposure control, the use of a iterative reconstruction, and ALARA (as low as reasonably achievable)/image gently techniques. COMPARISON: 06/19/2018, [facility]. FINDINGS: Chest: There is adequate opacification of the pulmonary arteries only to the proximal subsegmental level. The more distal vessels are incompletely opacified due to dilution of the contrast bolus. As compared to06/19/2018, there has been marked reduction in pulmonary embolic burden. Clot previously identified in the main pulmonary artery and right and left pulmonary arteries has resolved. There is residual embolic material inthe distal right lower lobe pulmonary artery and in the segmental and subsegmental branches of both lower lobes, the right middle lobe, andthe lingular artery. Equivocal very small residual emboli are identified in several of the subsegmental right upper lobe branches. Right ventriclehas decreased in size, with normalization of the artery: LV ratio. The aortais mildly ectatic, measuring up to 3.8 cm diameter. There is no mediastinalor hilar adenopathy. A new, small layering right pleural effusion ispresent with adjacent passive right basilar atelectasis. Milder atelectasis isseen in the left base.There is no focal pulmonary consolidation. Noconvincing pulmonary infarct is identified. In the upper abdomen, diffuse hypoattenuation of the liver is noted, consistent with steatosis. No destructive osseous lesion is identified. Impression: Substantial reduction in pulmonary embolic burden as compared to06/19/2018 with normalization of the RV: LV ratio suggesting improvement in acute right heart strain. Embolic filling defects are now seen in the rightlower lobar artery and otherwise in the more distal segmental and subsegmental branches as detailed above. Findings were discussed with Dr. Davenport at 6:15 PM, 06/23/2018. Interpreted By: Vega De La Fuente MD, 06/23/2018 6:09 PM Freddie Meza MD CT Final Result from Last 3 Months or Most Recently Relevant to Health Maintenance Insurance [employer] Advance Directives * Full Code (Latest Code Status on File) Date Activated Date Inactivated Comments 06/20/2018 2:36 AM 06/26/2018 12:57 AM Care Teams Jewelry Department Supervisor Relationship Specialty Start Date End Date Winnie Turner FNP [address] [place] [address] PCP - General NURSE PRACTITIONER 10/19/24 Vish Rodriguez MD [address] [facility] [address] [place] [address] Physician INTERVENTIONAL CARDIOLOGY 10/19/24
--- OUTSIDE RECORDS SUMMARY | 2024-12-09 16:04 | XMS_ITS | Clinical Summary ---
Author Organization [facility] Building B Address [address] [place] [address] Care Team Providers Care Service Worker Name Role Phone Miscellaneous, Not In File Primary Care Provider Unavailable Allergies Active Allergy Reactions Criticality Noted Date Comments Carbamazepine Other (See comments) Low 06/20/2018 elevates BP Oseltamivir Mental status changes Low 01/22/2018 Medications multivitamin tabletIndicatio ns:Vitamin Deficiency Prevention Take 1 tablet by mouth Active cholecalciferol (VITAMIN D-3) 5,000 unit capsule Take 1 capsule (5,000 Units total) by mouth daily Active tamsulosin (FLOMAX) 0.4 mg extended release capsule Take 1 capsule (0.4 mg total) by mouth daily 12 8 Active ELIQUIS 5 mg tablet Take 1 tablet (5 mg total) by mouth 2 (two) times a day 9 Active amLODIPine (NORVASC) 10 mg tablet TAKE ONE TABLET EVERY DAY IN THE MORNING 2 9 Active metoprolol (LOPRESSOR) 25 mg tablet Take 1 tablet (25 mg total) by mouth 2 (two) times a day 3 9 Active atorvastatin (LIPITOR) 20 mg tablet Take 1 tablet (20 mg total) by mouth daily 0 Active lidocaine (LIDODERM) 5 % 2 Active dutasteride (AVODART) 0.5 mg capsule TAKE 1 CAPSULE BY MOUTH EVERY DAY Oral for 90 Days Active omega-3 fatty acids-fish oil 300-1,000 mg capsule Take 2 capsules (2 g total) by mouth daily Active azelastine (ASTELIN) 137 mcg (0.1 %) nasal spray Administer 2 sprays into each nostril 2 (two) times a day 4 Active Mounjaro 7.5 mg/0.5 mL pen injector Inject 7.5 mg as directed every 7 days 4 Active clonazePAM (KlonoPIN) 1 mg tablet TAKE ONE TABLET BY MOUTH DAILY WITH LUNCH AND TAKE TWO TABLETS BY MOUTH 90 tablet 5 5 Active allopurinoL (ZYLOPRIM) 300 mg tablet Take 1 tablet (300 mg total) by mouth daily 5 Active lisinopriL (PRINIVIL,ZESTR IL) 40 mg tablet Take 1 tablet (40 mg total) by mouth daily [address] (CYMBALTA) 30 mg capsule Take 1 capsule (30 mg total) by mouth daily Active glucosamine sulfate 1,000 mg capsule Take by mouth Activ e Active Problems Problem Noted Date Diagnosed Date Neuropathic pain of both feet 08/05/2018 Multiple sclerosis 11/21/2010 Overview (09/05/2023): MS medication history: PPMS Ocrevus: Assessment & Plan (10/14/2024 11:52 AM CDT): The patient is presenting for follow up of multiple sclerosis. Since his last visit he reports no significant new symptoms. His power wheelchair continues to work well. Continues to have ongoing muscle spasms in his legs particularly when waking up. He continues to use a urinal during the night to help with nighttime urination. He reports overall that things appear stable in his able to compensate well for his ongoing symptoms. His neurological exam shows no new deficits. We discussed ongoing management of his multiple sclerosis and stroke. We discussed that given his contractures that are beginning in his right hand it would be beneficial to wear a right hand brace at night to help prevent further stiffness. I will provide the patient with the name of a brace that they can purchase through [employer] and they can also talk with pharmacist at [facility] or [email or web address] who also likely carry these braces. The patient reports snoring at night but states his sleep is largely restful. I am concerned about possible underlying sleep apnea and I will give the patient a number to call for a local sleep specialist for further evaluation. I will continue Klonopin 1 mg during the day and 2 mg at night. The patient has not obtained an external catheter but has a information in case he is interested in pursuing this option to help with nighttime urination. I will provide him with the information again for the product on [employer]. We will see the patient back in follow up instructed him to reach out if any questions arise before our next visit. Assessment & Plan (03/26/2024 3:11 PM DATABASE SOFTWARE TECHNICIAN): The patient is presenting for follow up of his multiple sclerosis. He continues to experience weakness most prominently in his bilateral lower extremities, right leg greater than left leg. No definitively new symptoms since his last appointment. He had a episode of COVID couple of weeks ago that resulted in him being bed-bound for two weeks. He has since recovered in his back to his baseline. He was dependent on his for his activities of daily living but is able to feed himself if food is prepared for him. He uses a power wheelchair to get around in his roughly 3 years old. We discussed using a condom catheter at night to help with nighttime urinations. The patient could also consider a suprapubic catheter in the future if he has ongoing difficulty with urination or begins to develop recurrent urinary tract infections. Recommended that the patient search for Latex Condom Catheter External Self- Sealing Set on [employer] as this seems to be the cheapest and quickest way to get the condom catheters if he is interested in pursuing them. I recommended a course of occupational therapy to maximize strength in the patient's arm. We will place a referral for home occupational therapy to come by and work with him. The patient uses a power wheelchair when traveling for longer distances. He also has a van at home that he uses to transport the wheelchair. I will see the patient back in roughly six months for follow up. Instructed him to reach out if anything comes up in the meantime. Gout, unspecified 11/21/2010 Abnormal gait 11/21/2010 Encounters Date Type Department Care Team Description 10/19/2024 Orders Only [facility] [address] [address] Arias Pichardo MD Sleep apnea, unspecified type (Primary Dx) 10/14/2024 11:00 AM CDT Office Visit [facility] [address] [place] [address] Arias Pichardo MD Multiple sclerosis (HCC) (Primary Dx) from Last 3 Months Immunizations Immunization Administration Dates Next Due Influenza, Quadrivalent, Spl it, Preservative Free, Intramuscular 01/14/2020 Pfizer SARS-CoV-2 Monovalent Vaccination (12+ Yrs) PURPLE 06/28/2020,06/07/2020 ZOSTER Recombinant 08/02/2017 Surgical History Surgery Date Site/Laterality Comments CORONARY ANGIOPLASTY Medical History Medical History Date Comments MS (multiple sclerosis) Erectile dysfunction Hypertension Insomnia Anxiety Depression Pulmonary embolism 04/2017 Urinary tract infection Fatigue Swelling of ankle Hx of custodial use of blood thinners Frequent urination Muscle pain Rash Weakness Anxiety Irritability Pulmonary embolism 06/24 DVT (deep venous thrombosis) Blockage of coronary artery bypass graft Family History Medical History Relation Name Comments Cancer Father Chronic Pain Father Hypertension Father Hypertension Mother Relation Name Status Comments Father Mother Social History Tobacco Use Types Packs/Day Years Used Date Smoking Tobacco: Former Smokeless Tobacco: Never Alcohol Use Standard Drinks/Week Comments No 0 (1 standard drink = 0.6 oz pur e alcohol) Sex and Gender Information Value Date Recorded Sex Assigned at Not on file Legal Sex Male 5:19 AM DATABASE SOFTWARE TECHNICIAN Gender Identity Male 01/13/2020 8:11 PM CDT Sexual Orientation Not on file Obstetrics History Last Filed Vital Signs Vital Sign Reading Time Taken Comments Blood Pressure 133/80 10/14/2024 11:10 AM CDT Pulse 83 10/14/2024 11:10 AM CDT Temperature 36.8 C (98.3 F) 10/14/2024 11:10 AM CDT Respiratory Rate 16 01/14/2020 9:27 AM CDT Oxygen Saturation 100% 10/14/2024 11:10 AM CDT Inhaled Oxygen Concentration - - Weight 136.1 kg (300 lb) 10/14/2024 11:10 AM CDT Height 185.4 cm (6' 1) 10/14/2024 11:10 AM CDT Body Mass Index 39.58 10/14/2024 11:10 AM CDT Plan of Treatment Health Maintenance Due Date Last Done Comments Colon Cancer Screening-Colonoscopy 1950 Depression Screening 1950 Fall Risk Assessment 1950 Hepatitis C Screening 1950 DTaP/Tdap/Td Vaccine (1 - Tdap) 08/28/1962 Hepatitis B Screening 08/28/1969 Pneumococcal vaccine 65+ (1 of 1 - PCV) 08/28/2001 Abdominal Aortic Aneurysm (A AA) Screen 08/28/2016 Well Visit 65+ 08/28/2016 Zoster Vaccine (2 of 2) 09/27/2017 08/02/2017 Covid-19 Vaccine ( season) 2024 04/10/2021, 06/28/2020, 06/07/2020 Influenza Vaccine (#1) 2025 01/14/2020 Insurance MEDICARE [employer] [facility] [employer] MEDICARE Care Teams Service Worker Relationship Specialty Start Date End Date Miscellaneous, Not In File PCP - General 07/06/19
--- OUTSIDE RECORDS SUMMARY | 2024-12-09 16:04 | XMS_ITS ---
Author Organization [facility] Address [address] [place], [place] [id number] Care Team Providers Care Boat Loader Name Role Phone DERIC BARKSDALE Unavailable [phone] Winnie Turner Unavailable Unavailable MARY MURDOCK Unavailable [phone] REASON FOR VISIT *General care Medications Medication [...] Dutasteride 0.5 MG TAKE 1 CAPSULE BY [facility] EVERY DAY Oral; Duration: 90 Days Active Lisinopril 40 MG Oral; Duration: 90 Days Active DULoxetine HCl 30 MG Oral; Duration: 90 Days Active clonazePAM 1 MG Oral; Duration: 30 Days Active Vital Signs Height 73.00 in 10/08/2024 Weight 292 lbs 10/08/2024 BMI 38.52 kg/m2 10/08/2024 Height-cm 185.42 cm 10/08/2024 Weight-kg 132.45 kg 10/08/2024 Encounters Encounter Location Date Provider Diagnosis [address] [id number] 10/08/2024 MARY MURDOCK Tinea unguium B35.1 ; Pain in right toe(s) M79.674 ; Pain in left toe(s) M79.675 ; Atherosclerosis of [place] arteries of extremities with intermittent claudication, bilateral [...] toe(s) (ICD-10 - M79.675) 10/08/2024 Atherosclerosis of [place] arteries of extremities with intermittent claudication, bilateral [...] develop. Provider Name:MARY CAMARILLO, 12/24/2024 01:10:00 PM, [address] [place] [address], [phone], Progress Notes * CARINA NICHOLAS MDOB: 2 (74 yo M)Acc No.[id number]:10/08/2024 Patient: CARINA PANDYA Provider: Phuong MURDOCK :1950 A ge:74 Y S ex:Male Date:10/08/2024 Address:[address] [place] [address] Subjective: * Chief Complaints: * 1 . [...] Patient denies c hest pain, history of VT, irregular heartbeat. M usculoskeletal: Patient complains of [...] - M79.675 4 . A therosclerosis of [place] arteries of extremities with intermittent claudication, bilateral [...] develop.) * Billing Information: * Visit Code: 26107 Office Visit, Est Pt., Level 3. * Procedure Codes: * Electronic signature of ZACARIAS MURDOCK DPM on 12/09/2024 at 04:04 PM CDT Sign off status: Pending * Provider: Phuong MURDOCK Date: 0 10/08/2024 Generated for Cornelia russ/Bam/Daphne on: 0 12/09/2024 04:04 PM CDT History and Physical Notes * HPI [...]
--- OUTSIDE RECORDS SUMMARY | 2024-12-09 16:04 | XMS_ITS | Patient Health Record ---
Author Organization [facility] Address [address] [place], [place] [id number] Care Team Providers Care Sign Writer Letterer Or Painter Name Role Phone DERIC BARKSDALE Unavailable [phone] Johnny Winnie Unavailable Unavailable ИВАНEARNESTINE Unavailable [phone] MARY MURDOCK Unavailable [phone] Allergies No Known Allergies Reason For Referral No Information Medications Medication SIG (Take, Route, Frequency, Duration) Notes Start Date End Date Status Atorvastatin Calcium 20 MG Oral; Duration: 90 Days Active amLODIPine Besylate 10 MG Oral; Duration: 90 Days Active DULoxetine HCl 30 MG Oral; Duration: 90 Days Active Metoprolol Tartrate 25 MG Oral; Duration: 90 Days Active Finasteride 5 MG Oral; Duration: 90 Days Active Dutasteride 0.5 MG TAKE 1 CAPSULE BY [facility] EVERY DAY Oral; Duration: 90 Days Active Lisinopril 40 MG Oral; Duration: 90 Days Active clonazePAM 1 MG Oral; Duration: 30 Days Active Allopurinol 300 MG Oral; Duration: 90 Days Active Tamsulosin HCl 0.4 MG Oral; Duration: 90 Days Active Lidocaine 5 % External; Duration: 60 Days Active Eliquis 5 MG Oral; Duration: 90 Days Active Immunizations Vaccine Route Administration Date Status Comme nts Influenza, high dose seasonal Unknown 02/22/2023 Admini stered Influenza, quadrivalent, spl it, preservative free, 3 years or older Unknown 01/14/2020 Administered Pfizer-[employer] Covid-19 Vac cine 1st dose Unknown 06/07/2020 Administered Pfizer-[employer] Covid-19 Vac cine 1st dose Unknown 06/28/2020 Administered Vital Signs Height-cm 185.42 cm 10/08/2024 Weight-kg 132.45 kg 10/08/2024 Height 73.00 in 10/08/2024 Weight 292 lbs 10/08/2024 BMI 38.52 kg/m2 10/08/2024 Encounters Encounter Location Date Provider Diagnosis [address] [id number] 10/08/2024 MARY MURDOCK Tinea unguium B35.1 ; Pain in right toe(s) M79.674 ; Pain in left toe(s) M79.675 ; Atherosclerosis of [place] arteries of extremities with intermittent claudication, bilateral legs I70.213 and Type 2 diabetes mellitus with other circulatory complications E11.[address] [id number] 12/26/2023 EARNESTINE OATES Unspecified atherosclerosis of apache arteries of extremities, bilateral legs I70.203 ; Tinea unguium B35.1 ; Other hammer toe(s) (acquired), right foot M20.41 ; Other hammer toe(s) (acquired), left foot M20.42 ; Pain in right toe(s) M79.674 and Pain in left toe(s) M79.[address] [id number] 02/27/2024 EARNESTINE OATES Unspecified atherosclerosis of apache arteries of extremities, bilateral legs I70.203 ; Tinea unguium B35.1 ; Other hammer toe(s) (acquired), right foot M20.41 ; Other hammer toe(s) (acquired), left foot M20.42 ; Pain in right toe(s) M79.674 and Pain in left toe(s) M79.675 [facility] [address] [place], [place] [id number] 05/07/2024 DERIC BARKSDALE Tinea unguium B35.1 ; Pain in right toe(s) M79.674 ; Pain in left toe(s) M79.675 ; Atherosclerosis of apache arteries of extremities with intermittent claudication, bilateral legs I70.213 and Type 2 diabetes mellitus with other circulatory complications E11.[address], [place] [id number] 07/09/2024 DERIC BARKSDALE Tinea unguium B35.1 ; Pain in right toe(s) M79.674 ; Pain in left toe(s) M79.675 ; Atherosclerosis of apache arteries of extremities with intermittent claudication, bilateral legs I70.213 and Type 2 diabetes mellitus with other circulatory complications E11.59 Assessments Encounter Date Diagnosis (ICD Code) Assessment Notes Treatment Notes Treatment Clinical Notes Section Notes 12/26/2023 Tinea unguium (ICD-10 - B35.1) Aseptic debridement of elongated thickened nails x 10 using sterile nippers, nails were debrided in length and thickness by 30% utilizing a nail nipper without incident. The patient was educated regarding all treatment options that include topical and oral antifungal treatments. I discussed the options of taking a sample of the nail to confirm diagnosis. Nail clippings were not sent for pathology analysis. The patient was educated why and how the fungal infection evolved in their feet and the patient was given information regarding how to prevent further infection. The patient was told to keep feet dry and change socks. The patient was told to be careful with old shoes and excessive sweating. The patient was educated regarding both OTC and prescription treatments. 12/26/2023 Unspecified atherosclerosis of apache arteries of extremities, bilateral legs (ICD-10 - I70.203) Patient educated on risks and aggravating factors of PVD, including conservative treatment options such as a diet and exercise regimen to aid in slowing progression of vascular disease 02/27/2024 Tinea unguium (ICD-10 - B35.1) Aseptic debridement of elongated thickened nails x 10 using sterile nippers, nails were debrided in length and thickness by 30% utilizing a nail nipper without incident. The patient was educated regarding all treatment options that include topical and oral antifungal treatments. I discussed the options of taking a sample of the nail to confirm diagnosis. Nail clippings were not sent for pathology analysis. The patient was educated why and how the fungal infection evolved in their feet and the patient was given information regarding how to prevent further infection. The patient was told to keep feet dry and change socks. The patient was told to be careful with old shoes and excessive sweating. The patient was educated regarding both OTC and prescription treatments. 02/27/2024 Unspecified atherosclerosis of apache arteries of extremities, bilateral legs (ICD-10 - I70.203) Patient educated on risks and aggravating factors of PVD, including conservative treatment options such as a diet and exercise regimen to aid in slowing progression of vascular disease 05/07/2024 Tinea unguium (ICD-10 - B35.1) NAIL DEBRIDEMENT: Nails 1-5 Bilateral were debrided extensively with nail nippers and emery board, reducing length and girth to pink healthy tissue with any subungual debris and necrotic tissue removed 07/09/2024 Tinea unguium (ICD-10 - B35.1) NAIL DEBRIDEMENT: Nails 1-5 Bilateral were debrided extensively with nail nippers and emery board, reducing length and girth to pink healthy tissue with any subungual debris and necrotic tissue removed 10/08/2024 Tinea unguium (ICD-10 - B35.1) NAIL DEBRIDEMENT: Nails 1-5 Bilateral were debrided extensively with nail nippers and emery board, reducing length and girth to pink healthy tissue with any subungual debris and necrotic tissue removed 07/09/2024 Pain in right toe(s) (ICD-10 - M79.674) 05/07/2024 Pain in right toe(s) (ICD-10 - M79.674) 02/27/2024 Other hammer toe(s) (acquired), right foot (ICD-10 - M20.41) The patient was educated regarding how to mechanically stabilize their deformity. The patient was given education about shoe recommendations specific for the condition. The patient was educated about custom orthotics and how appropriate shoes and orthotics can prevent further worsening of the deformity. The patient was educated about how bad shoe habits can worsen the condition. NSAIDS, P.T., injections and other conservative treatments were discussed. Both surgical and non surgical treatments were discussed, but conservative options were emphasized. 10/08/2024 Pain in right toe(s) (ICD-10 - M79.674) 12/26/2023 Other hammer toe(s) (acquired), right foot (ICD-10 - M20.41) The patient was educated regarding how to mechanically stabilize their deformity. The patient was given education about shoe recommendations specific for the condition. The patient was educated about custom orthotics and how appropriate shoes and orthotics can prevent further worsening of the deformity. The patient was educated about how bad shoe habits can worsen the condition. NSAIDS, P.T., injections and other conservative treatments were discussed. Both surgical and non surgical treatments were discussed, but conservative options were emphasized. 12/26/2023 Other hammer toe(s) (acquired), left foot (ICD-10 - M20.42) 10/08/2024 Pain in left toe(s) (ICD-10 - M79.675) 02/27/2024 Other hammer toe(s) (acquired), left foot (ICD-10 - M20.42) 05/07/2024 Pain in left toe(s) (ICD-10 - M79.675) 07/09/2024 Pain in left toe(s) (ICD-10 - M79.675) 05/07/2024 Atherosclerosis of apache arteries of extremities with intermittent claudication, bilateral legs (ICD-10 - I70.213) 07/09/2024 Atherosclerosis of apache arteries of extremities with intermittent claudication, bilateral legs (ICD-10 - I70.213) 02/27/2024 Pain in right toe(s) (ICD-10 - M79.674) 10/08/2024 Atherosclerosis of apache arteries of extremities with intermittent claudication, bilateral legs (ICD-10 - I70.213) 12/26/2023 Pain in right toe(s) (ICD-10 - M79.674) 12/26/2023 Pain in left toe(s) (ICD-10 - M79.675) 02/27/2024 Pain in left toe(s) (ICD-10 - M79.675) 05/07/2024 Type 2 diabetes mellitus with other circulatory complications (ICD-10 - E11.59) Diabetic Foot Care: The patient was educated on diabetes and the lower extremity. The patient was instructed to check his feet daily to report any problems or signs of infection immediately. The patient was provided written information on Diabetic Foot Care as well as the Amputation Prevention Guide. 07/09/2024 Type 2 diabetes mellitus with other circulatory complications (ICD-10 - E11.59) Diabetic Foot Care: The patient was educated on diabetes and the lower extremity. The patient was instructed to check his feet daily to report any problems or signs of infection immediately. The patient was provided written information on Diabetic Foot Care as well as the Amputation Prevention Guide. 10/08/2024 Type 2 diabetes mellitus with other circulatory complications (ICD-10 - E11.59) Diabetic Foot Care: The patient was educated on diabetes and the lower extremity. The patient was instructed to check his feet daily to report any problems or signs of infection immediately. The patient was provided written information on Diabetic Foot Care as well as the Amputation Prevention Guide. Plan Of Treatment Next Appt Details Provider Name:MARY CAMARILLO, 12/24/2024 01:10:00 PM, [address] [place] [address], [id number], Insurance Providers Payer Name Payer Address Payer Phone Subscriber Number Group Number Insured Name Patient Relationship to Insured Coverage Start Date Coverage End Date [employer] [address] [place] [phone] [id number] CARINA NICHOLAS Self - patient is the insured
--- OUTSIDE RECORDS SUMMARY | 2024-12-09 16:04 | XMS_ITS | Encounter Summary ---
Author Organization [facility] Address [address] [place] [address] Care Team Providers Care Batch Freezer Name Role Phone Miscellaneous, Not In File Primary Care Provider Unavailable Encounter Details Date Type Department Care Team (Late st Contact Info) Description 12/13/2020 Telephone [facility] [place] [address] Transcribed Order, Provider Social History Tobacco Use Types Packs/Day Years Used Date Smoking Tobacco: Former Smokeless Tobacco: Never Alcohol Use Standard Drinks/Week Comments No 0 (1 standard drink = 0.6 oz pur e alcohol) Sex and Gender Information Value Date Recorded Sex Assigned at Not on file Legal 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
--- OUTSIDE RECORDS SUMMARY | 2024-12-09 16:04 | XMS_ITS | Clinical Summary ---
Author Organization [facility] [employer] Address [address] [place] [address] Care Team Providers Care Composite Assembler Name Role Phone Rocío Patel MD Primary Care Provider [phone] Source Comments [facility],non-[facility] Affiliates and Associated Physician Practices is amultiple site organization consisting of ambulatory clinics and hospital sitesin [place], [place], [place] and [place]. This disclosure is being madepursuant to the Care Everywhere program and may not contain all information available regarding this patient. Last updated 18.[facility] [employer] Allergies Active Allergy Reactions Criticality Noted Date Comments Carbamazepine Other 02/23/2016 Caused blood pressure to be high Medications * Be aware that medications may not be up to date on this document. Alwaysverify current medications with the patient. amLODIPine (NORVASC) 10 MG tablet Take 10 mg by mouth once daily 5 11/26/19 16 Active lisinopril (PRINIVIL; ZESTRIL) 40 MG tablet Take 20 mg by mouth once daily 5 11/28/19 16 Active CIALIS 10 MG tablet as directed Reported on 05/28/2016 4 10/31/19 16 Active Cotulla-3 Fatty Acids (FISH OIL) 1200 MG Take 1,200 mg by mouth 2 times daily Active Multiple Vitamin (MULTI VITAMIN MENS PO) Take 1 tablet by mouth once daily Active vitamin D, cholecalciferol, 2000 UNITS tablet Take 2,000 Units by mouth once daily Active [id number]-MHGIWR-HD CHONDR-MSM PO Take 1 Tab by mouth 2 times daily Active allopurinol (ZYLOPRIM) 300 MG tablet Take 300 mg by mouth once daily Active metoprolol tartrate (LOPRESSOR) 50 MG tabletIndications: Neuropathic pain,Demyelinogeni c leukodystrophy (HCC) Take 50 mg by mouth once daily 4 04/25/20 16 Active lidocaine-prilocai ne (EMLA) 2.5-2.5 % cream Apply to affected area 2 times daily as needed 11/13/19 17 Active DULoxetine (CYMBALTA) 20 MG capsuleIndications :Neuropathic pain Take 1 Cap by mouth 2 times daily 60 Cap 5 11/29/19 17 Active Additional Information Patient not taking.Reported on 05/31/2017 lidocaine (XYLOCAINE) 5 % ointment APPLY TO AFFECTED AREA DIRECTED 5 01/05/20 17 Active Misc. DevicesIndications :Motorized Wheelchair Take 1 Each by mouth once daily Reasons: Motorized Wheelchair 1 tablet 02/29/20 17 Active tiZANidine (ZANAFLEX) 4 MG tablet TAKE 1 TABLET BY MOUTH 3 TIMES A DAY 90 tablet 4 03/04/20 17 Active predniSONE (DELTASONE) 10 MG tablet Take 20 mg by mouth once daily 0 05/22/19 18 Active warfarin (COUMADIN) 7.5 MG tablet Take 15 mg by mouth once daily 0 05/28/19 18 Active acetaminophen (TYLENOL) 325 MG tablet Take 325 mg by mouth every 4 hours as needed for Fever or Pain Maximum allowable Acetaminophen amount = 4 Grams (4000 mg) / 24 hours. Active bisacodyl EC (BISACODYL EC) 5 MG tablet Take 5 mg by mouth once as needed for Constipation Active ipratropium hfa (ATROVENT HFA) 17 MCG/ACT inhaler Inhale 2 puffs by mouth 3 times daily Active topiramate (TOPAMAX) 25 MG tablet Take 25 mg by mouth 2 times daily Active ascorbic acid (VITAMIN C) 125 MG TABS half tablet Take 500 mg by mouth once daily Active nortriptyline (PAMELOR) 50 MG capsule TAKE 2 CAPSULES BY MOUTH AT BEDTIME 180 capsule 2 07/02/19 18 Active clonazePAM (KLONOPIN) 1 MG tablet TAKE 1 TABLET BY MOUTH MID-DAY & TAKE 2 TABLETS BY MOUTH AT BEDTIME 90 tablet 07/09/19 18 Active Active Problems Problem Noted Date Diagnosed Date MS (multiple sclerosis) 02/28/2017 Gait difficulty 12/22/2015 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 Numbness 12/22/2015 Neuropathic pain 12/22/2015 Family History Medical History Relation Name Comments Cancer Brother Cancer Father Hypertension Mother Hypertension Sister Relation Name Status Comments Brother Father Mother Sister Social History Tobacco Use Types Packs/Day Years Used Date Smoking Tobacco: Former Cigarettes Smokeless Tobacco: Never Alcohol Use Standard Drinks/Week Comments No 0 (1 standard drink = 0.6 oz pur e alcohol) Sex and Gender Information Value Date Recorded Sex Assigned at Not on file Legal Sex Male 11:11 AM CDT Gender Identity Not on file Sexual Orientation Not on file Occupation Industry Job Start Date Job End Date RETIRED Not on file Not on file Not on file Last Filed Vital Signs Vital Sign Reading Time Taken Comments Blood Pressure 142/106 05/31/2017 12:16 PM ETCHER MACHINE Pulse 88 05/31/2017 12:16 PM ETCHER MACHINE Temperature 37.1 C (98.8 F) 12/17/2016 7:58 AM CDT Respiratory Rate 16 05/31/2017 12:16 PM ETCHER MACHINE Oxygen Saturation 97% 05/31/2017 12:16 PM ETCHER MACHINE Inhaled Oxygen Concentration - - Weight 138.8 kg (306 lb) 05/31/2017 12:16 PM ETCHER MACHINE Height 185.4 cm (6' 1) 05/31/2017 12:16 PM ETCHER MACHINE Body Mass Index 40.37 05/31/2017 12:16 PM ETCHER MACHINE Plan of Treatment Health Maintenance Due Date Last Done Comments COLOGUARD (AGES 45-75) - COL ON CA SCREENING 1950 COLON MONITORING 1950 COLONOSCOPY - COLON CA SCREENING 1950 CT COLONOGRAPHY - COLON CA SCREENING 1950 Colorectal Cancer Screening 1950 FIT - COLON CA SCREENING 1950 FLEX SIG - COLON CA SCREENING 1950 LIPID TESTING 1950 HEPATITIS C SCREENING 08/24/1969 DTAP/TDAP/TD VACCINES (1 - Tdap) 08/28/1970 PNEUMOCOCCAL VACCINE 50+ (1 of 1 - PCV) 08/28/2001 ZOSTER VACCINE (1 of 2) 08/28/2001 Respiratory Syncytial Virus (RSV) Vaccine Pt: or over 60 yrs (1 - Risk 60-74 years 1-dose series) 2011 AAA SCREENING 08/28/2016 SCREENING FOR DIABETES 11/28/2016 COVID-19 VACCINE (2023-2 5 season) 2024 DEPRESSION SCREENING 05/06/2024 MEDICARE AWV CALENDAR YEAR 2024 INFLUENZA VACCINE (#1) 2025 HEPATITIS B VACCINE Aged Out No longe r eligible based on patient's age to complete this topic HIB VACCINE Aged Out No longer eligi ble based on patient's age to complete this topic HPV VACCINE Aged Out No longer eligi ble based on patient's age to complete this topic MENINGOCOCCAL (Group B) VACC INE SHARED DECISION-MAKING Aged Out No longer eligibl e based on patient's age to complete this topic MENINGOCOCCAL GROUPS A/C/Y/W VACCINE Aged Out No longer eligible b ased on patient's age to complete this topic Insurance AETNA MEDICARE ADV * Guarantor: JAG RETANA Account Type Relation to Patient Date of Phone Billing Address Personal/Family [address] [place] [address] AETNA MEDICARE ADV SELF PAY NO INSURANCE Member Subscriber Plan / Payer (Ef fective for All Dates) Name:Jag Retana Member ID:Not on file Relation to Subscriber:Not on file Name:JAG RETANA Subscriber ID:Not on file (Home) Address: [address] [place] [address] Payer ID:Not on file Group ID:Not on file Type:Self Pay Address: [place], [place] * Guarantor: JAG RETANA Account Type Relation to Patient Date of Phone Billing Address Personal/Family [address] [place] [address] AETNA MEDICARE ADV SELF PAY NO INSURANCE Member Subscriber Plan / Payer (Ef fective for All Dates) Name:Jag Retana Member ID:Not on file Relation to Subscriber:Not on file Name:JAG RETANA Subscriber ID:Not on file (Home) Address: [address] [place] [address] Payer ID:Not on file Group ID:Not on file Type:Self Pay Address: [place], [place] * Guarantor: JAG RETANA Account Type Relation to Patient Date of Phone Billing Address Personal/Family [address] [place] [address] AETNA MEDICARE ADV SELF PAY NO INSURANCE Member Subscriber Plan / Payer (Ef fective for All Dates) Name:Jag Retana Member ID:Not on file Relation to Subscriber:Not on file Name:JAG RETANA Subscriber ID:Not on file (Home) Address: [address] [place] [id number] Payer ID:Not on file Group ID:Not on file Type:Self Pay Address: [place], [place] Care Teams Composite Assembler Relationship Specialty Start Date End Date Rocío Patel MD [address] [place] [address] PCP - General Surgery 11/11/15
[2024-12-09 16:31] LABS: Add Urine Microscopic? YES; Appearance Urine Cloudy (Clear); Glucose Urine UA Negative (Negative); Leukocyte Esterase Ur 3+ LEU/UL (Negative); Nitrate Urine Positive (Negative); Specific Grav Ur 1.010 (1.010-1.020)
== END 2024-12-09 16:01 | disposition home or self-care (01) ==
PROVIDERS: PCP Nurse Practitioner Family; Visit Provider Nurse Practitioner Family
DX: R30.0 Dysuria (principal)
CPT/HCPCS: 81001

== ENCOUNTER 2024-12-23 08:45 | Outpatient (CLI) | payer MEDICARE, SELFPAY ==
--- OUTSIDE RECORDS SUMMARY | 2024-09-10 10:30 | XMS_ITS ---
Author Organization [facility] Address [address] [place], [place] [id number] Care Team Providers Care Recruiting Coordinator Name Role Phone DERIC BARKSDALE Unavailable [phone] Winnie Turner Unavailable Unavailable MARY MURDOCK Unavailable [phone] REASON FOR VISIT *General care Encounters Encounter Location Date Provider Diagnosis [address] [id number] 09/10/2024 MARY MURDOCK Plan Of Treatment Next Appt Details Provider Name:MARY CAMARILLO, 12/24/2024 01:10:00 PM, [address] [place] [address], [id number], Progress Notes * CARINA NICHOLAS MDOB: 2 (74 yo M)Acc No.[id number]:09/10/2024 Patient: CARINA PANDYA Provider: Phuong MURDOCK :1950 A ge:74 Y S ex:Male Date:09/10/2024 Address:[address] [place], [place] [id number] Subjective: * Chief Complaints: * 1 . *General care. * Medical History: Objective: * Vitals: Assessment: Plan: * Treatment: * Billing Information: * Visit Code: * Procedure Codes: * Electronic signature of ZACARIAS MURDOCK DPM on 12/23/2024 at 08:52 AM CDT Sign off status: Pending * Provider: Phuong MURDOCK Date: 0 09/10/2024 Generated for Cornelia russ/Bam/Daphne on: 0 12/23/2024 08:52 AM CDT
--- OUTSIDE RECORDS SUMMARY | 2024-10-08 09:10 | XMS_ITS ---
Author Organization [facility] Address [address] [place], [place] [id number] Care Team Providers Care Academic Registrar Name Role Phone DERIC BARKSDALE Unavailable [phone] Winnie Turner Unavailable Unavailable MARY MURDOCK Unavailable [phone] REASON FOR VISIT *General care Medications Medication SIG (Take, Route, Frequency, Duration) Notes Start Date End Date Status Metoprolol Tartrate 25 MG Oral; Duration: 90 Days Active Allopurinol 300 MG Oral; Duration: 90 Days Active Tamsulosin HCl 0.4 MG Oral; Duration: 90 Days Active Lidocaine 5 % External; Duration: 60 Days Active Eliquis 5 MG Oral; Duration: 90 Days Active Atorvastatin Calcium 20 MG Oral; Duration: 90 Days Active amLODIPine Besylate 10 MG Oral; Duration: 90 Days Active Finasteride 5 MG Oral; Duration: 90 Days Active Dutasteride 0.5 MG TAKE 1 CAPSULE BY [facility] EVERY DAY Oral; Duration: 90 Days Active Lisinopril 40 MG Oral; Duration: 90 Days Active DULoxetine HCl 30 MG Oral; Duration: 90 Days Active clonazePAM 1 MG Oral; Duration: 30 Days Active Vital Signs Height 73.00 in 10/08/2024 Weight 292 lbs 10/08/2024 BMI 38.52 kg/m2 10/08/2024 Height-cm 185.42 cm 10/08/2024 Weight-kg 132.45 kg 10/08/2024 Encounters Encounter Location Date Provider Diagnosis [address] [id number] 10/08/2024 MARY MURDOCK Tinea unguium B35.1 ; Pain in right toe(s) M79.674 ; Pain in left toe(s) M79.675 ; Atherosclerosis of [place] arteries of extremities with intermittent claudication, bilateral [...] toe(s) (ICD-10 - M79.675) 10/08/2024 Atherosclerosis of [place] arteries of extremities with intermittent claudication, bilateral [...] sooner if problems develop. Provider Name:MARY CAMARILLO, 12/24/2024 01:10:00 PM, [address] [place] [address], [id number], Progress Notes * CARINA NICHOLAS MDOB: 2 (74 yo M)Acc No.[id number]:10/08/2024 Patient: CARINA PANDYA Provider: Phuong MURDOCK :1950 A ge:74 Y S ex:Male Date:10/08/2024 Address:[address] [place] [address] Subjective: * Chief Complaints: * 1 . *General care. * HPI: H PI: General care P [...] Patient denies c hest pain, history of MN, irregular heartbeat. M usculoskeletal: Patient complains of h ammertoes. P eripheral Vascular: Patient denies b lanching of skin, cold extremities, decreased sensation in extremities. S kin: Patient complains of n ail changes, fungal nails. ? N eurologic: Patient denies d izziness, gait abnormality, headache. * Medical History: * Family History: F ather: PRN - Father: . M other: PRN - Mother: . B rother: SIB - Brother: . S ister: SIB - Sister: . * Social History: M igrated Social History: M igrated Social History: History of tobacco use : , Smoking Status : Never smoked. * Medications: T aking Lidocaine 5 % Patch External , Taking Tamsulosin HCl 0.4 MG Capsule Oral , Taking Allopurinol 300 MG Tablet Oral , Taking clonazePAM 1 MG Tablet Oral , Taking DULoxetine HCl 30 MG Capsule Delayed Release Particles Oral , Taking amLODIPine Besylate 10 MG Tablet Oral , Taking Atorvastatin Calcium 20 MG Tablet Oral , Taking Lisinopril 40 MG Tablet Oral , Taking Dutasteride 0.5 MG Capsule TAKE 1 CAPSULE BY MOUTH EVERY DAY Oral , Taking Finasteride 5 MG Tablet Oral , Taking Metoprolol Tartrate 25 MG Tablet Oral , Taking Eliquis 5 MG Tablet Oral , Medication List reviewed and reconciled with the [...] - M79.675 4 . A therosclerosis of [place] arteries of extremities with intermittent claudication, bilateral [...] At-Risk Foot care, sooner if problems develop.) * Billing Information: * Visit Code: 70225 Office Visit, Est Pt., Level 3. * Procedure Codes: * Electronic signature of ZACARIAS MURDOCK DPM on 12/23/2024 at 08:53 AM CDT Sign off status: Pending * Provider: Phuong MURDOCK Date: 0 10/08/2024 Generated for Cornelia russ/Bam/Daphne on: 0 12/23/2024 08:53 AM CDT History and Physical Notes * HPI (History [...]
--- OUTSIDE RECORDS SUMMARY | 2024-12-10 09:50 | XMS_ITS ---
Author Organization [facility] Address [address] [place], [place] [address] Care Team Providers Care Printing Specialist Name Role Phone DERIC BARKSDALE Unavailable [phone] Winnie Turner Unavailable Unavailable MARY MURDOCK Unavailable [phone] REASON FOR VISIT *General care Encounters Encounter Location Date Provider Diagnosis [address] [id number] 12/10/2024 MARY MURDOCK Plan Of Treatment Next Appt Details Provider Name:MARY CAMARILLO, 12/24/2024 01:10:00 PM, [address] [place] [address], [id number], Progress Notes * CARINA NICHOLAS MDOB: 2 (74 yo M)Acc No.[id number]:12/10/2024 Patient: CARINA PANDYA Provider: Phuong MURDOCK :1950 A ge:74 Y S ex:Male Date:12/10/2024 Address:[address] [place], [place] [id number] Subjective: * Chief Complaints: * 1 . *General care. * Medical History: Objective: * Vitals: Assessment: Plan: * Treatment: * Billing Information: * Visit Code: * Procedure Codes: * Electronic signature of ZACARIAS MURDOCK DPM on 12/23/2024 at 08:52 AM CDT Sign off status: Pending * Provider: Phuong MURDOCK Date: 0 12/10/2024 Generated for Cornelia russ/Bam/Daphne on: 0 12/23/2024 08:52 AM CDT
--- OUTSIDE RECORDS SUMMARY | 2024-12-23 08:53 | XMS_ITS | Encounter Summary ---
Author Organization [facility] Address [address] [place] [address] Care Team Providers Care Oil House Attendant Name Role Phone Miscellaneous, Not In File Primary Care Provider Unavailable Encounter Details Date Type Department Care Team (Late st Contact Info) Description 12/13/2020 Telephone [facility] [address] [place] [address] Transcribed Order, Provider Social History Tobacco Use Types Packs/Day Years Used Date Smoking Tobacco: Former Smokeless Tobacco: Never Alcohol Use Standard Drinks/Week Comments No 0 (1 standard drink = 0.6 oz pur e alcohol) Sex and Gender Information Value Date Recorded Sex Assigned at Not on file 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
--- OUTSIDE RECORDS SUMMARY | 2024-12-23 08:53 | XMS_ITS | Clinical Summary ---
Author Organization [facility] Address [address] [place] [address] Care Team Providers Care Pitch Flaker Name Role Phone Miscellaneous, Not In File [...] a brace that they can purchase through [employer] [facility] and they can also talk with pharmacist at [facility] or [facility] who also likely carry these braces. The [...] the information again for the product on [facility]. We will see the patient back in follow up instructed him to reach out if any questions arise before our next visit. Assessment & Plan (03/26/2024 3:11 PM GATHERING MACHINE SETTER): The patient is presenting for follow up [...] Condom Catheter External Self- Sealing Set on [facility] as this seems to be the cheapest [...] Department Care Team Description 10/19/2024 Orders Only [facility] [place] [address] [address] Arias Pichardo MD Sleep apnea, unspecified type (Primary Dx) 10/14/2024 11:00 AM CDT Office Visit [facility] [place] [address] [place] [address] Arias Pichardo MD Multiple sclerosis [...] infection Fatigue Swelling of ankle Hx of director long term care use of blood thinners Frequent urination Muscle [...] on file Legal Sex Male 5:19 AM GATHERING MACHINE 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
--- OUTSIDE RECORDS SUMMARY | 2024-12-23 08:53 | XMS_ITS | Patient Health Record ---
Author Organization [facility] Address [address] [place], [place] [id number] Care Team Providers Care Operating Engineer Name Role Phone DERIC BARKSDALE Unavailable [phone] Johnny Winnie Unavailable Unavailable ИВАНEARNESTINE Unavailable [phone] MARY MURDOCK Unavailable [phone] Allergies No Known Allergies Reason For Referral [...] Dutasteride 0.5 MG TAKE 1 CAPSULE BY [facility] EVERY DAY Oral; Duration: 90 Days [...] 10/08/2024 Encounters Encounter Location Date Provider Diagnosis [address] [id number] 10/08/2024 MARY MURDOCK Tinea unguium B35.1 ; Pain in right toe(s) M79.674 ; Pain in left toe(s) M79.675 ; Atherosclerosis of [place] arteries of extremities with intermittent claudication, bilateral legs I70.213 and Type 2 diabetes mellitus with other circulatory complications E11.[address] [id number] 12/26/2023 EARNESTINE OATES Unspecified atherosclerosis of [place] arteries of extremities, bilateral legs I70.203 ; Tinea unguium B35.1 ; Other hammer toe(s) (acquired), right foot M20.41 ; Other hammer toe(s) (acquired), left foot M20.42 ; Pain in right toe(s) M79.674 and Pain in left toe(s) M79.[address] [id number] 02/27/2024 EARNESTINE OATES Unspecified atherosclerosis of [place] arteries of extremities, bilateral legs I70.203 ; Tinea unguium B35.1 ; Other hammer toe(s) (acquired), right foot M20.41 ; Other hammer toe(s) (acquired), left foot M20.42 ; Pain in right toe(s) M79.674 and Pain in left toe(s) M79.675 [facility] [address] [place], [place] [id number] 05/07/2024 DERIC BARKSDALE Tinea unguium B35.1 ; Pain in right toe(s) M79.674 ; Pain in left toe(s) M79.675 ; Atherosclerosis of [place] arteries of extremities with intermittent claudication, bilateral legs I70.213 and Type 2 diabetes mellitus with other circulatory complications E11.[address], [place] [id number] 07/09/2024 DERIC BARKSDALE Tinea unguium B35.1 ; Pain in right toe(s) M79.674 ; Pain in left toe(s) M79.675 ; Atherosclerosis of [place] arteries of extremities with intermittent claudication, bilateral [...] and prescription treatments. 12/26/2023 Unspecified atherosclerosis of [place] arteries of extremities, bilateral legs (ICD-10 - [...] and prescription treatments. 02/27/2024 Unspecified atherosclerosis of [place] arteries of extremities, bilateral legs (ICD-10 - [...] toe(s) (ICD-10 - M79.675) 05/07/2024 Atherosclerosis of [place] arteries of extremities with intermittent claudication, bilateral legs (ICD-10 - I70.213) 07/09/2024 Atherosclerosis of [place] arteries of extremities with intermittent claudication, bilateral legs (ICD-10 - I70.213) 02/27/2024 Pain in right toe(s) (ICD-10 - M79.674) 10/08/2024 Atherosclerosis of [place] arteries of extremities with intermittent claudication, bilateral [...] Details Provider Name:MARY CAMARILLO, 12/24/2024 01:10:00 PM, [address] [place] [address], [id number], Insurance Providers Payer Name Payer Address Payer Phone Subscriber Number Group Number Insured Name Patient Relationship to Insured Coverage Start Date Coverage End Date [employer] [address] [place] [address] [id number] CARINA NICHOLAS Self - patient is the insured
--- OUTSIDE RECORDS SUMMARY | 2024-12-23 08:53 | XMS_ITS | Clinical Summary ---
Author Organization [facility] Address [facility] [place] [address] Care Team Providers Care Core Microarchitect Name Role Phone Vish Rodriguez MD Unavailable [phone] Winnie Turner FANCY NEEDLEWORKER Primary Care Provider [phone] Allergies Active Allergy Reactions Criticality Noted Date [...] mouth. Active Glucosa-Chondr- Na Chondr-MSM (GLUCOSAMINE-CH ONDROITIN-MSM) [phone] MG Tab Take 1 tablet by mouth. [...] (THERABREATH DRY MOUTH) Lozenge As directed Active Granger-3 Fatty Acids (EQL OMEGA 3 FISH OIL) [...] thrombosis 07/30/2018 Essential hypertension 07/30/2018 Pulmonary embolism ([facility]) 06/20/2018 Acute massive pulmonary embolism ([facility] H[facility]/ C) 06/20/2018 Multiple sclerosis ([facility]) 11/21/2010 Encounters Date Type Department Care Team Description 11/20/2024 Telephone [facility] [address] [place] [address] Vish Rodriguez MD Schedule Test 11/17/2024 3:45 PM CDT [facility] [address] [place] [address] Vish Rodriguez MD Coronary Artery Disease 11/17/2024 3:12 PM CDT - 11/17/2024 11:59 PM CDT Hospital Encounter [facility] [address] [place] [address] Vish Rodriguez MD Discharge Disposition: Home or Self Care (Routine Discharge) 11/17/2024 Travel 11/16/2024 Telephone [facility] [address] [place] [address] Vish Rodriguez MD Appointment Reminder 11/05/2024 Orders Only [facility] [address] [place] [address] Vish Rodriguez MD 10/20/2024 Abstract [facility] [address] [place] [address] Abstract, Doc Pccl 10/19/2024 Telephone [facility] [address] [place] [address] Vish Rodriguez MD Appointment Request from Last [...] Sex Assigned at Male 06/20/2018 4:03 AM DIRECTOR WORK Legal Sex Male 12:24 AM DIRECTOR WORK Gender Identity Male 06/20/2018 4:03 AM DIRECTOR WORK Sexual Orientation Straight 06/20/2018 4: 03 AM DIRECTOR WORK Last Filed Vital Signs Vital Sign Reading Time Taken Comments Blood Pressure 125/86 11/17/2024 3:43 PM CDT Pulse 72 11/17/2024 3:43 PM CDT Temperature 36.6 C (97.9 F) 06/25/2018 12:50 PM DIRECTOR WORK Respiratory Rate 18 11/17/2024 3:43 PM CDT Oxygen Saturation 96% 11/17/2024 3:43 PM CDT Inhaled Oxygen Concentration - - Weight 136.1 kg (300 lb) 11/17/2024 3:43 PM CDT Height 185.4 cm (6' 1) 11/17/2024 3:43 PM CDT Body Mass Index 39.58 11/17/2024 3:43 PM CDT Plan of Treatment Upcoming Encounters Date Type Department Care Team (Late st Contact Info) Description 12/31/2024 12:[address] [facility] [address] [place] [address] Vish Rodriguez MD [address] [facility] [address] [place] [address] Health Maintenance Due Date Last Done Comments [...] doctor CTA CHEST Today 06/23/2018 3:11 PM DIRECTOR WORK from Last 3 Months or Most Recently Relevant to Health Maintenance Results * ECG 12 lead (HOSPITAL PERFORMED ONLY) (11/17/2024 3:27 PM CDT) 11/17/2024 3:27 PM CDT Narrative [facility] [place] [facility] - 11/18/2024 9:49 AM CDT [address] [place] [address] Test Date: 2024-11-17 Pat Name: JAG FLAHERTYELIDIA Department: 3 Room: Gender: Male Meat Grader: : 1950 Requested By: VISH RODRIGUEZ Order Number: [id number] Reading MD: Vish Rodriguez Measurements Intervals Douglas Rate: 68 P: 50 NH: 206 QRS: 63 QRSD: 109 T: 7 QT: 431 QTc: 459 Interpretive Statements SINUS RHYTHM LOW QRS VOLTAGE IN PRECORDIAL LEADS INCOMPLETE RIGHT BUNDLE BRANCH BLOCK NONSPECIFIC ST & T-WAVE ABNORMALITY Procedure Note Vish Rodriguez MD - 11/18/[address] [place] [address] Test Date: 2024-11-17 Pat Name: JAG RETANA Department: 3 Room: Gender: Male Meat Grader: : 1950 Requested By: VISH RODRIGUEZ Order Number: [id number] Reading MD: Vish Rodriguez Measurements Intervals Douglas Rate: 68 P: 50 NH: 206 QRS: 63 QRSD: 109 T: 7 QT: 431 QTc: 459 Interpretive Statements SINUS RHYTHM LOW QRS VOLTAGE IN PRECORDIAL LEADS INCOMPLETE RIGHT BUNDLE BRANCH BLOCK NONSPECIFIC ST & T-WAVE ABNORMALITY us Vish Rodriguez MD ECG ORDERABLES Final Result [facility] * CTA CHEST (06/23/2018 3:11 PM DIRECTOR WORK) Anatomical Region Laterality Modality Chest Computed Tomogra phy 06/23/2018 6:09 PM DIRECTOR WORK Impressions 06/23/2018 6:21 PM DIRECTOR WORK Impression: Substantial reduction in pulmonary embolic burden [...] 06/23/2018 6:09 PM Narrative 06/23/2018 6:[address] Chest with contrast, pulmonary embolus protocol: [...] as reasonably achievable)/image gently techniques. COMPARISON: 06/19/2018, [facility]. FINDINGS: Chest: There is adequate opacification of [...] as reasonably achievable)/image gently techniques. COMPARISON: 06/19/2018, [facility]. FINDINGS: Chest: There is adequate opacification of [...] 2:36 AM 06/26/2018 12:57 AM Care Teams Core Microarchitect Relationship Specialty Start Date End Date Winnie Turner FNP [address] [place] [address] PCP - General NURSE PRACTITIONER 10/19/24 Vish Rodriguez MD [address] [facility] [address] [place] [address] Physician INTERVENTIONAL CARDIOLOGY 10/19/24
--- OUTSIDE RECORDS SUMMARY | 2024-12-23 08:53 | XMS_ITS | Clinical Summary ---
Author Organization [facility] Address [address] [place] [address] Care Team Providers Care Multicultural Internship Name Role Phone Rocío Patel MD Primary Care Provider [phone] Source Comments [facility] Affiliates and Associated Physician Practices is amultiple site organization consisting of ambulatory clinics and hospital sitesin [place], [place], [place] and [place]. This disclosure is being madepursuant to the Care Everywhere program and may not contain all information available regarding this patient. Last updated 18.[facility] Allergies Active Allergy Reactions Criticality Noted Date [...] Reported on 05/28/2016 4 10/31/19 16 Active [place]-3 Fatty Acids (FISH OIL) 1200 MG Take 1,200 mg by mouth 2 times daily Active Multiple Vitamin (MULTI VITAMIN MENS PO) Take 1 tablet by mouth once daily Active vitamin D, cholecalciferol, 2000 UNITS tablet Take 2,000 Units by mouth once daily Active [id number] CHONDR-MSM PO Take 1 Tab by mouth [...] Comments Blood Pressure 142/106 05/31/2017 12:16 PM FOOD SERVICE SUPERVISOR Pulse 88 05/31/2017 12:16 PM FOOD SERVICE SUPERVISOR Temperature 37.1 C (98.8 F) 12/17/2016 7:58 AM CDT Respiratory Rate 16 05/31/2017 12:16 PM FOOD SERVICE SUPERVISOR Oxygen Saturation 97% 05/31/2017 12:16 PM FOOD SERVICE SUPERVISOR Inhaled Oxygen Concentration - - Weight 138.8 kg (306 lb) 05/31/2017 12:16 PM FOOD SERVICE SUPERVISOR Height 185.4 cm (6' 1) 05/31/2017 12:16 PM FOOD SERVICE SUPERVISOR Body Mass Index 40.37 05/31/2017 12:16 PM FOOD SERVICE SUPERVISOR Plan of Treatment Health Maintenance Due Date [...] Date of Phone Billing Address Personal/Family [address] [place] [address] [employer] MED[employer]ARE ADV SELF PAY NO INSURANCE Member Subscriber Plan / Payer (Ef fective for All Dates) Name:Jag Retana Member ID:Not on file Relation to Subscriber:Not on file Name:JAG RETANA Subscriber ID:Not on file (Home) Address: [address] [place] [address] Payer ID:Not on file Group ID:Not on file Type:Self Pay Address: [place], [place] * Guarantor: JAG RETANA Account Type Relation to Patient Date of Phone Billing Address Personal/Family [address] [place] [address] [employer] MED[employer]ARE ADV SELF PAY NO INSURANCE Member Subscriber Plan / Payer (Ef fective for All Dates) Name:Jag Retana Member ID:Not on file Relation to Subscriber:Not on file Name:JAG RETANA Subscriber ID:Not on file (Home) Address: [address] [place] [address] Payer ID:Not on file Group ID:Not on file Type:Self Pay Address: [place], [place] * Guarantor: JAG RETANA Account Type Relation to Patient Date of Phone Billing Address Personal/Family [address] [place] [address] [employer] MED[employer]ARE ADV SELF PAY NO INSURANCE Member Subscriber Plan / Payer (Ef fective for All Dates) Name:Jag Retana Member ID:Not on file Relation to Subscriber:Not on file Name:JAG RETANA Subscriber ID:Not on file (Home) Address: [address] [place] [id number] Payer ID:Not on file Group ID:Not on file Type:Self Pay Address: [place], [place] Care Teams Multicultural Internship Relationship Specialty Start Date End Date Rocío Patel MD [address] [place] [address] PCP - General Surgery 11/11/15
[2024-12-23 09:09] LABS: Add Urine Microscopic? YES; Appearance Urine Clear (Clear); Glucose Urine UA Negative (Negative); Leukocyte Esterase Ur 3+ LEU/UL (Negative); Nitrate Urine Positive (Negative); Specific Grav Ur 1.020 (1.010-1.020)
== END 2024-12-23 08:46 | disposition home or self-care (01) ==
LOC: CHSLAB 08:46
PROVIDERS: PCP Nurse Practitioner Family; Visit Provider Nurse Practitioner Family
DX: N39.0 Urinary tract infection, site not specified (principal); R82.90 Unspecified abnormal findings in urine
CPT/HCPCS: 81001; 87086; 87186

== ENCOUNTER 2025-04-15 23:05 | Emergency (ER) | payer MEDICARE, SELFPAY ==
--- OUTSIDE RECORDS SUMMARY | 2024-10-08 08:10 | XMS_ITS ---
Author Organization [facility] Address [address] [place], [place] [id number] Care Team Providers Care Yoghurt Maker Name Role Phone DERIC BARKSDALE Unavailable [phone] Johnny Winnie Unavailable Unavailable MARY MURDOCK Unavailable [phone] REASON FOR VISIT *General care Medications Medication SIG (Take, Route, Frequency, Duration) Notes Start Date End Date Status Metoprolol Tartrate 25 MG Tablet Oral; Duration: 90 Days Acti ve Allopurinol 300 MG Tablet Oral; Duration: 90 Days Active Tamsulosin HCl 0.4 MG Capsule Oral; Duration: 90 Days Acti ve Lidocaine 5 % Patch External; Duration: 60 Days Active Eliquis 5 MG Tablet Oral; Duration: 90 Days Active Atorvastatin Calcium 20 MG Tablet Oral; Duration: 90 Days Acti ve amLODIPine Besylate 10 MG Tablet Oral; Duration: 90 Days Acti ve Finasteride 5 MG Tablet Oral; Duration: 90 Days Active Dutasteride 0.5 MG Capsule TAKE 1 CAPSUL E BY MOUTH EVERY DAY Oral; Duration: 90 Days Active Lisinopril 40 MG Tablet Oral; Duration: 90 Days Active DULoxetine HCl 30 MG Capsule Delayed Release Particles Oral; Duration: 90 Days Acti ve clonazePAM 1 MG Tablet Oral; Duration: 30 Days Active Social History Social History Additional Details Category Social Info Options Details Migrated Social History Migrated Social History History of tobacco use : , Smoking Status : Never smoked Vital Signs Height 73.00 in 10/08/2024 Weight 292 lbs 10/08/2024 BMI 38.52 kg/m2 10/08/2024 Height-cm 185.42 cm 10/08/2024 Weight-kg 132.45 kg 10/08/2024 Encounters Encounter Location Date Provider Diagnosis [address] [id number] 10/08/2024 MARY MATHIEU Tinea unguium B35.1 ; Pain in right toe(s) M79.674 ; Pain in left toe(s) M79.675 ; Atherosclerosis of jena arteries of extremities with intermittent claudication, bilateral legs I70.213 and Type 2 diabetes mellitus with other circulatory complications E11.59 Assessments Encounter Date Diagnosis (ICD Code) Assessment Notes Treatment Notes Treatment Clinical Notes Section Notes 10/08/2024 Tinea unguium (ICD-10 - B35.1) NAIL DEBRIDEMENT: Nails 1-5 Bilateral were debrided extensively with nail nippers and emery board, reducing length and girth to pink healthy tissue with any subungual debris and necrotic tissue removed 10/08/2024 Pain in right toe(s) (ICD-10 - M79.674) 10/08/2024 Pain in left toe(s) (ICD-10 - M79.675) 10/08/2024 Atherosclerosis of jena arteries of extremities with intermittent claudication, bilateral legs (ICD-10 - I70.213) 10/08/2024 Type 2 diabetes mellitus with other circulatory complications (ICD-10 - E11.59) Diabetic Foot Care: The patient was educated on diabetes and the lower extremity. The patient was instructed to check his feet daily to report any problems or signs of infection immediately. The patient was provided written information on Diabetic Foot Care as well as the Amputation Prevention Guide. Plan Of Treatment Treatment Notes Assessment Notes Tinea unguium NAIL DEBRIDEMENT: Na ils 1-5 Bilateral were debrided extensively with nail nippers and emery board, reducing length and girth to pink healthy tissue with any subungual debris and necrotic tissue removed Type 2 diabetes mellitus wit h other circulatory complications Diabetic Foot Care: The patient was educated on diabetes and the lower extremity. The patient was instructed to check his feet daily to report any problems or signs of infection immediately. The patient was provided written information on Diabetic Foot Care as well as the Amputation Prevention Guide. Next Appt Details Follow Up: 10 - 12 weeks, Re ason: At-Risk Foot care, sooner if problems develop. Provider Name:MARY CAMARILLO, 05/20/2025 01:40:00 PM, [address] [place], [place], [phone], History and Physical Notes * HPI (History of Present Illness) Category Sub-Category Detail Notes Category Not es HPI General care Patient presents to the office for diabetic foot care. Patient states that their nails are thickened, elongated and painful. Patient states that it is aggravated by shoe gear. Onset is gradual., Patient is taking prescription blood thinners., Date last seen by Dr. Turner was 08/2024., Initials mca Examination Category Sub-Category Detail Notes Category Not es Dermatologic Skin findings: Skin is thin, at rophic and lacking pedal hair Nail pathology: Nails 1, 2, 3, 4, an d 5 bilateral are elongated, thick, discolored, and dystrophic with subungual debris. They are painful to palpation Neurologic Gross sensation Grossly intact t o light touch. There is negative Tinel's sign Vascular Dorsalis pedis pulse: 1/4 bilateral Edema: No edema bilateral Capillary refill: greater than 3 secon ds Posterior tibial pulse: 0/4 bilateral Physical Examination General appearance: Alert, pleasant, well-nourished and in no acute distress Musculoskeletal Muscle Strength Muscle strength is 5/5 in regards to dorsiflexion, plantarflexion, inversion, and eversion in bilateral lower extremities Progress Notes * CARINA NICHOLAS MDOB: 2 (74 yo M)Acc No.[id number]:10/08/2024 Patient: Hank NARAYANCARINA Paul Provider: Phuong MURDOCK :1950 A ge:74 Y S ex:Male Date:10/08/2024 Address:[address] [place] [address] Subjective: * Chief Complaints: * * General care * HPI: H PI: General care P atient presents to the office for diabetic foot care. Patient states that their nails are thickened, elongated and painful. Patient states that it is aggravated by shoe gear. Onset is gradual., Patient is taking prescription blood thinners., Date last seen by Dr. Turner was 08/2024., Initials mca. * ROS: G eneral / Constitutional: Patient denies w eakness. R espiratory: Patient denies c hronic cough, shortness of breath, sputum production. C ardiovascular: Patient denies c hest pain, history of [place], irregular heartbeat. M usculoskeletal: Patient complains of h ammertoes. P eripheral Vascular: Patient denies b lanching of skin, cold extremities, decreased sensation in extremities. S kin: Patient complains of n ail changes, fungal nails. ? N eurologic: Patient denies d izziness, gait abnormality, headache. * Family History: F ather: PRN - Father: . M other: PRN - Mother: . B rother: SIB - Brother: . S ister: SIB - Sister: . F amily History Verified.. * Social History: M igrated Social History: M igrated Social History: History of tobacco use : , Smoking Status : Never smoked. Social History Verified. * Medications: T akingLidocaine 5 % Patch External Tamsulosin HCl 0.4 MG Capsule Oral Allopurinol 300 MG Tablet Oral clonazePAM 1 MG Tablet Oral DULoxetine HCl 30 MG Capsule Delayed Release Particles Oral amLODIPine Besylate 10 MG Tablet Oral Atorvastatin Calcium 20 MG Tablet Oral Lisinopril 40 MG Tablet Oral Dutasteride 0.5 MG Capsule TAKE 1 CAPSULE BY MOUTH EVERY DAY Oral Finasteride 5 MG Tablet Oral Metoprolol Tartrate 25 MG Tablet Oral Eliquis 5 MG Tablet Oral Medication List reviewed and reconciled with the patientTaking Lidocaine 5 % Patch External Taking Tamsulosin HCl 0.4 MG Capsule Oral Taking Allopurinol 300 MG Tablet Oral Taking clonazePAM 1 MG Tablet Oral Taking DULoxetine HCl 30 MG Capsule Delayed Release Particles Oral Taking amLODIPine Besylate 10 MG Tablet Oral Taking Atorvastatin Calcium 20 MG Tablet Oral Taking Lisinopril 40 MG Tablet Oral Taking Dutasteride 0.5 MG Capsule TAKE 1 CAPSULE BY MOUTH EVERY DAY Oral Taking Finasteride 5 MG Tablet Oral Taking Metoprolol Tartrate 25 MG Tablet Oral Taking Eliquis 5 MG Tablet Oral Medication List reviewed and reconciled with the patient Objective: * Vitals: W t:292lbs, Wt-k.45 kg, Ht: 73.00 in, Ht-cm: 185.42 cm, BMI:38.52Index, Body Surface Area: 2.61. * Examination: P hysical Examination: General appearance: A lert, pleasant, well-nourished and in no acute distress. D ermatologic: Skin findings: S kin is thin, atrophic and lacking pedal hair. Nail pathology: N ails 1, 2, 3, 4, and 5 bilateral are elongated, thick, discolored, and dystrophic with subungual debris. They are painful to palpation. ? V ascular: Dorsalis pedis pulse: 1 /4 b ilateral. Posterior tibial pulse: 0 /4 bilateral. Capillary refill: g reater than 3 seconds. Edema: N o edema bilateral. N eurologic: Gross sensation G rossly intact to light touch. There is negative Tinel's sign. M usculoskeletal: Muscle Strength M uscle strength is 5/5 in regards to dorsiflexion, plantarflexion, inversion, and eversion in bilateral lower extremities. ? Assessment: * Assessment: 1. T inea unguium - B35.1 (Primary) 2 . P ain in right toe(s) - M79.674? 3. P ain in left toe(s) - M79.675 4 . A therosclerosis of jena arteries of extremities with intermittent claudication, bilateral legs - I70.213 5 . T ype 2 diabetes mellitus with other circulatory complications - E11.59 Plan: * Treatment: 2. T ype 2 diabetes mellitus with other circulatory complications Notes: Diabetic Foot Care: The patient was educated on diabetes and the lower extremity. The patient was instructed to check his feet daily to report any problems or signs of infection immediately. The patient was provided written information on Diabetic Foot Care as well as the Amputation Prevention Guide. * Immunizations: Immunization record has been reviewed and updated. * Follow Up: 1 0 - 12 weeks (Reason: At-Risk Foot care, sooner if problems develop.) Billing Information: * Visit Code: 19878 Office Visit, Est Pt., Level 3. * Procedure Codes: * Electronic signature of ZACARIAS MURDOCK DPM on 04/16/2025 at 12:32 AM RIDING TEACHER Sign off status: Pending * Provider: Phuong MURDOCK Date: 0 10/08/2024 Generated for Cornelia russ/Bam/Yelitzaitting on: 1 06/17/2024 12:32 AM RIDING TEACHER
--- OUTSIDE RECORDS SUMMARY | 2025-03-11 07:50 | XMS_ITS ---
Author Organization [facility] Address [address] [place], [place] [id number] Care Team Providers Care Residential Youth Counselor Name Role Phone DERIC BARKSDALE Unavailable [phone] Winnie Turner Unavailable Unavailable MARY MURDOCK Unavailable [phone] Allergies No Known Allergies REASON FOR VISIT *General care Medications Medication SIG (Take, Route, Frequency, Duration) Notes Start Date End Date Status amLODIPine Besylate 10 MG Tablet Oral; Duration: 90 Days Acti ve Atorvastatin Calcium 20 MG Tablet Oral; Duration: 90 Days Acti ve Finasteride 5 MG Tablet Oral; Duration: 90 Days Active Lisinopril 40 MG Tablet Oral; Duration: 90 Days Active Dutasteride 0.5 MG Capsule TAKE 1 CAPSUL E BY MOUTH EVERY DAY Oral; Duration: 90 Days Active clonazePAM 1 MG Tablet Oral; Duration: 30 Days Active DULoxetine HCl 30 MG Capsule Delayed Release Particles Oral; Duration: 90 Days Acti ve Tamsulosin HCl 0.4 MG Capsule Oral; Duration: 90 Days Acti ve Allopurinol 300 MG Tablet Oral; Duration: 90 Days Active Lidocaine 5 % Patch External; Duration: 60 Days Active Metoprolol Tartrate 25 MG Tablet Oral; Duration: 90 Days Acti ve Eliquis 5 MG Tablet Oral; Duration: 90 Days Active Social History Social History Additional Details Category Social Info Options Details Migrated Social History Migrated Social History History of tobacco use : , Smoking Status : Never smoked Vital Signs Height 73.00 in 03/11/2025 Weight 292 lbs 03/11/2025 BMI 38.52 kg/m2 03/11/2025 Height-cm 185.42 cm 03/11/2025 Weight-kg 132.45 kg 03/11/2025 Encounters Encounter Location Date Provider Diagnosis [address] [id number] 03/11/2025 MARY MURDOCK Tinea unguium B35.1 ; Pain in right toe(s) M79.674 ; Pain in left toe(s) M79.675 ; Atherosclerosis of eyak arteries of extremities with intermittent claudication, bilateral legs I70.213 and Type 2 diabetes mellitus with other circulatory complications E11.59 Assessments Encounter Date Diagnosis (ICD Code) Assessment Notes Treatment Notes Treatment Clinical Notes Section Notes 03/11/2025 Tinea unguium (ICD-10 - B35.1) NAIL DEBRIDEMENT: Nails 1-5 Bilateral were debrided extensively with nail nippers and emery board, reducing length and girth to pink healthy tissue with any subungual debris and necrotic tissue removed 03/11/2025 Pain in right toe(s) (ICD-10 - M79.674) 03/11/2025 Pain in left toe(s) (ICD-10 - M79.675) 03/11/2025 Atherosclerosis of eyak arteries of extremities with intermittent claudication, bilateral legs (ICD-10 - I70.213) Patient educated on risks and aggravating factors of PVD, including conservative treatment options such as a diet and exercise regimen to aid in slowing progression of vascular disease. Check and protect LE bilateral daily. Call if any changes or concerns. 03/11/2025 Type 2 diabetes mellitus with other circulatory [...] any subungual debris and necrotic tissue removed Atherosclerosis of eyak ar teries of extremities with intermittent claudication, bilateral legs Patient educated on risks and aggravatin g factors of PVD, including conservative treatment options such as a diet and exercise regimen to aid in slowing progression of vascular disease. Check and protect LE bilateral daily. Call if any changes or concerns. Type 2 diabetes mellitus wit h other [...] care, sooner if problems develop. Provider Name:MARY Levi CAMARILLO, 05/20/2025 01:40:00 PM, [address] [place] [address], [phone], History and Physical Notes * HPI (History of Present Illness) Category Sub-Category Detail Notes Category Not es HPI General care Patient presents to the office for diabetic foot care. Patient states that their nails are thickened, elongated and painful. Patient states that it is aggravated by shoe gear. Onset is gradual., Patient is taking prescription blood thinners., Date last seen by Dr. uTrner was 11/2024., Initials nd Examination Category Sub-Category Detail Notes Category Not [...] CARINA NICHOLAS MDOB: 2 (74 yo M)Acc No.[id number]:03/11/2025 Patient: CARINA PANDYA Provider: Phuong MURDOCK :1950 A ge:74 Y S ex:Male Date:03/11/2025 Address:[address] [place] [address] [address] [id number] Subjective: * Chief Complaints: * * General care * HPI: H PI: General care P bruna presents to the office for diabetic foot care. Patient states that their nails are thickened, elongated and painful. Patient states that it is aggravated by shoe gear. Onset is gradual., Patient is taking prescription blood thinners., Date last seen by Dr. Turner was 11/2024., Initials nd. * ROS: G eneral / Constitutional: Patient denies w eakness. R espiratory: Patient denies c hronic cough, shortness of breath, sputum production. C ardiovascular: Patient denies c hest pain, history of ME, irregular heartbeat. M usculoskeletal: Patient complains of h ammertoes. P eripheral Vascular: Patient denies b lanching of skin, cold extremities, decreased sensation in extremities. S kin: Patient complains of n ail changes, fungal nails. ? N eurologic: Patient denies d izziness, gait abnormality, headache. * Medical History: Denies Past Medical History No Medical History Documented Medical History Verified * Surgical History: Denies Past Surgical History. Surgical History verified. * Hospitalization/Major Diagno stic Procedure: Denies Past Hospitalization. Hospitalization Verified. * Family History: F ather: PRN - [...] List reviewed and reconciled with the patient * Allergies: N .K.D.AEmmayesAllergies Verified. Objective: * Vitals: W t:292lbs, Wt-k.45 kg, [...] - M79.675 4 . A therosclerosis of eyak arteries of extremities with intermittent claudication, bilateral legs - I70.213 5 . T ype 2 diabetes mellitus with other circulatory complications - E11.59 Plan: * Treatment: 2. A therosclerosis of eyak arteries of extremities with intermittent claudication, bilateral legs Notes: Patient educated on risks and aggravating factors of PVD, including conservative treatment options such as a diet and exercise regimen to aid in slowing progression of vascular disease. Check and protect LE bilateral daily. Call if any changes or concerns. 3. T ype 2 diabetes mellitus with other circulatory complications Notes: Diabetic Foot Care: The patient was educated on diabetes and the lower extremity. The patient was instructed to check his feet daily to report any problems or signs of infection immediately. The patient was provided written information on Diabetic Foot Care as well as the Amputation Prevention Guide. * Follow Up: 1 0 - 12 weeks (Reason: At-Risk Foot care, sooner if problems develop.) Billing Information: * Procedure Codes: * Electronic signature of ZACARIAS MURDOCK DPM on 04/16/2025 at 12:32 AM ETHYLENE COMPRESSOR OPERATOR Sign off status: Pending * Provider: Phuong MURDOCK Date: 05/11/2024 Generated for Cornelia russ/Bam/Yelitzaitting on: 06/17/2024 12:32 AM ETHYLENE COMPRESSOR OPERATOR
--- NOTE | ~2025-04-15 | CT_ITS ---
CTA CHEST CLINICAL HISTORY: chest pain, hypoxia, r/o PE . COMPARISON: Chest x-ray today TECHNIQUE: Helical CTA performed from thoracic inlet to upper abdomen 100 mL Omnipaque 350 Coronal, sagittal reformats. Multiplanar MIPS CT images acquired with automatic exposure control for dose reduction DLP: 1168 mGy-cm FINDINGS: Pulmonary arteries: No PE. Thoracic Aorta: No dissection or aneurysm. Heart/pericardium: Coronary artery calcifications. RV/LV ratio: Normal. Lungs/Pleura: Clear. Except bibasilar dependent changes. Tracheobronchial tree: Patent. Nodes: No enlarged nodes. Bones: No acute bony abnormality. Soft tissues: Unremarkable. Visualized upper abdomen: Unremarkable. IMPRESSION: 1. No PE or other acute cardiopulmonary findings. Reviewed, dictated and finalized at location R. T METAL LAY OUT WORKER
--- NOTE | ~2025-04-15 | XR_ITS ---
Examination: XR chest 1V Clinical History: chest pain MIDDLE OF CHEST Comparison: Chest x-ray 02/06/2024 Technique: Portable AP Findings: Heart size prominent. Lungs clear. Except minimal bibasilar atelectasis. No acute bony abnormality. IMPRESSION: 1. No acute cardiopulmonary findings given portable technique. Reviewed, dictated and finalized at location R. LATORY AFFAIRS SPECIALIST
[2025-04-15 23:01] VITALS: BP 149/85; PULSE 73; RESP 18; TEMP 36.7; O2SAT 93
[2025-04-15 23:11] VITALS: BP 149/85; PULSE 75; RESP 12; O2SAT 92; O2SAT 93
[2025-04-15 23:12] VITALS: PULSE 77
--- NOTE | 2025-04-15 23:14 | ECG_ITS ---
Test Date: 2025-04-15 23:22:18 Measurements Intervals [place] Rate: 77 P: 54 MS: 197 QRS: 16 QRSD: 114 T: 43 QT: 406 QTc: 462 Interpretive Statements SINUS RHYTHM INCOMPLETE RIGHT BUNDLE BRANCH BLOCK NONSPECIFIC ST & T-WAVE ABNORMALITY- DIFFUSE LEADS BASELINE ARTIFACT- I, II, AVR, V1 BORDERLINE ECG No previous ECG available for comparison Electronically Signed On 04-16-2025 06:23:53 AIRCRAFT SERVICER by Giovanny Lino D.O.
[2025-04-15 23:30] LABS: Hematocrit 45.0 % (42.0-52.0); Hemoglobin 14.4 g/dL (14.0-18.0); Immature Granulocyte Percent A 0.4 % (0-0.5); Lymphocytes Absolute Auto 2.47 K/mm3 (0.9-3.2); Mean Corpuscular HGB Conc 32.0 g/dl (32-36); Mean Corpuscular Hemoglobin 27.8 pg (26-34); Mean Corpuscular Volume 86.9 fl (80-100); Nucleated Red Blood Cells Absolute Auto 0.000 K/mm3 (0.0-0.012); Nucleated Red Blood Cells Perc 0.0 % (0.0-0.2); Platelet Count Result 209 k/mm3 (150-375); Red Blood Count 5.18 M/mm3 (4.6-6.20); White Blood Count 8.1 K/mm3 (4.5-10.0)
[2025-04-15 23:42] LABS: Alanine Aminotransferase 45 U/L (6-50); Albumin Level 4.0 g/dL (3.5-5.1); Alkaline Phosphatase 72 U/L (38-126); Anion Gap 4 mmol/L (4-12); Aspartate Amino Transferase 36 U/L (17-59); Bilirubin,Total 0.4 mg/dL (0.2-1.3); Blood Urea Nitrogen 18 mg/dL (9-20); Calcium 9.2 mg/dL (8.4-10.2); Carbon Dioxide 27 mmol/L (22-30); Chloride 105 mmol/L (98-107); Estimated CRCL calculation 84 ml/min; Estimated Glomerular Filt Rate > 60; Glucose 134 mg/dL (65-110); INR 1.3; Lipase 53 U/L (23-300); Potassium 3.9 mmol/L (3.4-5.0); Prothrombin Time 15.7 Seconds (11.1-14.7); Sodium 136 mmol/L (137-145); Total Protein 7.7 g/dL (6.3-8.2)
[2025-04-15 23:43] LABS: Partial Thromboplastin Time 38.4 Seconds (22.3-36.8)
--- NOTE | 2025-04-15 23:49 | ED.CHESTPAIN ---
HPI - Chest Pain General Chief Complaint: Chest Pain Stated Complaint: CHEST PAIN Time Seen by Provider: 04/15/25 23:19 Source: patient, family and EMS Mode of arrival: EMS Limitations: no limitations History of Present Illness HPI narrative: This is a 74-year-old male with history of MS, hypertension, diabetes, PE on Eliquis who presents to the ED for chest pain. Patient states that he was sleeping with the when he was woken up with a lower sternal chest pain described as a sharpness. This not radiating anywhere. He states that it lasted 15-20 minutes before resolving on its own. He has no cardiac history that he is aware of. He has had a prior large PE that did require mechanical removal and has been on Eliquis for this. He last saw cardiology several months ago and was doing well at that time from their standpoint. Denies shortness of breath, nausea vomiting abdominal pain. Related Data Home Medications ?Medication ?Instructions ?Recorded ?Confirmed ?Last Taken ?Type clonazepam 1 mg tablet 1 mg PO DIRECTED 05/21/19 02/24/24 11/24/20 History tamsulosin 0.4 mg capsule (Flomax) 0.4 mg PO DAILY 05/14/22 02/24/24 Unknown History dutasteride 0.5 mg capsule 0.5 mg PO DAILY 10/23/23 02/24/24 11/18/23 History Allergies Allergy/AdvReac Type Severity Reaction Status Date / Time diclofenac (Cataflam) Allergy Intermediate hypertensio Verified 04/15/25 23:12 n oseltamivir (Tamiflu) Allergy Intermediate Delusions Verified 04/15/25 23:12 Review of Systems Review of Systems: Gen.: Denies fevers or chills Eyes: Denies eye pain or visual change ENT: Denies congestion Respiratory: Denies shortness of breath or cough CV: As per HPI GI: Denies abdominal pain nausea, emesis or diarrhea denies burning, urgency, frequency or hematuria Musculoskeletal: Denies back pain or muscle pain Neuro: Denies numbness, tingling, weakness or focal weakness Skin: Denies rash Except as documented, all other systems reviewed and negative PMFSH Past Medical History Medical History Prediabetes Benign prostatic hyperplasia Cerebrovascular accident Hypertension Chronic anticoagulation Pulmonary embolism Anxiety Erectile dysfunction Multiple sclerosis Surgical History Surgical History History of embolectomy Family History Family History Mother Hypertension Brother Hypertension Sister Hypertension Father Malignant neoplasm of prostate Social History Social History Social History: Surrogate medical decision maker: Yolis Retana, spouse. Code status: Full code. Smoking packs per day: 0.5 Smoking cigarettes per day: 10.0 Years smoked: 15 Smoking pack-years: 7.50 Smoking status: Former smoker Tobacco type: cigarettes Second hand tobacco smoke exposure: Yes Smoking end date: 10/05/91 Alcohol intake: former Drinks per week: 12 Substance use: never Substance use type: does not use Lack of Transportation: No Lack of Food: Never True Current Housing: I Have Housing Concerned About Future Housing: No Difficulty Paying Gas/Electric Bills: No Difficulty Paying for Meds: No Currently Unemployed: No Education: Master's Degree or Higher Difficulty w/ Childcare or Family Care: No Living arrangements: with family Additional living arrangements comments: Lives with spouse in [place]. 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 Spiritual care concerns: No Exam Narrative: APPEARANCE: No acute distress, nontoxic, resting in bed EYES: EOMI HEENT: Normocephalic, atraumatic, OMM RESPIRATORY: No respiratory distress Clear to auscultation bilaterally with no rhonchi wheezing or rales. CARDIOVASCULAR: Regular rate and rhythm without murmurs rubs or gallops. ABDOMINAL: Soft, nontender, nondistended, no rebound or guarding MUSCULOSKELETAl: Moves all extremities. No clubbing, cyanosis or edema. NEURO: Awake and alert. Following commands, speech normal, no focal deficits SKIN:: Warm, dry. No rashes lesions or abrasions PSYCHIATRIC: Normal affect/mood, Course Vital Signs Vital signs: Vital Signs Temperature 98.1 F 04/15/25 23:01 Pulse Rate 73 04/15/25 23:01 Respiratory Rate 18 04/15/25 23:01 Blood Pressure 149/85 H 04/15/25 23:01 Pulse Oximetry 93 04/15/25 23:01 Oxygen Delivery Room Air 04/15/25 23:01 Temperature 98.1 F 04/15/25 23:01 Pulse Rate 81 04/16/25 04:25 Respiratory Rate 19 04/16/25 04:25 Blood Pressure 126/77 04/16/25 04:25 Pulse Oximetry 94 04/16/25 04:25 Oxygen Delivery Nasal Cannula 04/16/25 01:15 Oxygen Flow Rate 2 04/16/25 01:15 [facility] Narrative Medical decision making narrative: 74-year-old male Presenting for chest pain. On initial evaluation patient was in no acute distress afebrile, hemodynamic stable. Differentials include but are not limited to: ACS, PE, PNA, bronchitis, costochondritis, pleurisy, viral syndrome, GERD Notable exam findings: Heart and lungs clear. Chest wall nontender. I personally reviewed the patient's lab result. Notable lab findings: CBC and CMP without significant abnormalities. I personally reviewed the patient's images and interpret as follows: Chest x-ray: Normal cardiac silhouette, no consolidations, no pleural effusions, no pulmonary vascular congestion I personally reviewed the patient's EKGs: Normal sinus rhythm rate of 77, normal axis, incomplete right bundle-branch block, nonspecific T-wave changes, no ST changes Repeat EKG: Normal sinus rhythm rate of 75, normal axis, incomplete right bundle-branch block no ST changes nonspecific T-wave change, no significant change from earlier CTA chest showed no acute process. Patient remained asymptomatic while in the ED the exact chest pain this time. Advised patient to follow-up with PCP next week. Patient given strict return precautions Differential Diagnosis Differential Diagnosis: ACS, PE, PNA, bronchitis, costochondritis, pleurisy, viral syndrome, GERD Lab Data [facility] Lab Attestation statement: I personally reviewed the patient's lab results. 04/15/25 23:20 04/15/25 23:20 Labs: Lab Results 04/15/25 04/16/25 Range/Units 23:20 02:29 WBC 8.1 (4.5-10.0) K/mm3 RBC 5.18 (4.6-6.20) M/mm3 Hgb 14.4 (14.0-18.0) g/dL Hct 45.0 (42.0-52.0) % MCV 86.9 (80-100) fl MCH 27.8 (26-34) pg MCHC 32.0 (32-36) g/dl RDW 14.7 H (11.5-14.5) % Plt Count 209 (150-375) k/mm3 MPV 9.8 (7.4-10.4) fl Immature Gran % (Auto) 0.4 (0-0.5) % Neut % (Auto) 57.8 (45.5-73.1) % Lymph % (Auto) 30.4 (18.3-44.2) % [place] % (Auto) 8.4 (2.6-8.5) % Eos % (Auto) 2.3 (0-4.4) % Baso % (Auto) 0.7 (0.2-1.2) % Lymph # (Auto) 2.47 (0.9-3.2) K/mm3 [place] # (Auto) 0.7 H (0.1-0.6) K/mm3 Eos # (Auto) 0.2 (0-0.3) K/mm3 Baso # (Auto) 0.1 (0.0-0.1) K/mm3 Abs Immat Gran (auto) 0.03 (0.00-0.031) K/mm3 Absolute Neuts (auto) 4.7 (1.3-6.7) K/mm3 Absolute Nucleated RBC 0.000 (0.0-0.012) K/mm3 Nucleated RBC % 0.0 (0.0-0.2) % PT 15.7 H (11.1-14.7) Seconds INR 1.3 APTT 38.4 H (22.3-36.8) Seconds Sodium 136 L (137-145) mmol/L Potassium 3.9 (3.4-5.0) mmol/L Chloride 105 (98-107) mmol/L Carbon Dioxide 27 (22-30) mmol/L Anion Gap 4 (4-12) mmol/L BUN 18 (9-20) mg/dL Creatinine 1.02 (0.7-1.3) mg/dL Estim Creat Clear Calc 84 ml/min Estimated GFR > 60 (59 - ) Glucose 134 H (65-110) mg/dL Calcium 9.2 (8.4-10.2) mg/dL Total Bilirubin 0.4 (0.2-1.3) mg/dL AST 36 (17-59) U/L ALT 45 (6-50) U/L Alkaline Phosphatase 72 (38-126) U/L Troponin I < 0.012 < 0.012 (0.000-0.034) ng/mL Total Protein 7.7 (6.3-8.2) g/dL Albumin 4.0 (3.5-5.1) g/dL Lipase 53 (23-300) U/L Imaging Data Radiologist's impression: ITS Impressions Chest X-Ray 04/16/25 06:51 IMPRESSION: 1. No acute cardiopulmonary findings given portable technique. Chest CTA 04/16/25 06:52 IMPRESSION: 1. No PE or other acute cardiopulmonary findings. Discharge Plan Discharge Clinical Impression: Hx of multiple sclerosis Chest pain Qualifiers: Chest pain type: unspecified Qualified Code(s): R07.9 - Chest pain, unspecified Patient Disposition: Home Condition: Stable Instructions: Antibiotic Form, Chest Pain (ED) Additional Instructions: Follow-up with your PCP in the next week for re-evaluation. Return to the ED for any new or worsening symptoms. Patient Language: Cypriot Prescriptions: No Action clonazepam 1 mg tablet 1 mg PO DIRECTED Rx Instructions: 1 MG MID DAY AND 2 MG HS psyllium husk [Metamucil] 0.4 gram capsule 0.4 g PO DAILY PRN (Reason: loose stools) Qty: 30 0RF tamsulosin [Flomax] 0.4 mg capsule 0.4 mg PO DAILY diphenoxylate-atropine [Lomotil] 2.5-0.025 mg tablet 1 tablet PO TID PRN (Reason: diarrhea) Qty: 90 5RF dutasteride 0.5 mg capsule 0.5 mg PO DAILY duloxetine 30 mg capsule,delayed release(DR/EC) See Rx Instructions .ROUTE .COMPLEX Qty: 180 3RF Dose Instruction: TAKE 2 CAPSULES BY MOUTH ONCE DAILY Rx Instructions: TAKE 2 CAPSULES BY MOUTH ONCE DAILY amlodipine 10 mg tablet 10 mg PO DAILY Qty: 90 3RF dicyclomine 20 mg tablet See Rx Instructions .ROUTE .COMPLEX Qty: 360 0RF Dose Instruction: 20 MG ORALLY FOUR TIMES DAILY NEEDED FOR LOOSE STOOLS Rx Instructions: 20 MG ORALLY FOUR TIMES DAILY NEEDED FOR LOOSE STOOLS atorvastatin 20 mg tablet See Rx Instructions .ROUTE .COMPLEX Qty: 90 3RF Dose Instruction: TAKE 1 TABLET DAILY Rx Instructions: TAKE 1 TABLET DAILY lidocaine 5 % adhesive patch,medicated See Rx Instructions .ROUTE .COMPLEX Qty: 60 2RF Dose Instruction: APPLY 1 PATCH TOPICALLY TO SKIN DAILY. (MAY BE LEFT ONUP TO 12 HOURS IN A 24 HOURPERIOD) Rx Instructions: APPLY 1 PATCH TOPICALLY TO SKIN DAILY. (MAY BE LEFT ONUP TO 12 HOURS IN A 24 HOURPERIOD) azelastine 137 mcg (0.1 %) spray,non-aerosol 2 spray intranasal BID Qty: 90 2RF Eliquis 5 mg tablet 5 mg PO Q12H Qty: 180 1RF Mounjaro 7.5 mg/0.5 mL pen injector See Rx Instructions .ROUTE .COMPLEX Qty: 2 8RF Dose Instruction: 7.5 MG (0.5 ML) SUBCUTANEOUSLY WEEKLY Rx Instructions: 7.5 MG (0.5 ML) SUBCUTANEOUSLY WEEKLY metoprolol tartrate 25 mg tablet See Rx Instructions .ROUTE .COMPLEX Qty: 60 0RF Dose Instruction: TAKE 1 TABLET TWICE A DAY Rx Instructions: TAKE 1 TABLET TWICE A DAY allopurinol 300 mg tablet See Rx Instructions .ROUTE .COMPLEX Qty: 90 0RF Dose Instruction: TAKE 1 TABLET BY MOUTH DAILY Rx Instructions: TAKE 1 TABLET BY MOUTH DAILY lisinopril 40 mg tablet See Rx Instructions .ROUTE .COMPLEX Qty: 10 0RF Dose Instruction: TAKE 1 TABLET DAILY Rx Instructions: TAKE 1 TABLET DAILY Follow-up/Referrals: Rickie Maldonado MD [Physician, Internal Medicine]
[2025-04-15 23:53] LABS: Troponin I < 0.012 ng/mL (0.000-0.034)
--- OUTSIDE RECORDS SUMMARY | 2025-04-16 00:33 | XMS_ITS | Clinical Summary ---
Author Organization [facility] Address [facility] [place] [address] Care Team Providers Care Hoop Flaring Machine Operator Name Role Phone Vish Gifford MD Unavailable [phone] Winnie Turner Primary Care Provider [phone] Allergies Active Allergy Reactions Criticality Noted Date [...] mouth. Active Glucosa-Chondr- Na Chondr-MSM (GLUCOSAMINE-CH ONDROITIN-MSM) [phone] MG Tab Take 1 tablet by mouth. [...] (THERABREATH DRY MOUTH) Lozenge As directed Active [place]-3 Fatty Acids (EQL OMEGA 3 FISH OIL) [...] thrombosis 07/30/2018 Essential hypertension 07/30/2018 Pulmonary embolism 06/20/2018 Acute massive pulmonary embolism 06/20/2018 Multiple sclerosis 11/21/2010 Family History Medical History Relation Comments Hypertension [...] Sex Assigned at Male 06/20/2018 4:03 AM BRAND ENGINEER Legal Sex Male 12:24 AM BRAND ENGINEER Gender Identity Male 06/20/2018 4:03 AM BRAND ENGINEER Sexual Orientation Straight 06/20/2018 4: 03 AM BRAND ENGINEER Last Filed Vital Signs Vital Sign Reading Time Taken Comments Blood Pressure 125/86 11/17/2024 3:43 PM CDT Pulse 72 11/17/2024 3:43 PM CDT Temperature 36.6 C (97.9 F) 06/25/2018 12:50 PM BRAND ENGINEER Respiratory Rate 18 11/17/2024 3:43 PM CDT Oxygen Saturation 96% 11/17/2024 3:43 PM CDT Inhaled Oxygen Concentration - - Weight 136.1 kg (300 lb) 11/17/2024 3:43 PM CDT Height 185.4 cm (6' 1) 11/17/2024 3:43 PM CDT Body Mass Index 39.58 11/17/2024 3:43 PM CDT Plan of Treatment Health Maintenance Due Date Last Done Comments Colorectal Cancer Screening Colonoscopy (10 Years) 1950 Hepatitis C 08/28/1969 DTaP, Tdap and Td Vaccines (1 - Tdap) 08/28/1970 RSV Immunization or 60+ Years (1 - Risk 60-74 years 1-dose series) 2011 Annual Medicare Wellness Visit 08/28/2016 Zoster Vaccines (2 of 2) 04/15/2018 02/18/2018, 07/06 COVID-19 Vaccine ( season) 2025 04/10/2021, 06/28/2020, 06/07/2020 Influenza Adult (#1) 2025 02/24/2024, 02/26/2023, 02/15/2022, Additional history exists AAA SCREENING Completed 06/23/2018, 04/03/2017 Pneumococcal Vaccine: 50+ Years Completed 02/03/2019, 02/18/2018 Hepatitis A Vaccines Aged Out No long er eligible based on patient's age to complete this topic Meningococcal B Vaccine Aged Out No l onger eligible based on patient's age to complete this topic Meningococcal Vaccine Aged Out No john abimbola eligible based on patient's age to complete this topic RSV Immunizations Under 20 Months Aged Out No longer eligible based on patient's age to complete this topic Procedures Procedure Name Priority Date/Time Associated Diagnosis Comments CTA CHEST Today 06/23/2018 3:11 PM BRAND ENGINEER from Last 3 Months or Most Recently Relevant to Health Maintenance Results * CTA CHEST (06/23/2018 3:11 PM BRAND ENGINEER) Anatomical Region Laterality Modality Chest Computed Tomogra phy 06/23/2018 6:09 PM BRAND ENGINEER Impressions 06/23/2018 6:21 PM BRAND ENGINEER Impression: Substantial reduction in pulmonary embolic burden [...] 06/23/2018 6:09 PM Narrative 06/23/2018 6:[address] Chest with contrast, pulmonary embolus protocol: [...] as reasonably achievable)/image gently techniques. COMPARISON: 06/19/2018, [facility]. FINDINGS: Chest: There is adequate opacification [...] as reasonably achievable)/image gently techniques. COMPARISON: 06/19/2018, [facility]. FINDINGS: Chest: There is adequate opacification [...] Recently Relevant to Health Maintenance Insurance AETNA MEDICARE Advance Directives * Full Code (Latest Code Status on File) Date Activated Date Inactivated Comments 06/20/2018 2:36 AM 06/26/2018 12:57 AM Care Teams Hoop Flaring Machine Operator Relationship Specialty Start Date End Date Winnie Turner, BOB [address] [place] [address] PCP - General NURSE PRACTITIONER 10/19/24 Vish Gifford MD [address] [facility] [address] [place] [address] Physician INTERVENTIONAL CARDIOLOGY 10/19/24
--- OUTSIDE RECORDS SUMMARY | 2025-04-16 00:33 | XMS_ITS | Clinical Summary ---
Author Organization [employer] [facility] lin Address [address] [facility] [place] [address] Care Team Providers Care Calender Supervisor Name Role Phone Unavailable Primary Care Provider Unavailabl e Social History Tobacco Use Types Packs/Day Years Used Date Smoking Tobacco: Never Assessed Sex and Gender Information Value Date Recorded Sex Assigned at Not on file Legal Sex Male 11:15 AM EST Gender Identity Not on file Sexual Orientation Not on file Plan of Treatment Not on file Medical Devices Not on file Insurance Stepsss
--- OUTSIDE RECORDS SUMMARY | 2025-04-16 00:33 | XMS_ITS | Patient Health Record ---
Author Organization [facility] Address [address] [place], [place] [address] Care Team Providers Care Industrial Organizational Psychologist Name Role Phone DERIC BARKSDALE Unavailable [phone] KrystinaWinnie gómez Unavailable Unavailable MARY MURDOCK Unavailable [phone] Allergies No Known Allergies Reason For Referral No Information Medications Medication SIG (Take, Route, Frequency, Duration) Notes Start Date End Date Status amLODIPine Besylate 10 MG Tablet Oral; Duration: 90 Days Acti ve Atorvastatin Calcium 20 MG Tablet Oral; Duration: 90 Days Acti ve clonazePAM 1 MG Tablet Oral; Duration: 30 Days Active DULoxetine HCl 30 MG Capsule Delayed Release Particles Oral; Duration: 90 Days Acti ve Tamsulosin HCl 0.4 MG Capsule Oral; Duration: 90 Days Acti ve Allopurinol 300 MG Tablet Oral; Duration: 90 Days Active Metoprolol Tartrate 25 MG Tablet Oral; Duration: 90 Days Acti ve Lidocaine 5 % Patch External; Duration: 60 Days Active Eliquis 5 MG Tablet Oral; Duration: 90 Days Active Finasteride 5 MG Tablet Oral; Duration: 90 Days Active Lisinopril 40 MG Tablet Oral; Duration: 90 Days Active Dutasteride 0.5 MG Capsule TAKE 1 CAPSUL E BY MOUTH EVERY DAY Oral; Duration: 90 Days Active Immunizations Vaccine Route Administration Date Status Comme nts Influenza, high dose seasonal Unknown 02/22/2023 Admini stered Influenza, quadrivalent, spl it, preservative free, 3 years or older Unknown 01/14/2020 Administered Pfizer-BioHiConversion.ru Covid-19 Vac cine 1st dose Unknown 06/07/2020 Administered Pfizer-Biontech Covid-19 Vac cine 1st dose Unknown 06/28/2020 Administered Social History Social History Additional Details Category Social Info Options Details Migrated Social History Migrated Social History History of tobacco use : , Smoking Status : Never smoked Vital Signs Height-cm 185.42 cm 03/11/2025 Weight-kg 132.45 kg 03/11/2025 Height 73.00 in 03/11/2025 Weight 292 lbs 03/11/2025 BMI 38.52 kg/m2 03/11/2025 Encounters Encounter Location Date Provider Diagnosis [address] [id number] 10/08/2024 MARY MATHIEU Tinea unguium B35.1 ; Pain in right toe(s) M79.674 ; Pain in left toe(s) M79.675 ; Atherosclerosis of [place] arteries of extremities with intermittent claudication, bilateral legs I70.213 and Type 2 diabetes mellitus with other circulatory complications E11.[address] [id number] 01/07/2025 MARY MUDROCK Tinea unguium B35.1 ; Pain in right toe(s) M79.674 ; Pain in left toe(s) M79.675 ; Atherosclerosis of [place] arteries of extremities with intermittent claudication, bilateral legs I70.213 and Type 2 diabetes mellitus with other circulatory complications E11.[address] [id number] 03/11/2025 MARY MATHIEU Tinea unguium B35.1 ; Pain in right toe(s) M79.674 ; Pain in left toe(s) M79.675 ; Atherosclerosis of [place] arteries of extremities with intermittent claudication, bilateral legs I70.213 and Type 2 diabetes mellitus with other circulatory complications E11.59 [facility] [address] [place], [place] [id number] 05/07/2024 DERIC BARKSDALE Tinea unguium B35.1 ; Pain in right toe(s) M79.674 ; Pain in left toe(s) M79.675 ; Atherosclerosis of [place] arteries of extremities with intermittent claudication, bilateral legs I70.213 and Type 2 diabetes mellitus with other circulatory complications E11.[address] [id number] 07/09/2024 DERIC BARKSDALE Tinea unguium B35.1 ; Pain in right toe(s) M79.674 ; Pain in left toe(s) M79.675 ; Atherosclerosis of [place] arteries of extremities with intermittent claudication, bilateral legs I70.213 and Type 2 diabetes mellitus with other circulatory complications E11.59 Assessments Encounter Date Diagnosis (ICD Code) Assessment Notes Treatment Notes Treatment Clinical Notes Section Notes 05/07/2024 Tinea unguium (ICD-10 - B35.1) NAIL [...] any subungual debris and necrotic tissue removed 01/07/2025 Tinea unguium (ICD-10 - B35.1) NAIL DEBRIDEMENT: Nails 1-5 Bilateral were debrided extensively with nail nippers and emery board, reducing length and girth to pink healthy tissue with any subungual debris and necrotic tissue removed 03/11/2025 Tinea unguium (ICD-10 - B35.1) NAIL DEBRIDEMENT: Nails 1-5 Bilateral were debrided extensively with nail nippers and emery board, reducing length and girth to pink healthy tissue with any subungual debris and necrotic tissue removed 01/07/2025 Pain in right toe(s) (ICD-10 - M79.674) 10/08/2024 Pain in right toe(s) (ICD-10 - M79.674) 07/09/2024 Pain in right toe(s) (ICD-10 - M79.674) 05/07/2024 Pain in right toe(s) (ICD-10 - M79.674) 03/11/2025 Pain in right toe(s) (ICD-10 - M79.674) 03/11/2025 Pain in left toe(s) (ICD-10 - M79.675) 05/07/2024 Pain in left toe(s) (ICD-10 - M79.675) 07/09/2024 Pain in left toe(s) (ICD-10 - M79.675) 10/08/2024 Pain in left toe(s) (ICD-10 - M79.675) 01/07/2025 Pain in left toe(s) (ICD-10 - M79.675) 01/07/2025 Atherosclerosis of [place] arteries of extremities with intermittent claudication, bilateral legs (ICD-10 - I70.213) Patient educated on risks and aggravating factors of PVD, including conservative treatment options such as a diet and exercise regimen to aid in slowing progression of vascular disease. Check and protect LE bilateral daily. Call if any changes or concerns. 03/11/2025 Atherosclerosis of [place] arteries of extremities with intermittent claudication, bilateral legs (ICD-10 - I70.213) Patient educated on risks and aggravating factors of PVD, including conservative treatment options such as a diet and exercise regimen to aid in slowing progression of vascular disease. Check and protect LE bilateral daily. Call if any changes or concerns. 10/08/2024 Atherosclerosis of [place] arteries of extremities with intermittent claudication, bilateral legs (ICD-10 - I70.213) 05/07/2024 Atherosclerosis of [place] arteries of extremities with intermittent claudication, bilateral legs (ICD-10 - I70.213) 07/09/2024 Atherosclerosis of [place] arteries of extremities with intermittent claudication, bilateral legs (ICD-10 - I70.213) 05/07/2024 Type 2 diabetes mellitus with other [...] as well as the Amputation Prevention Guide. 03/11/2025 Type 2 diabetes mellitus with other circulatory complications (ICD-10 - E11.59) Diabetic Foot Care: The patient was educated on diabetes and the lower extremity. The patient was instructed to check his feet daily to report any problems or signs of infection immediately. The patient was provided written information on Diabetic Foot Care as well as the Amputation Prevention Guide. 01/07/2025 Type 2 diabetes mellitus with other circulatory [...] Treatment Next Appt Details Provider Name:MARY CAMARILLO, 05/20/2025 01:40:00 PM, [address] [place] [address], [phone], Insurance Providers Payer Name Payer Address Payer Phone Subscriber Number Group Number Insured Name Patient Relationship to Insured Coverage Start Date Coverage End Date [employer] [address] [place] [address] [id number] CARINA NICHOLAS Self - patient is the insured
--- OUTSIDE RECORDS SUMMARY | 2025-04-16 00:33 | XMS_ITS | Clinical Summary ---
Author Organization [facility] Address [address] [place] [address] Care Team Providers Care Wire Mesh Filter Fabricator Name Role Phone Miscellaneous, Not In File Primary Care Provider Unavailable Allergies Active Allergy Reactions Criticality Noted Date Comments Carbamazepine Other (See comments) Low 06/20/2018 elevates BP Oseltamivir Mental status changes Low 01/22/2018 Medications multivitamin tabletIndicati ons:Vitamin Deficiency Prevention Take 1 tablet by mouth Active cholecalcifero l (VITAMIN D-3) 5,000 unit capsule Take 1 capsule (5,000 Units total) by mouth daily Active tamsulosin (FLOMAX) 0.4 mg extended release capsule Take 1 capsule (0.4 mg total) by mouth daily 12 10/16/19 18 Active ELIQUIS 5 mg tablet Take 1 tablet (5 mg total) by mouth 2 (two) times a day 07/10/19 19 Active amLODIPine (NORVASC) 10 mg tablet TAKE ONE TABLET EVERY DAY IN THE MORNING 2 01/03/20 19 Active metoprolol (LOPRESSOR) 25 mg tablet Take 1 tablet (25 mg total) by mouth 2 (two) times a day 3 12/25/19 19 Active atorvastatin (LIPITOR) 20 mg tablet Take 1 tablet (20 mg total) by mouth daily 09/10/19 20 Active lidocaine (LIDODERM) 5 % 05/29/19 22 Active dutasteride (AVODART) 0.5 mg capsule TAKE 1 CAPSULE BY MOUTH EVERY DAY Oral for 90 Days Active omega-3 fatty acids-fish oil 300-1,000 mg capsule Take 2 capsules (2 g total) by mouth daily Active azelastine (ASTELIN) 137 mcg (0.1 %) nasal spray Administer 2 sprays into each nostril 2 (two) times a day 03/18/20 24 Active Mounjaro 7.5 mg/0.5 mL pen injector Inject 7.5 mg as directed every 7 days 03/26/20 24 Active allopurinoL (ZYLOPRIM) 300 mg tablet Take 1 tablet (300 mg total) by mouth daily 10/04/19 25 Active lisinopriL (PRINIVIL,ZEST RIL) 40 mg tablet Take 1 tablet (40 mg total) by mouth daily 10/06/[address] (CYMBALTA) 30 mg capsule Take 1 capsule (30 mg total) by mouth daily Active glucosamine sulfate 1,000 mg capsule Take by mouth Activ e clonazePAM (KlonoPIN) 1 mg tablet TAKE ONE TABLET BY MOUTH DAILY WITH LUNCH AND TAKE TWO TABLETS BY MOUTH AT BEDTIME 90 tablet 5 04/12/20 25 Active clonazePAM (KlonoPIN) 1 mg tablet TAKE ONE TABLET BY MOUTH DAILY WITH LUNCH AND TAKE TWO TABLETS BY MOUTH 90 tablet 5 09/11/19 25 025 Discontinued Active Problems Problem Noted Date Diagnosed Date Neuropathic pain of both feet 08/05/2018 Multiple sclerosis 11/21/2010 Overview (09/05/2023): MS medication history: [facility] Ocrevus: Assessment & Plan (10/14/2024 11:52 AM [...] a brace that they can purchase through [employer] and they can also talk with pharmacist at [facility] or [facility] who also likely carry these braces. The [...] the information again for the product on [employer]. We will see the patient back in follow up instructed him to reach out if any questions arise before our next visit. 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 Frequent urination Muscle [...] on file Legal Sex Male 5:19 AM BONSAI TENDER Gender Identity Male 01/13/2020 8:11 PM CDT Sexual Orientation Not on file Last Filed Vital Signs [...] - Tdap) 08/28/1962 Hepatitis B Screening 08/28/1969 Abdominal Aortic Aneurysm (A AA) Screen 08/28/2016 Well Visit 65+ 08/28/2016 Zoster Vaccine (2 of 2) 04/15/2018 02/18/2018, 08/02 Covid-19 Vaccine (4 - 2024-2 6 season) 2025 04/10/2021, 06/28/2020, 06/07/2020 Influenza Vaccine (#1) 2025 , 02/26/2023, 02/15/2022, Additional history exists Pneumococcal vaccine 65+ Completed 02/03/2019, 02/03 Insurance MEDICARE [facility] AETNA MEDICARE Care Teams Wire Mesh Filter Fabricator Relationship Specialty Start Date End Date Miscellaneous, Not In File PCP - General 07/06/19
--- OUTSIDE RECORDS SUMMARY | 2025-04-16 00:33 | XMS_ITS | Encounter Summary ---
Author Organization [facility] Healthcare Address [address] [place] [address] Care Team Providers Care Meatman Name Role Phone Miscellaneous, Not In File Primary Care Provider Unavailable Encounter Details Date Type Department Care Team (Late st Contact Info) Description 12/13/2020 Telephone [facility] - [facility] [address] [place] [address] Transcribed Order, Provider Social History Tobacco Use Types Packs/Day Years Used Date Smoking Tobacco: Former Smokeless Tobacco: Never Alcohol Use Standard Drinks/Week Comments No 0 (1 standard drink = 0.6 oz pur e alcohol) Sex and Gender Information Value Date Recorded Sex Assigned at Not on file 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
--- OUTSIDE RECORDS SUMMARY | 2025-04-16 00:33 | XMS_ITS | Clinical Summary ---
Author Organization [facility] Address [address] [place] [address] Care Team Providers Care Spray Mixer Name Role Phone Rocío Patel MD Primary Care Provider [phone] Source Comments [facility] Affiliates and Associated Physician Practices is amultiple site organization consisting of ambulatory clinics and hospital sitesin [place], [place], [place] and [place]. This disclosure is being madepursuant to the Care Everywhere program and may not contain all information available regarding this patient. Last updated 18.[facility] Allergies Active Allergy Reactions Criticality Noted Date [...] Reported on 05/28/2016 4 10/31/19 16 Active [place]-3 Fatty Acids (FISH OIL) 1200 MG Take 1,200 mg by mouth 2 times daily Active Multiple Vitamin (MULTI VITAMIN MENS PO) Take 1 tablet by mouth once daily Active vitamin D, cholecalciferol, 2000 UNITS tablet Take 2,000 Units by mouth once daily Active LTRFLBN-QONESR-WR CHONDR-MSM PO Take 1 Tab by mouth [...] Comments Blood Pressure 142/106 05/31/2017 12:16 PM HADOOP JAVA DEVELOPER Pulse 88 05/31/2017 12:16 PM HADOOP JAVA DEVELOPER Temperature 37.1 C (98.8 F) 12/17/2016 7:58 AM CDT Respiratory Rate 16 05/31/2017 12:16 PM HADOOP JAVA DEVELOPER Oxygen Saturation 97% 05/31/2017 12:16 PM HADOOP JAVA DEVELOPER Inhaled Oxygen Concentration - - Weight 138.8 kg (306 lb) 05/31/2017 12:16 PM HADOOP JAVA DEVELOPER Height 185.4 cm (6' 1) 05/31/2017 12:16 PM HADOOP JAVA DEVELOPER Body Mass Index 40.37 05/31/2017 12:16 PM HADOOP JAVA DEVELOPER Plan of Treatment Health Maintenance Due Date [...] 50+ (1 of 1 - PCV) 08/28/2001 Respiratory Syncytial Virus (RSV) Vaccine Pt: or over 60 yrs (1 - Risk 50-74 years 1-dose series) 08/28/2001 ZOSTER VACCINE (1 of 2) 08/28/2001 AAA SCREENING 08/28/2016 SCREENING FOR DIABETES 11/28/2016 DEPRESSION SCREENING 05/06/2024 MEDICARE AWV CALENDAR YEAR 2024 COVID-19 VACCINE (2024-2 6 season) 2025 INFLUENZA VACCINE (#1) 2025 HEPATITIS B VACCINE [...] Date of Phone Billing Address Personal/Family [address] [place] [address] AETNA MEDICARE ADV SELF PAY NO INSURANCE Member Subscriber Plan / Payer (Ef fective for All Dates) Name:Jag Retana Member ID:Not on file Relation to Subscriber:Not on file Name:JAG RETANA Subscriber ID:Not on file (Home) Address: [address] [place] [address] Payer ID:Not on file Group ID:Not on file Type:Self Pay Address: [place], [place] * Guarantor: JAG RETANA Account Type Relation to Patient Date of Phone Billing Address Personal/Family [address] [place] [address] AETNA MEDICARE ADV SELF PAY NO INSURANCE Member Subscriber Plan / Payer (Ef fective for All Dates) Name:Jag Retana Member ID:Not on file Relation to Subscriber:Not on file Name:JAG RETANA Subscriber ID:Not on file (Home) Address: [address] [place] [address] Payer ID:Not on file Group ID:Not on file Type:Self Pay Address: [place], [place] * Guarantor: JAG RETANA Account Type Relation to Patient Date of Phone Billing Address Personal/Family [address] [place] [address] AETNA MEDICARE ADV SELF PAY NO INSURANCE Member Subscriber Plan / Payer (Ef fective for All Dates) Name:Jag Retana Member ID:Not on file Relation to Subscriber:Not on file Name:JAG RETANA Subscriber ID:Not on file (Home) Address: [address] [place] [id number] Payer ID:Not on file Group ID:Not on file Type:Self Pay Address: [place], [place] Care Teams Spray Mixer Relationship Specialty Start Date End Date Rocío Patel MD [address] [place] [address] PCP - General Surgery 11/11/15
[2025-04-16 01:14] VITALS: O2SAT 89
[2025-04-16 01:15] VITALS: O2SAT 96
[2025-04-16 01:22] VITALS: BP 129/74; PULSE 78; RESP 21; O2SAT 91
--- NOTE | 2025-04-16 02:20 | ECG_ITS ---
Test Date: 2025-04-16 02:16:13 Measurements Intervals [place] Rate: 75 P: 31 OR: 193 QRS: 11 QRSD: 109 T: 53 QT: 408 QTc: 458 Interpretive Statements SINUS RHYTHM NONSPECIFIC ST & T-WAVE ABNORMALITY- DIFFUSE LEADS BORDERLINE ECG Compared to ECG 04/15/2025 23:22:18 NO SIGNIFICANT CHANGE Electronically Signed On 04-16-2025 06:29:25 AERODYNAMICS ENGINEER by Giovanny Lino D.O.
[2025-04-16 03:12] LABS: Troponin I < 0.012 ng/mL (0.000-0.034)
[2025-04-16 04:22] VITALS: BP 126/77; PULSE 81; RESP 19; O2SAT 94
[2025-04-16 04:25] VITALS: BP 126/77; PULSE 81; RESP 19; O2SAT 94
== END 2025-04-16 04:28 | disposition home or self-care (01) ==
PROVIDERS: Emergency Provider Student in an Organized Health Care Education/Training Program; PCP Nurse Practitioner Family
DX: R07.9 Chest pain, unspecified (principal); G35.D Multiple sclerosis, unspecified; E11.9 Type 2 diabetes mellitus without complications; I10 Essential (primary) hypertension; Z79.01 Long term (current) use of anticoagulants; Z86.711 Personal history of pulmonary embolism; Z86.73 Personal history of transient ischemic attack (TIA), and cerebral infarction without residual deficits; Z87.891 Personal history of nicotine dependence
CPT/HCPCS: 36415; 71045; 71275; 80053; 83690; 84484; 85025; 85610; 85730; 93005; 99284; Q9967